=== PATIENT | female | born 1935 | race Caucasian/White ===

== ENCOUNTER 2024-07-08 12:58 | Outpatient (AMB) | payer MEDICARE, SELFPAY ==
--- NOTE | 2024-07-08 13:05 | MHC.OFFVIS ---
Vital Signs 07/08/24 13:06 Height 5 ft 6 in Weight 212 lb BMI 34.2 BP 132/84 Blood Pressure Location Rt brachial Position Sitting Intake Visit Reasons: ENP-Parkinson Intake Note: Patient presents for parkinsons. Allergies No Known Allergies Allergy (Verified 07/08/24 13:08) Medication List - Last Reconciled 07/08/24 by Lucy Vo MD apixaban (Eliquis) 5 mg PO BID carbidopa-levodopa 25-100 mg orally 2 tabs bid and 2 1/2 q noon ( 2-2 1/2-2); clotrimazole-betamethasone 1-0.05 % appl topical dorzolamide 2% drps ophthalmic (eye) dorzolamide-timolol 22.3-6.8 mg/mL ophthalmic (eye) levothyroxine 112 mcg PO DAILY nystatin 1 appl topical BID-TID venlafaxine ER 75 mg PO DAILY venlafaxine ER 37.5 mg PO DAILY HPI Comments Details: 88 year old female with Parkinson's disease diagnosed in 2012 was seen in [facility] for a new patient visit. Her main symptoms are gait , balance issues, difficulty with motor coordination.she lives with her partner at [facility] . She is here with her occasional caregiver Nurse today. She has memory changes, loses things and physical decline. She has bilateral hearing difficulty. Spouse does most of the care taking, - and Sundays she has network security officer come in and help with ADLs. She sleeps in until 9:30am, side sleeper has rails on bed to help her turn over. Has RUDOLPH - not on CPAP, denies hallucinations, needs time for processing, and has scary dreams, (RBD) Mood is anxious, scared about her life and depression. She doesn't exercise, lives in an independent living community. ([facility]) Can dress herself and button her shirt, cut her food uses a knife and fork. Recommended hand writing exercising and coloring to improve hand control. She uses a walker, PT from [facility], after daughter noticed her gait was off balance foot turning in. Has Miralax for constipation and Urinary incontinence at night predominantly, less so during the day. . [facility] Medical History RUDOLPH (obstructive sleep apnea) Afib Hearing loss Glaucoma Depression Hypothyroidism Parkinson's disease with dyskinesia Surgical History History of back surgery Social History Alcohol intake: never Patient Tobacco Use Status: Never used Tobacco Physical Exam Vital Signs: Last Vital Signs BP 132/84 07/08/24 13:06 BMI result Body Mass Index 34.2 Const General: cooperative, comfortable, no acute distress and tired appearing Nutritional Appearance: overweight Orientation/consciousness: patient oriented x3 Limitations: ambulation with walker Neuro Other: Eye - decreased upgazegaze tongue - normal Mild decreased facial expression and blink Voice- dysprosody no rest tremors 1 + R / cog wheeling .Tone normal left UE Hand movements -d ecreased anika FFM decreased foot taps L<R Spinal stenosis past surgery Mild dyskinesias Uses walker, stooped in lower back completely, and leaning to the left upon ambulation. General: patient oriented x3 and moves all extremities Motor exam (neuro): 5/5 motor strength present throughout Deep tendon reflexes (DTR's): Right triceps reflex intensity grade: 1+, Left triceps reflex intensity grade: 1+, Rt Biceps (C5, C6): 1+, Left biceps reflex intensity grade: 1+, Right brachioradialis reflex intensity grade: 1+, Left brachioradialis reflex intensity grade: 1+, Right patellar reflex intensity grade: 1+ and Left patellar reflex intensity grade: 1+ Coordination: [id number] test normal Assessment & Plan Assessment & Plan (1) Parkinson's disease with dyskinesia: Code(s): G20.B1 - Parkinson's disease with dyskinesia, without mention of fluctuations Category: Medical Qualifiers: Fluctuating manifestations: without fluctuating manifestations Qualified Code(s): G20.B1 - Parkinson's disease with dyskinesia, without mention of fluctuations Plan I suggested she continue carbidopa/levodopa 25/100 2- 15/10-2 will consider adding amantadine to help with dyskinesias Home PT will do a more detailed cognitive evaluation during her next visit. Coding Level of Care Code New Pt Level 4 (45672) Complex EM visit Add On G2211 Diagnoses Parkinson's disease with dyskinesia without fluctuating manifestations G20.B1 Fluctuating manifestations: without fluctuating manifestations
[2024-07-08 13:06] VITALS: BP 132/84; BMI 34.2
== END 2024-07-08 13:52 | disposition home or self-care (01) ==
PROVIDERS: PCP Family Medicine; Visit Provider Physician Assistant Medical
DX: G20.B1 Parkinson's disease with dyskinesia, without mention of fluctuations (principal)
CPT/HCPCS: 99204; G2211

== ENCOUNTER → 2024-07-08 12:58 | Outpatient (BNVA) | payer MEDICARE, SELFPAY | PROVIDERS: PCP Family Medicine; Visit Provider Psychiatry & Neurology Neurology | DX: G20.B1 Parkinson's disease with dyskinesia, without mention of fluctuations (principal) | CPT/HCPCS: 99202 ==

== ENCOUNTER 2025-01-19 15:06 | Outpatient (AMB) | payer MEDICARE, SELFPAY ==
[2025-01-19 15:14] VITALS: PULSE 81; O2SAT 102
--- NOTE | 2025-01-19 15:14 | A.OFFVIS_ITS ---
Vital Signs 01/19/25 15:14 Height 5 ft 6 in BMI Reason not done Patient refused/unable Pulse 81 Pulse Source Pulse Oximeter Pulse Oximetry (%) 102 H Oxygen Delivery Method Room Air Intake Visit Reasons: 6m follow up Parkinson Intake Note: Patient presents follow up Parkinson's. lot more concussion. Able to ambulate with walker. has some there with her from 10-4 and 5-9. Patient fell had fractured left hip and had a left hip replacement back in mid October. Saw Dr Raya post surgery next appointment in 1yr. Accompanied by: Other Relationship Allergies No Known Allergies Allergy (Verified 01/19/25 15:18) HPI Comments Details: 89 year old female with Parkinson's disease diagnosed in 2012 was seen in [place], here for f/u. Her rn complex care Meghann the nurse helps with history. She requires daily care with nurses aide M-F 10am to 4pm and again at 5 to 9pm. Her main symptoms are gait, balance issues, difficulty with motor coordination. She lives with her partner at [facility] she has PT/OT with speech therapy on site, she needs one on one assist with walker, and limited wheel chair time due to recetn hip fracture in October 2024, she doesn't like to exercise and has physically declined, refuses meals and can be a good eater at other times, likes to have finger foods can chew and swallow with no dysphagia or drooling, speech is slurred, difficult to understand. Cognitive decline with memory deficits, recent changes she loses things, is more forgetful. On sinemet 2.5mg TID and venlafaxine 37.5mg daily. She has bilateral hearing loss with hearing aids in place. Her partner Keerthi is having a difficult time caring for Fernando since the fall, as Keerthi also has cognitive deficits, M-F the SHINGLE CUTTER is there as Fernando need help with all her ADLs to include showering, eating, toileting and transferring, dressing, cutting up food. She sleeps in until 9:30am, is a good sleeper has rails on bed to help her turn over. Has RUDOLPH - not on CPAP, is having more hallucinations, needs time for processing, and has scary dreams (RBD). Mood is anxious, fidgets in the recliner and worries about her partner's health. She denies constipation, uses miralax daily, wears diapers for incontinence at night. Has UE coarse tremors bilaterally, difficulty with boiler shop mechanic. She uses a walker, PT from [facility], after daughter noticed her gait was off balance foot turning in. She [facility], and will be able to go outside more, pet the therapy dogs and sit outside as the weather is improving. [facility] Medical History RUDOLPH (obstructive sleep apnea) Afib Hearing loss Glaucoma Depression Hypothyroidism Parkinson's disease with dyskinesia Surgical History History of left hip replacement History of back surgery Social History Alcohol intake: never Patient Tobacco Use Status: Never used Tobacco Physical Exam Vital Signs: Last Vital Signs Pulse 81 01/19/25 15:14 Pulse Ox 102 H 01/19/25 15:14 Oxygen Delivery Method Room Air 01/19/25 15:14 Const General: cooperative, comfortable, no acute distress and tired appearing Nutritional Appearance: overweight Orientation/consciousness: patient oriented x3 Limitations: ambulation with walker Neuro Other: Eye - decreased upgaze tongue - normal Mild decreased facial expression and blink Voice- dysprosody, slurred, slow intensity, no drooling. coarse hand tremors anika 1 + R / cog wheeling .Tone normal left UE Hand movements -decreased anika FFM decreased anika foot taps L<R Spinal stenosis past surgery Mild dyskinesias Uses walker, stooped in lower back completely, wheelchair bound today. General: patient oriented x3 and moves all extremities Psych Appearance: well kempt Speech and movement: Slurred speech present and Slowed movement present (Neuro) Assessment & Plan Assessment & Plan (1) Parkinson's disease with dyskinesia: Code(s): G20.B1 - Parkinson's disease with dyskinesia, without mention of fluctuations Category: Medical Qualifiers: Fluctuating manifestations: without fluctuating manifestations Qualified Code(s): G20.B1 - Parkinson's disease with dyskinesia, without mention of fluctuations Plan Parkinsons Dyskinesias continue carbidopa/levodopa 25/100 TID Start 100mg amantadine daily for 3 weeks and will f/u for tolerance of medication, to help with dyskinesias. Continue Home PT/OT and speech as needed. Cognitive Decline will do a more detailed cognitive evaluation during her next visit. Medications: New amantadine HCl may start 100mg daily for the next three weeks and f/u for dose adjustment if tolerating the medication well. 100 mg PO DAILY 30 days 30 caps 1RF parkinsons MDD 100mg po daily G20.B1 - Parkinson's disease with dyskinesia, without mention of fluctuations Patient Instructions: Sleep Hygiene provided: set a scheduled bedtime and wake time to help regulate the circadian rhythm and balance the release of pituitary hormones. Sleep in a dark room, temperatures below 68 degrees, and no devices n bed. Limit caffeinated products 6 hours prior to bed, and limit fluids 2-4 hours prior to bed. Gentle night yoga, diffusing essential oils, and playing soft music can be relaxing. Coding Level of Care Code Est Pt Level 4 (65192) Complex EM visit Add On G2211 Diagnoses Parkinson's disease with dyskinesia without fluctuating manifestations G20.B1 Fluctuating manifestations: without fluctuating manifestations Time Spent (min) 35 Comment cognitive decline, worsening tremors.
--- OUTSIDE RECORDS SUMMARY | 2025-01-19 15:50 | XMS_ITS ---
Author Organization [facility] chioma Address [address] [place] [address] Care Team Providers Care Senior Java Software Engineer Name Role Phone Nahed Ramos Primary Care Provider [phone] Allergies No Known Allergies REASON FOR VISIT f/u parkinsons & constipation (IH), Pt is here with: [facility]- agency nurse from [facility] [employer],was at hospital 11/17-11/23 L femur fracture; notes in pt docs Medications Medication SIG (Take, Route, Frequency, Duration) Notes Start Date End Date Status Magnesium Glycinate 100 MG 1 PO QD Not-Taking AFO BRACE LEFT DIRECTED FOR L FOOT DROP for FOR USE DAILY 05/22/2018 Not-Taking Synthroid 112 MCG 1 tab(s) orally once a day for 90 days Active Fish Oil 1 QD Not-Taking MiraLax Mix-In Ren[place] 17 GM 1/2 packet mixed with 8 ounces of fluid Orally Once a day for 30 days /2 a packet daily in AM 09/20/2024 Active Effexor XR 37.5 MG 1 cap(s) orally once a day for 30 days Active Nystatin 584906 UNIT/GM 1 tye applied topically 3 times a day for 30 days 08/04/2023 Active Vitamin D3 25 MCG (1000 UT) 1 cap(s) PO once a day Active Eliquis 5 MG TAKE 1 TABLET BY MOUTH TWICE A DAY for 90 Active Cosopt 2.23%-0.68% 1 GTT IN R EYE 2 TIMES A DAY Active Artificial Tears Act andrés Sinemet 25-100 MG 2.5 tab(s) orally 3 times a day 2, then 2 1/2, then 2 Active REFRESH PM - 1 TYE IN EACH EYE RIGHT EYE AT PM Active Tylenol Extra Strength 500 MG 2 tabsthree times dailyprn Active Miconazole Nitrate 2 % 1 tye applied topically 2 times a day prn Active Multivitamin - 1 tablet Orally Once a day Active Senna 8.6 MG 2 tablets at bedtime Orally Once a day at night Active Social History Tobacco Use: Social History Observation Description Date Details (start date - stop date) Never Smoker NA - NA Smoking Smart Form: Question Answer Notes Are you a: nonsmoker Section Notes: Pt good friends w/ Mag Abbott and Marly (pt's here) [place] [facility] [facility] Andreea lives in [facility] [phone], cell is [phone]. HCP Invoked--06/2023(ANDREEA) HCP backup is Roger [place] [phone] rent a daughter Rosalina lives locally [phone] is local Vital Signs Temperature 96.7 degrees Fahrenheit 12/28/19 25 Blood pressure systolic 110 mm Hg 12/28/19 25 Blood pressure diastolic 70 mm Hg 025 Oximetry 97 12/27/2024 Encounters Encounter Location Date Provider Diagnosis [facility] [address] [address] 12/27/2024 Nahed Ramos Parkinson's disease with dyskinesia, with fluctuations G20.B2 ; Unspecified fracture of left femur, initial encounter for closed fracture S72.92XA ; Muscle weakness (generalized) M62.81 ; Hypothyroidism E03.9 and RUDOLPH G47.33 Assessments Encounter Date Diagnosis (ICD Code) Assessment Notes Treatment Notes Treatment Clinical Notes Section Notes 12/27/2024 Parkinson's disease with dyskinesia, with fluctuations (ICD-10 - G20.B2) met w nurse hvac project manager and patient dirctly also review of hospital paperwork and plan of care total time spent 42 minutes 12/27/2024 Unspecified fracture of left femur, initial encounter for closed fracture (ICD-10 - S72.92XA) 12/27/2024 Muscle weakness (generalized) (ICD-10 - M62.81) 12/27/2024 Hypothyroidism (ICD-10 - E03.9) 12/27/2024 RUDOLPH (ICD-10 - G47.33) Plan Of Treatment Treatment Notes Assessment Notes Parkinson's disease with dys kinesia, with fluctuations met w nurse hvac project manager and patient chelitaly Next Appt Details Follow Up: prn, Reason: Provider Name:Nahed shafermelquiades, 05/12/2025 02:00:00 PM, [address], [place], [id number], Progress Notes * CLARY LEESADOB:1935 (89 yo F)Acc No.[id number]:12/27/2024 Progress Note Patient:?PIERRE LEES Appointment Provider:?Nahed Lloyd son :1935???Age:89 Y???Sex:Female D ate:12/27/2024 ?CHN#:[id number] Address:[address] [place], [place] [id number] Subjective: * Chief Complaints: * ???f/u parkinsons & constipa tion (IH)Pt is here with: [facility]- agency nurse from [facility] at hospital 11/17-11/23 L femur fracture; notes in pt docs * HPI: ???Interim History:? returned home after hip fracture now has help in the home and yoly is starting to give up some of the control nurse is filing her meds, the aide gives them at 10 a and 3pm and in get evening still having trouble feeding herseld. needs a lot of coaching and cuing walking w walker even in the home getting PT and OT in the home 2x week right now and the aides in hte home are working w her MCBRIDE and profound fatigue w short walks pt is afraid of falling constantly.. * ROS:?DERMATOLOGY:?Rash?no ,?no bedsores.?GASTROENTEROLOGY:?Constipation?currently controlled w miralax/senna alternating.? * Medical History:? * Surgical History:?spinal chad nosis surgery, Dr. Solis 05/07/2019[facility] ER to [facility] for weak gait 10/30/23-01/15Tooth extraction DH, L hip fracture 11/2024 * Hospitalization/Major Diagno stic Procedure:?[facility]-surgery for spinal stenosis-3 night stay 05/07/2019[facility]- fall, L hip fracture 11/2024 * Family History:?Father: dece ased.?Mother: , Mother may have had cancer, had hysterectomy, pt not sure about hx, diagnosed with Stroke, Diabetes.?Paternal Grand Father: diagnosed with Hypertension.? * Social History:?Lives: lives in an independent living apartment in [place]. Ed: MA. Smoking Smart Form?Are you a:?nonsmoker.?Smoking: no?.?Alcohol: no alcohol. Marital Status: , Yoly Chiang. Children: none. Occupation: Retired, was in [employer] in 1961. Advent: none. Exercise: not much, walks and the PT exercises. Caffeine: None. Pets: Dogs:1--dog 2020. Pt good friends w/ Mag Abbott and Marly (pt's here) lives in [facility] ?Yoly's daugther Andreea lives in [place] home [phone], cell is [phone]. HCP Invoked--06/2023(ANDREEA) HCP backup is Roger Lit [phone] rent a daughter Rosalina lives locally [phone] is local. * Medications:?TakingMultivita min - Tablet 1 tablet Orally Once a day Senna 8.6 MG Tablet 2 tablets at bedtime Orally Once a day at night Tylenol Extra Strength 500 MG Tablet 2 tabsthree times dailyprn Miconazole Nitrate 2 % Cream 1 tye applied topically 2 times a day , Notes to Pharmacist: prnREFRESH PM - OINTMENT 1 TYE IN EACH EYE RIGHT EYE AT PM Artificial Tears Sinemet 25-100 MG Tablet 2.5 tab(s) orally 3 times a day , Notes to Pharmacist: 2, then 2 1/2, then 2Eliquis 5 MG Tablet TAKE 1 TABLET BY MOUTH TWICE A DAY Cosopt 2.23%-0.68% SOLUTION 1 GTT IN R EYE 2 TIMES A DAY Vitamin D3 25 MCG (1000 UT) Tablet 1 cap(s) PO once a day Nystatin 271554 UNIT/GM Powder 1 tye applied topically 3 times a day MiraLax Mix-In Ren[place] 17 GM Packet 1/2 packet mixed with 8 ounces of fluid Orally Once a day 1/2 a packet daily, Notes to Pharmacist: in AMEffexor XR 37.5 MG Capsule Extended Release 24 Hour 1 cap(s) orally once a day Synthroid 112 MCG Tablet 1 tab(s) orally once a day Taking Multivitamin - Tablet 1 tablet Orally Once a day Taking Senna 8.6 MG Tablet 2 tablets at bedtime Orally Once a day at night Taking Tylenol Extra Strength 500 MG Tablet 2 tabsthree times dailyprn Taking Miconazole Nitrate 2 % Cream 1 tye applied topically 2 times a day , Notes to Pharmacist: prnTaking REFRESH PM - OINTMENT 1 TYE IN EACH EYE RIGHT EYE AT PM Taking Artificial Tears Taking Sinemet 25-100 MG Tablet 2.5 tab(s) orally 3 times a day , Notes to Pharmacist: 2, then 2 1/2, then 2Taking Eliquis 5 MG Tablet TAKE 1 TABLET BY MOUTH TWICE A DAY Taking Cosopt 2.23%-0.68% SOLUTION 1 GTT IN R EYE 2 TIMES A DAY Taking Vitamin D3 25 MCG (1000 UT) Tablet 1 cap(s) PO once a day Taking Nystatin 424774 UNIT/GM Powder 1 tye applied topically 3 times a day Taking MiraLax Mix-In [place] 17 GM Packet 1/2 packet mixed with 8 ounces of fluid Orally Once a day 1/2 a packet daily, Notes to Pharmacist: in AMTaking Effexor XR 37.5 MG Capsule Extended Release 24 Hour 1 cap(s) orally once a day Taking Synthroid 112 MCG Tablet 1 tab(s) orally once a day Not-Taking/PRNFish Oil 1 QD Magnesium Glycinate 100 MG Capsule 1 PO QD AFO BRACE LEFT DX: M21.372 DIRECTED FOR L FOOT DROP Not-Taking/PRN Fish Oil 1 QD Not-Taking/PRN Magnesium Glycinate 100 MG Capsule 1 PO QD Not-Taking/PRN AFO BRACE LEFT DX: M21.372 DIRECTED FOR L FOOT DROP DiscontinuedMiraLax - POWDER FOR RECONSTITUTION DIRECTED ORALLY ONCE A DAY , Notes to Pharmacist: in AMBactrim DS 800-160 MG Tablet 1 tablet Orally twice a day Effexor XR 75 MG Capsule Extended Release 24 Hour 1 cap(s) orally once a day Medication List reviewed and reconciled with the patientDiscontinued MiraLax - POWDER FOR RECONSTITUTION DIRECTED ORALLY ONCE A DAY , Notes to Pharmacist: in AMDiscontinued Bactrim DS 800-160 MG Tablet 1 tablet Orally twice a day Discontinued Effexor XR 75 MG Capsule Extended Release 24 Hour 1 cap(s) orally once a day Medication List reviewed and reconciled with the patient * Allergies:?N.K.D.A.no[Allerg ies Verified] Objective: * Vitals:?Initials:ldb, Temp: 96.7 F, Temp Route: T, HR: 96, PulseOx: 97, BP: 110/70. * Examination: ???General Examination: ?General Appearance:?alert and pleasant in nad, vague.?Heart:?normal S1S2.?Lungs:?clear to auscultation bilaterally? breathing is unlabord.?Musculoskeletal?In Wheelchair.? Assessment: * Assessment: 1.?Unspecified fracture of l eft femur, initial encounter for closed fracture - S72.92XA (Primary)???2.?Parkinson's disease with dyskinesia, with fluctuations - G20.B2???3.?Muscle weakness (generalized) - M62.81???4.?Hypothyroidism - E03.9???5.?RUDOLPH - G47.33??? Plan: * Treatment: * Procedure Codes:? * Follow Up:?prn * Images: Billing Information: * Visit Code:? 29901 Office Visit, Established Pt. * Procedure Codes:? Care Plan Details* * Sign off status: Completed true * Appointment Provider:?Gene Ramos MD Date:?12/27/2024 Generated for Printing/Faxing/eTransmitting on:?01/19/2025 03:50 PM EDT History and Physical Notes * HPI (History of Present Illness) Category Sub-Category Detail Notes Category Not es Interim History returned home after hip fracture now has help in the home and yoly is starting to give up some of the control nurse is filing her meds, the aide gives them at 10 a and 3pm and in get evening still having trouble feeding herseld. needs a lot of coaching and cuing walking w walker even in the home getting PT and OT in the home 2x week right now and the aides in hte home are working w her MCBRIDE and profound fatigue w short walks pt is afraid of falling constantly.. Examination Category Sub-Category Detail Notes Category Not es General Examination Heart: normal S1S2 Lungs: clear to auscultatio n bilaterally breathing is unlabord General Appearance: alert and pleasant i n nad, vague Musculoskeletal In Wheelchair
== END 2025-01-19 16:00 | disposition home or self-care (01) ==
LOC: HO.HSMS 15:07
PROVIDERS: PCP Family Medicine; Visit Provider Physician Assistant Medical
DX: G20.B1 Parkinson's disease with dyskinesia, without mention of fluctuations (principal)
CPT/HCPCS: 99214; G2211

== ENCOUNTER → 2025-01-19 15:06 | Outpatient (BNVA) | payer MEDICARE, SELFPAY | PROVIDERS: PCP Family Medicine; Visit Provider Physician Assistant Medical | DX: G20.B1 Parkinson's disease with dyskinesia, without mention of fluctuations (principal); G47.33 Obstructive sleep apnea (adult) (pediatric); R26.89 Other abnormalities of gait and mobility | CPT/HCPCS: 99212 ==

== ENCOUNTER 2025-05-30 13:58 | Outpatient (AMB) | payer MEDICARE, SELFPAY ==
--- OUTSIDE RECORDS SUMMARY | 2025-05-12 12:30 | XMS_ITS ---
Author Organization [facility] chioma Address [address] [place] [address] Care Team Providers Care Light Bulb Assembler Name Role Phone Nahed Ramos Primary Care Provider [phone] REASON FOR VISIT spoke with Meghann regarding refill request Encounters Encounter Location Date Provider Diagnosis [facility] [address] [place] [address] 05/12/2025 Nahed Ramos Plan Of Treatment Next Appt Details Provider Name:Nahed Burk [facility], 07/29/2025 09:00:00 AM, [address] [place], [address], Provider Name:Nahed Burk [facility], 11/23/2025 11:30:00 AM, [address] [place] [address], [phone], Progress Notes * CLARY LEESADOB:1935 (89 yo F)Acc No.[id number]:05/12/2025 Patient: PIERRE AGUIRRE Provider: Lizzy Ramos MD :1935 A ge:89 Y S ex:Female Date:05/12/2025 C HN#:[id number] Address: [place], [place] Subjective: * Chief Complaints: * s poke with Meghann regarding refill request * Electronic signature of Elida Ramos MD on 05/30/2025 at 04:27 PM EDT Sign off status: Pending * Provider: Lizzy Ramos MD Date: 0 05/12/2025 Generated for Bernard kincaid/Nikhil/Fabricio on: 1 04:27 PM EDT
--- OUTSIDE RECORDS SUMMARY | 2025-05-20 04:30 | XMS_ITS ---
Author Organization [facility] chioma Address [address] [place] [address] Care Team Providers Care Psychometric Examiner Name Role Phone Nahed Ramos Primary Care Provider [phone] REASON FOR VISIT care plan Encounters Encounter Location Date Provider Diagnosis [facility] [address] [place] [address] 05/20/2025 Nahed Ramos Plan Of Treatment Next Appt Details Provider Name:Nahed Burk [facility], 07/29/2025 09:00:00 AM, [address] [place], [address], Provider Name:Nahed Burk [facility], 11/23/2025 11:30:00 AM, [address] [place] [address], [phone], Progress Notes * CLARY LEESADOB:1935 (89 yo F)Acc No.[id number]:05/20/2025 Patient: PIERRE AGUIRRE Provider: Lizzy Ramos MD :1935 A ge:89 Y S ex:Female Date:05/20/2025 C HN#:[id number] Address: [place], [place] Subjective: * Chief Complaints: * C are plan * Electronic signature of Elida Ramos MD on 05/30/2025 at 04:26 PM EDT Sign off status: Pending * Provider: Lizzy Ramos MD Date: 0 05/20/2025 Generated for Bernard kincaid/Nikhil/Fabricio on: 1 04:26 PM EDT
--- OUTSIDE RECORDS SUMMARY | 2025-05-25 07:30 | XMS_ITS ---
Author Organization [facility] chioma Address [address] [place] [address] Care Team Providers Care Footwear Sales Coordinator Name Role Phone Nahed Ramos Primary Care Provider Allergies No Known Allergies Results Component Value Reference Range Flag Notes LIPID PANEL Reviewed date:05/27/2025 03:09:38 PM Interpretation: Performing Lab:NL2, [employer] [facility] [address] Ana Saldaña Notes/Report: Received Date: NON-FASTING; NON-FASTING; NON-FASTING; NON-FASTING; NON-FAST CHOLESTEROL, TOTAL 176 <200 mg/dL N HDL CHOLESTEROL 48 > OR = 50 mg/dL L TRIGLYCERIDES 105 <150 mg/dL N LDL-CHOLESTEROL 108 H Reference range: <100 Desirable range <100 mg/dL for primary prevention; <70 mg/dL for patients with CHD or diabetic patients with > or = 2 CHD risk factors. LDL-C is now calculated using the Dwayne-Narciso calculation, which is a validated novel method providing better accuracy than the Friedewald equation in the estimation of LDL-C. Dwayne COSBY et al. CHASE. 2013;310(19): 7360-6122 (http://education.WeHack.It.com/faq/FAQ16 4) CHOL/HDLC RATIO 3.7 <5.0 (calc) N NON HDL CHOLESTEROL 128 <130 mg/dL (calc) N For patients with diabetes plus 1 major ASCVD risk factor, treating to a non-HDL-C goal of <100 mg/dL (LDL-C of <70 mg/dL) is considered a therapeutic option. Vitamin D25 OH Reviewed date:05/25/2025 09:04:04 PM Interpretation: Performing Lab:NL2, [facility] [place], [place] [phone] Ana Saldaña Notes/Report: Received Date: NON-FASTING; NON-FASTING; NON-FASTING; NON-FASTING; NON-FAST VITAMIN D,25-OH,TOTAL,IA 56 30-100 ng/mL N Vitamin D Status 25-OH Vitamin D: Deficiency: <20 ng/mL Insufficiency: 20 - 29 ng/mL Optimal: > or = 30 ng/mL For 25-OH Vitamin D testing on patients on D2-supplementation and patients for whom quantitation of D2 and D3 fractions is required, the QuestAssureD(TM) 25-OH VIT D, (D2,D3), LC/MS/MS is recommended: order code 11306 (patients >2yrs). See Note 1 Note 1 For additional information, please refer to http://education.[employer]/faq/KML319 (This link is being provided for informational/ educational purposes only.) COMPREHENSIVE METABOLIC PANL Reviewed date:05/27/2025 03:09:39 PM Interpretation: Performing Lab:NL2, [facility] Ana Saldaña Notes/Report: Received Date: NON-FASTING; NON-FASTING; NON-FASTING; NON-FASTING; NON-FAST GLUCOSE 104 65-99 mg/dL H Fasting reference interval For someone without known diabetes, a glucose value between 100 and 125 mg/dL is consistent with prediabetes and should be confirmed with a follow-up test. UREA NITROGEN (BUN) 13 7-25 mg/dL N CREATININE 0.54 0.60-0.95 mg/dL L EGFR 89 > OR = 60 mL/min/1.73m2 N BUN/CREATININE RATIO 24 6-22 (calc) H SODIUM 139 135-146 mmol/L N POTASSIUM 4.3 3.5-5.3 mmol/L N CHLORIDE 106 98-110 mmol/L N CARBON DIOXIDE 26 20-32 mmol/L N CALCIUM 8.4 8.6-10.4 mg/dL L PROTEIN, TOTAL 6.1 6.1-8.1 g/dL N ALBUMIN 3.3 3.6-5.1 g/dL L GLOBULIN 2.8 1.9-3.7 g/dL (calc) N ALBUMIN/GLOBULIN RATIO 1.2 1.0-2.5 (calc) N BILIRUBIN, TOTAL 0.4 0.2-1.2 mg/dL N ALKALINE PHOSPHATASE 78 37-153 U/L N AST 10 10-35 U/L N ALT 3 6-29 U/L L Verified by re peat analysis. CBC NO DIFF - 1759 Reviewed date:05/25/2025 09:04:04 PM Interpretation: Performing Lab:HERNÁN2, [facility] Ana Saldaña Notes/Report: Received Date: NON-FASTING; NON-FASTING; NON-FASTING; NON-FASTING; NON-FAST WHITE BLOOD CELL COUNT 5.6 3.8-10.8 Thousand/uL N RED BLOOD CELL COUNT 4.12 3.80-5.10 Million/uL N HEMOGLOBIN 12.0 11.7-15.5 g/dL N HEMATOCRIT 37.7 35.0-45.0 % N MCV 91.5 80.0-100.0 fL N MCH 29.1 27.0-33.0 pg N MCHC 31.8 32.0-36.0 g/dL L For adults, a slight decrease in the calculated MCHC value (in the range of 30 to 32 g/dL) is most likely not clinically significant; however, it should be interpreted with caution in correlation with other red cell parameters and the patient's clinical condition. RDW 13.1 11.0-15.0 % N PLATELET COUNT 302 140-400 Thousand/uL N MPV 9.5 7.5-12.5 fL N TSH Reviewed date:05/25/2025 09:04:04 PM Interpretation: Performing Lab:NL2, [facility] Ana Saldaña Notes/Report: Received Date: NON-FASTING; NON-FASTING; NON-FASTING; NON-FASTING; NON-FAST TSH 4.38 0.40-4.50 mIU/L N REASON FOR VISIT AWV- CE, Here with: Meghann (SKIDDER) & Kevon (SKIDDER), HCP: Mandie Haile (Confirmed) Roger Murrieta (Confirmed), BONE DENSITY: Last 03/10/24, IMMS: Due for PCV20 (checked MIIS-DB) Discuss with provider., here w meghann and kevon her nursing staff Medications Medication SIG (Take, Route, Frequency, Duration) Notes Start Date End Date Status Nystatin 103669 UNIT/GM Powder 1 tye applied topically 3 times a day; Duration: 30 days 08/04/2023 Active Magnesium Glycinate 100 MG Capsule 1 PO QD Active Cosopt 2.23%-0.68% SOLUTION 1 GTT IN R EYE 2 TIMES A DAY Not-Taking/PRN Fish Oil 1 QD Unknown AFO BRACE LEFT DX: M21.372 DIRECTED FOR L FOOT DROP; Duration: FOR USE DAILY 05/22/2018 Unknown Synthroid 112 MCG Tablet 1 tab(s) orally once a day; Duration: 90 days Active Eliquis 5 MG Tablet TAKE 1 TABLET BY MOUTH TWICE A DAY; Duration: 90 days Active Vitamin D3 25 MCG (1000 UT) Tablet 1 cap(s) PO once a day Active MiraLax Mix-In [place] 17 GM Packet 1/2 packet mixed with 8 ounces of fluid Orally Once a day; Duration: 30 days 1/2 a packet daily in AM 09/20/2024 Active Effexor XR 37.5 MG Capsule Extended Release 24 Hour 1 cap(s) orally once a day; Duration: 30 days Active Tylenol Extra Strength 500 MG Tablet 2 tabsthree times dailyprn Active Miconazole Nitrate 2 % Cream 1 tye applied topically 2 times a day prn Active REFRESH PM - OINTMENT 1 TYE IN EACH EYE RIGHT EYE AT PM Active Artificial Tears Act andrés Sinemet 25-100 MG Tablet 2.5 tab(s) orally 3 times a day 2, then 2 1/2, then 2 Active Multivitamin - Tablet 1 tablet Orally Once a day Active Senna 8.6 MG Tablet 2 tablets at bedtime Orally Once a day at night Active Magnesium Malate 1250 (141.7 Mg) MG Tablet as directed Orally Active Dorzolamide HCl 2 % Solution 1 drop into affected eye Ophthalmic Three times a day Active Timolol Maleate 0.5 % Solution 1 drop into affected eye Ophthalmic Once a day Active Immunizations Vaccine Route Administration Date Status Comme nts PREVNAR 20 PURCHASED IM Intramuscular 05/25/2025 Administe ramin Social History Tobacco Use: Social History Observation Description Date Details (start date - stop date) Never Smoker NA - NA Social History Social History Social Info Question Answer Notes Smoking Smart Form: Are you a: nonsmoker Additional Details Category Social Info Options Details Social History Occupation: Retired, was in [employer] in 1961 Alcohol: no alcohol Exercise: not much, walks and the PT exercises Caffeine: None Marital Status: Keerthi Haile Children: none Pets: Dogs:1- dog 2020 Catholic: Congregation lives lives in an inde pendent living apartment in [place] Ed: [place] Section Notes: Pt good friends w/ Mag Abbott and Marly (pt's here) lives in [facility] Christine daugther Andreea lives in [place] home [phone], cell is [phone]. HCP Invoked- 06/2023(ANDREEA) HCP backup is Roger Murrieta [phone] rent a daughter Rosalina lives locally [phone] is local Vital Signs Temperature 97.1 degrees Fahrenheit 05/25/20 25 Blood pressure systolic 124 mm Hg 05/25/20 25 Blood pressure diastolic 70 mm Hg 025 Oximetry 98 05/25/2025 unable to weigh due to fear w transfers. Encounters Encounter Location Date Provider Diagnosis [address] [address] 05/25/2025 Nahed Ramos Adult physical PAULY L Z00.00 ; Parkinson's disease with dyskinesia, with fluctuations G20.B2 ; Osteoporosis NOS M81.0 ; AFib, unspecified I48.91 and Encounter for immunization Z23 Assessments Encounter Date Diagnosis (ICD Code) Assessment Notes Treatment Notes Treatment Clinical Notes Section Notes 05/25/2025 Adult physical NORMAL (ICD-10 - Z00.00) 05/25/2025 Parkinson's disease with dyskinesia, with fluctuations (ICD-10 - G20.B2) 05/25/2025 Osteoporosis NOS (ICD-10 - M81.0) 05/25/2025 AFib, unspecified (ICD-10 - I48.91) 05/25/2025 Encounter for immunization (ICD-10 - Z23) Plan Of Treatment Pending Test Test Name Order Date VITAMIN B6, PLASMA 05/25/2025 Next Appt Details Follow Up: @ 6 mo fu afib/PD , 1 year next CPE, Reason: Provider Name:Nahed Conley At [facility], 07/29/2025 09:00:00 AM, [address], [place], [address], Provider Name:Nahed Conley [facility], 11/23/2025 11:30:00 AM, [address] [place], [address], History and Physical Notes * HPI (History of Present Illness) Category Sub-Category Detail Notes Category Not es Well Senior Visit Mental Status Review Mood Asse ssment:: Done they think she is losing weight.. her appetite is good. she loves ice cream gets therapeutic massage every week she is diong well. the ongoing issues are her 's behavior w her. they continue to work on that. 2 ensure a day and ice cream after meals Functional Ability Review Activities of Daily Living Assessment:: Done walks w walker short distances. w assistance/needs reminders nad they bring a chair behind them staff notice that her right leg turns in a litlee when walking when tired. toilets well w assistance and on a regular schedule. wears a brief--only wet overnight but not during the day feeds herself but needs some cuing sleeps well at night , has short nap after lunch she brushes her own teeth. Falls Risk Assessment:: Done no recent f alls. has around the clock aides and supervision Home Safety Assessment:: Done End of Life Care End of Life Care:: Discussed MO LST as before BMI Review BMI Review:: Done Decision Maker: same .. see chart. Examination Category Sub-Category Detail Notes Category Not es General Examination Neck, Thyroid : supple, no t hyromegaly, no lymphadenopathy, no JVD Heart: irregular irregular rhythm Lungs: clear to auscultatio n bilaterally Abdomen soft, NT/ND General Appearance: awake and mildly int eractive. minimally verbal but in no distress.. some yes/no responses well nourished and hydrated Skin no rash or skin lesi ons Breasts : no lumps felt on eit her side Peripheral pulses: no edema Back: no CVA tenderness Chest: normal shape and exp ansion Musculoskeletal In Wheelchair Progress Notes * CLARY LEESADOB:1935 (89 yo F)Acc No.[id number]:05/25/2025 Patient: PIERRE AGUIRRE Provider: Lizzy Ramos MD :1935 A ge:89 Y S ex:Female Date:05/25/2025 C #:[id number] Address:[address] [place], [place] [address] Subjective: * Chief Complaints: * A [place]- CEHere with: Meghann (SKIDDER) & Kevon (SKIDDER)HCP: Mandie Haile (Confirmed) Roger Murrieta (Confirmed) BONE DENSITY: Last 03/10/24IMMS: Due for PCV20 (checked MIIS-DB) Discuss with provider.Here w meghann and kevon her nursing staff * HPI: Mary abraham Senior Visit: Mental Status Review M ood Assessment: Elizabeth salgado. F unctional Ability Review A ctivities of Daily Living Assessment: Elizabeth salgado walks w walker short distances. w assistance/needs reminders nad they bring a chair behind themstaff notice that her right leg turns in a litlee when walking when tired.toilets well w assistance and on a regular schedule. wears a brief--only wet overnight but not during the dayfeeds herself but needs some cuingsleeps well at night , has short nap after lunchshe brushes her own teeth., F alls Risk Assessment: Elizabeth salgado no recent falls. has around the clock aides and supervision, H ome Safety Assessment: Elizabeth salgado. E nd of Life Care E nd of Life Care: D iscussed MOLST as before. B NH Review B NH Review: Elizabeth salgado. Elizabeth ecision Maker: douglas wolf .. see chart.. they think she is losing weight.. her appetite is good. she loves ice cream gets therapeutic massage every week she is diong well. the ongoing issues are her 's behavior w her. they continue to work on that. 2 ensure a day and ice cream after meals. * ROS: G ASTROENTEROLOGY: Constipation s shivani at night and miralax in day.. stools normal 2-3x week no accidents. 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 Solis 05/07/2019 [facility] ER to [facility] for weak gait 10/30/23-01/15 Tooth extraction 07/2024 [facility], L hip fracture 11/2024 Surgical History verified. * Hospitalization/Major Diagno stic Procedure: [facility] for [facility]-3 night stay 05/07/2019 [facility]- fall, L hip fracture 11/2024 Hospitalization Verified. * Family History: F ather: . M other: , Mother may have had cancer, had hysterectomy, pt not sure about hx, diagnosed with Diabetes, Stroke. P aternal Grand Father: diagnosed with Hypertension. F amily History Verified.. * Social History: Bjorn kimbrough: lives in an independent living apartment in [place]. Ed: [place]. Smoking Smart Form?Are you a: n onsmoker. S moking: no . A lcohol: no alcohol. Marital Status: , Keerthi Haile. Children: none. Occupation: Retired, was in [employer] in 1961. Catholic: Congregation. Exercise: not much, walks and the PT exercises. Caffeine: None. Pets: Dogs:1- dog 2020. Social History Verified. Pt good friends w/ Mag Abbott and Marly (pt's here) lives in [facility] P mechey's daugther Andreea lives in [place] home [phone], cell is [phone]. HCP Invoked- 06/2023(ANDREEA) HCP backup is Roger Murrieta [phone] rent a daughter Rosalina lives locally [phone] is local. * Medications: T akingMagnesium Malate 1250 (141.7 Mg) MG Tablet as directed Orally Dorzolamide HCl 2 % Solution 1 drop into affected eye Ophthalmic Three times a day Timolol Maleate 0.5 % Solution 1 drop into affected eye Ophthalmic Once a day Multivitamin - Tablet 1 tablet Orally Once [...] 1 TABLET BY MOUTH TWICE A DAY Vitamin D3 25 MCG (1000 UT) Tablet 1 cap(s) PO once a day MiraLax Mix-In [place] 17 GM Packet 1/2 packet mixed with 8 ounces of fluid Orally Once a day 1/2 a packet daily, Notes to Pharmacist: in AMEffexor XR 37.5 MG Capsule Extended Release 24 Hour 1 cap(s) orally once a day Synthroid 112 MCG Tablet 1 tab(s) orally once a day Nystatin 126377 UNIT/GM Powder 1 tye applied topically 3 times a day Magnesium Glycinate 100 MG Capsule 1 PO QD Taking Magnesium Malate 1250 (141.7 Mg) MG Tablet as directed Orally Taking Dorzolamide HCl 2 % Solution 1 drop into affected eye Ophthalmic Three times a day Taking Timolol Maleate 0.5 % Solution 1 drop into affected eye Ophthalmic Once a day Taking Multivitamin - Tablet 1 [...] TABLET BY MOUTH TWICE A DAY Taking Vitamin D3 25 MCG (1000 UT) Tablet 1 cap(s) PO once a day Taking MiraLax Mix-In [place] 17 GM Packet 1/2 packet mixed with 8 ounces of fluid Orally Once a day 1/2 a packet daily, Notes to Pharmacist: in AMTaking Effexor XR 37.5 MG Capsule Extended Release 24 Hour 1 cap(s) orally once a day Taking Synthroid 112 MCG Tablet 1 tab(s) orally once a day Taking Nystatin 726811 UNIT/GM Powder 1 tye applied topically 3 times a day Taking Magnesium Glycinate 100 MG Capsule 1 PO QD Not-Taking/PRNCosopt 2.23%-0.68% SOLUTION 1 GTT IN R EYE 2 TIMES A DAY Not-Taking/PRN Cosopt 2.23%- 0.68% SOLUTION 1 GTT IN R EYE 2 TIMES A DAY UnknownFish Oil 1 QD AFO BRACE LEFT DX: M21.372 DIRECTED FOR L FOOT DROP Medication List reviewed and reconciled with the patientUnknown Fish Oil 1 QD Unknown AFO BRACE LEFT DX: M21.372 DIRECTED FOR L FOOT DROP Medication List reviewed and reconciled with the patient * Allergies: N .K.D.A.yesAllergies Verified. Objective: * Vitals: I nitials:db, Temp: 97.1 F, Temp Route: T, HR: 76 /min, PulseOx: 98, BP: 124/70 mm Hg. unable to weigh due to fear w transfers. * Examination: G eneral Examination: General Appearance: a wake and mildly interactive. minimally verbal but in no distress.. some yes/no responses well nourished and hydrated. S kin n o rash or skin lesions. N alexy, Thyroid : s upple, no thyromegaly, no lymphadenopathy, no JVD. C hest: n ormal shape and expansion. B reasts : n o lumps felt on either side. H eart: i rregular irregular rhythm. L ungs: c lear to auscultation bilaterally. A bdomen?soft, NT/ND. B ack: n o CVA tenderness. P eripheral pulses: n o edema. M usculoskeletal I n Wheelchair. Assessment: * Assessment: 1. A dult physical NORMAL - Z00.00 (Primary) 2 . P arkinson's disease with dyskinesia, with fluctuations - G20.B2 3 . O steoporosis NOS - M81.0 ?4. A Fib, unspecified - I48.91 5 . E ncounter for immunization - Z23? Plan: * Treatment: Value Reference Range C HOL/HDLC RATIO 3.7 <5.0 - (calc) * C HOLESTEROL, TOTAL 176 <200 - mg/dL * H DL CHOLESTEROL 48 L > OR = 50 - mg/dL * L DL-CHOLESTEROL 108 H - mg/dL (calc) * N ON-HDL CHOLESTEROL 128 <130 - mg/dL (calc) * T RIGLYCERIDES 105 <150 - mg/dL ?LAB: Vitamin D25 OH (Collection Date & Time - 05/25/2025 12:30 PM)* Value Reference Range V ITAMIN D,25-OH,TOTAL,IA 56 30-100 - ng/mL ?LAB: COMPREHENSIVE METABOLIC PANL (Collection Date & Time - 05/25/2025 12:30 PM)* Value Reference Range G LUCOSE 104 H 65-99 - mg/dL * U CORY NITROGEN (BUN) 13 7-25 - mg/dL * C REATININE 0.54 L 0.60-0.95 - mg/dL * E GFR 89 > OR = 60 - mL/min/1 .73m2 * B UN/CREATININE RATIO 24 H 6-22 - (calc) * S ODIUM 139 135-146 - mmol/L * P OTASSIUM 4.3 3.5-5.3 - mmol/L * C HLORIDE 106 98-110 - mmol/L * C ARBON DIOXIDE 26 20-32 - mmol/L * C ALCIUM 8.4 L 8.6-10.4 - mg/dL * P ROTEIN, TOTAL 6.1 6.1-8.1 - g/dL * A LBUMIN 3.3 L 3.6-5.1 - g/dL * G LOBULIN 2.8 1.9-3.7 - g/dL (calc ) * A LBUMIN/GLOBULIN RATIO 1.2 1.0-2.5 - (calc) * B ILIRUBIN, TOTAL 0.4 0.2-1.2 - mg/dL * A LKALINE PHOSPHATASE 78 37-153 - U/L * A ST 10 10-35 - U/L * A LT 3 L 6-29 - U/L ?LAB: CBC NO DIFF - 1759 (Collection Date & Time - 05/25/2025 12:30 PM)* Value Reference Range W SLIME BLOOD CELL COUNT 5.6 3.8-10.8 - Thousan d/uL * R ED BLOOD CELL COUNT 4.12 3.80-5.10 - Million/ uL * H EMOGLOBIN 12.0 11.7-15.5 - g/dL * H EMATOCRIT 37.7 35.0-45.0 - % * M CV 91.5 80.0-100.0 - fL * M CH 29.1 27.0-33.0 - pg * M CHC 31.8 L 32.0-36.0 - g/dL * R DW 13.1 11.0-15.0 - % * P LATELET COUNT 302 140-400 - Thousand/u L * M PV 9.5 7.5-12.5 - fL ?LAB: TSH (Collection Date & Time - 05/25/2025 12:30 PM)* Value Reference Range T SH 4.38 0.40-4.50 - mIU/L * Immunizations: PREVNAR 20 PURCHASED : 0.5 mL (Route: Intramuscular) given by Velia Macdonald CMA on Left Deltoid (Encounter for immunization) * Procedure Codes: 9 9497 ADVANCED CARE PLANNING FIRST 30 MIN, Modifiers: G0442 ANNUAL ALCOHOL MISUSE SCREEN 15 [id number] [facility] ANNUAL DEPRESSION SCREENING 15 MIN * Preventive Medicine: Screening / Special Tests: F all risk screening F all Risk Assessment: N o falls in the past year. * Follow Up: @ 6 mo fu afib/PD, 1 year next CPE Billing Information: * Visit Code: G0439 Medicare CPE Exam. * Procedure Codes: 37838 ADVANCED CARE PLANNING FIRST 30 MIN. Modifiers: , 44 ANNUAL ALCOHOL MISUSE SCREEN 15 MIN. G0444 [facility] ANNUAL DEPRESSION SCREENING 15 MIN. * Electronic signature of Elida Ramos MD on 05/30/2025 at 04:27 PM EDT Sign off status: Pending * Provider: Lizzy Ramos MD Date: 1 Generated for Printi ng/Faxing/eTransmitting on: 04:27 PM EDT
--- OUTSIDE RECORDS SUMMARY | 2025-05-25 08:15 | XMS_ITS ---
Author Organization [facility] chioma Address [address] [place] [address] Care Team Providers Care Nurse Sitter Name Role Phone Nahed Ramos Primary Care Provider [phone] REASON FOR VISIT send order for BD to [facility] Encounters Encounter Location Date Provider Diagnosis [facility] [address] [place] [address] 05/25/2025 Nahed Ramos Plan Of Treatment Next Appt Details Provider Name:Nahed Burk [facility], 07/29/2025 09:00:00 AM, [address] [place], [address], Provider Name:Nahed Burk [facility], 11/23/2025 11:30:00 AM, [address] [place] [address], [phone], Progress Notes * MARIZA LEESB:1935 (89 yo F)Acc No.[id number]:05/25/2025 Patient: PIERRE AGUIRRE :1935 A ge:89 Y S ex:Female Address: [address] , [place], [address] Subjective: * Chief Complaints: * s end order for BD to [facility] * * Date:
--- OUTSIDE RECORDS SUMMARY | 2025-05-27 05:00 | XMS_ITS ---
Author Organization [facility] chioma Address [address] [place] [address] Care Team Providers Care Unclaimed Property Officer Name Role Phone Nahed Ramos Primary Care Provider [phone] REASON FOR VISIT care plan 3rd attempt Encounters Encounter Location Date Provider Diagnosis [facility] [address] [place] [address] 05/27/2025 Nahed Ramos Plan Of Treatment Next Appt Details Provider Name:Nahed [facility], 07/29/2025 09:00:00 AM, [address] [place], [address], Provider Name:Nahed Burk [facility], 11/23/2025 11:30:00 AM, [address] [place] [address], [phone], Progress Notes * CLARY LEESADOB:1935 (89 yo F)Acc No.[id number]:05/27/2025 Patient: PIERRE AGUIRRE Provider: Lizzy Ramos MD :1935 A ge:89 Y S ex:Female Date:05/27/2025 C HN#:[id number] Address: [address] [place], [place] Subjective: * Chief Complaints: * C are plan 3rd attempt * Electronic signature of Elida Ramos MD on 05/30/2025 at 04:26 PM EDT Sign off status: Pending * Provider: Lizzy Ramos MD Date: 1 Generated for Bernard kincaid/Nikhil/Fabricio on: 1 04:26 PM EDT
--- NOTE | 2025-05-30 14:00 | A.OFFVIS_ITS ---
Vital Signs 05/30/25 14:01 Height 5 ft 6 in BP 122/70 Blood Pressure Location Rt brachial Position Sitting Pulse 88 Pulse Source Pulse Oximeter Pulse Oximetry (%) 97 Oxygen Delivery Method Room Air Intake Visit Reasons: f/u w MD Intake Note: Follow up Parkinson's disease with dyskinesia, without mention of fluctuations Electronic Assembly Required: No Accompanied by: Tad RN Allergies No Known Allergies Allergy (Verified 05/30/25 14:00) Medication List - Last Reconciled 05/30/25 by Lucy Vo MD apixaban (Eliquis) 5 mg PO BID carbidopa-levodopa 25-100 mg orally 2 tabs bid and 2 1/2 q noon ( 2-2 1/2-2); cholecalciferol (vitamin D3) 25 mcg PO DAILY clotrimazole-betamethasone 1-0.05 % appl topical dorzolamide 2% drps ophthalmic (eye) dorzolamide-timolol 22.3-6.8 mg/mL ophthalmic (eye) levothyroxine 112 mcg PO DAILY multivitamin (Daily Multi-Vitamin tablet) 1 tab PO DAILY nystatin 1 appl topical BID-TID sennosides (Black-Draught Lax-Senna) 17.2 mg PO BEDTIME venlafaxine ER 37.5 mg PO DAILY HPI Comments Details: 89 year old female with Parkinson's disease diagnosed in 2012 was seen in [place], [facility] for f/u.she velez shealed from her left hip fracture and surgery . she walks with walker and supervision. she is stable she has certified nursing attendant 10am- 8pm she has mild right hand tremors she is dependant on all ADLs.cognition is same . Her critical care clinical nurse specialist Meghann the nurse helps with history. History from last visit 01/16- Her main symptoms are gait, balance issues, difficulty with motor coordination. She lives with her partner at [facility] apartment she has PT/OT with speech therapy on site, she needs one on one assist with walker, and limited wheel chair time due to recetn hip fracture in October 2024, she doesn't like to exercise and has physically declined, refuses meals and can be a good eater at other times, likes to have finger foods can chew and swallow with no dysphagia or drooling, speech is slurred, difficult to understand. Cognitive decline with memory deficits, recent changes she loses things, is more forgetful. On sinemet 2.5mg TID and venlafaxine 37.5mg daily. She has bilateral hearing loss with hearing aids in place. Her partner Keerthi is having a difficult time caring for Fernando since the fall, as Keerthi also has cognitive deficits, M-F the PV DESIGN AND INSTALLATION TECHNICIAN is there as Fernando need help with all her ADLs to include showering, eating, toileting and transferring, dressing, cutting up food. She sleeps in until 9:30am, is a good sleeper has rails on bed to help her turn over. Has RUDOLPH - not on CPAP, is having more hallucinations, needs time for processing, and has scary dreams (RBD). Mood is anxious, fidgets in the recliner and worries about her partner's health. She denies constipation, uses miralax daily, wears diapers for incontinence at night. Has UE coarse tremors bilaterally, difficulty with mop handle assembler. She uses a walker, PT from [facility], after daughter noticed her gait was off balance foot turning in. [facility], and will be able to go outside more, pet the therapy dogs and sit outside as the weather is improving. [facility] Medical History RUDOLPH (obstructive sleep apnea) Afib Hearing loss Glaucoma Depression Hypothyroidism Parkinson's disease with dyskinesia Surgical History History of left hip replacement History of back surgery Social History Alcohol intake: never Patient Tobacco Use Status: Never used Tobacco Review of Systems Neuro Reports confusion Psych Reports confusion Physical Exam Const General: cooperative, comfortable, no acute distress, confusion and tired appearing Nutritional Appearance: overweight Orientation/consciousness: oriented to person and confusion Limitations: ambulation with walker Neuro Other: Eye - decreased upgaze tongue - normal Mild decreased facial expression and blink Voice- dysprosody, slurred, slow intensity, no drooling. coarse hand tremors anika 1 + R / cog wheeling .Tone normal left UE Hand movements -decreased anika FFM decreased anika foot taps L<R no dyskinesias today General: oriented to person, moves all extremities and confusion Psych Appearance: well kempt Speech and movement: Slurred speech present and Slowed movement present (Neuro) Assessment & Plan Assessment & Plan (1) Parkinson's disease with dyskinesia: Code(s): G20.B1 - Parkinson's disease with dyskinesia, without mention of fluctuations Category: Medical Qualifiers: Fluctuating manifestations: without fluctuating manifestations Qualified Code(s): G20.B1 - Parkinson's disease with dyskinesia, without mention of fluctuations Plan Continue carbidopa/levodopa 2.5 tabs TID Cognitive Decline - 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
[2025-05-30 14:01] VITALS: BP 122/70; PULSE 88; O2SAT 97
--- OUTSIDE RECORDS SUMMARY | 2025-05-30 16:24 | XMS_ITS | Encounter Summary ---
Author Organization [facility] Address [address] [place] [address] Phone Care Team Providers Care Webbing Tacker Name Role Phone Nahed Ramos MD Primary Care Provider + Cha Álvarez MD Unavailable [phone] Cha Álvarez MD Unavailable [phone] Encounter Details Date Type Department Care Team (Latest Contact Info) Description 09/08/2018 Ancillary Orders Virtual Department [address] [place] [address] Morales Ruiz, DO [address] [place] [address] [email or web address] Social History Tobacco Use Types Packs/Day Years Used Date Smoking Tobacco: Never Assessed Comments Unknown Sex and Gender Information Value Date Recorded Sex Assigned at Female 10/06/2024 1:26 PM EST Legal Sex Female 10:13 PM EDT Gender Identity Female 10/06/2024 1:26 PM EST Sexual Orientation Not on file documented as of this encounter Plan of Treatment Upcoming Encounters Date Type Department Care Team (Late st Contact Info) Description 01/11/2026 1:30 PM EDT Office Visit [facility] Orthopedics & Sports Medicine [address] [place] [address] [place] [address] Mina Ceballos MD [address] [place] [address] Orthopedics & Sports Medicine, [place] [address] documented as of this encounter Visit Diagnoses Diagnosis Lumbar radiculopathy Thoracic or lumbosacral neuritis or radiculitis, unspecified documented in this encounter Care Teams Webbing Tacker Relationship Specialty Start Date End Date Nahed Ramos MD [address] [place] [id number] PCP - General Family Medicine 04/21/18 Cha Álvarez MD [address] [place] [address] Consulting Provider Geriatric Medicine 12/29/20 Cha Álvarez MD [address] [place] [address] Geriatric Medicine 06/28/24 documented as of this encounter Additional Source Comments The information contained in this document represents components of the legal health record. It is not the complete legal health record.[facility]
--- OUTSIDE RECORDS SUMMARY | 2025-05-30 16:24 | XMS_ITS | Encounter Summary ---
Author Organization [facility] Address [address] [place] [address] Phone Care Team Providers Care Filling Carrier Name Role Phone Nahed Ramos MD Primary Care Provider + Cha Álvarez MD Unavailable [phone] Cha Álvarez MD Unavailable [phone] Encounter Details Date Type Department Care Team (Late st Contact Info) Description 10/06/2024 Procedure Pass [facility], Ct Scan - [facility] [address] [place] [address] Social History Tobacco Use Types Packs/Day Years Used Date Smoking Tobacco: Former Cigarettes Smokeless Tobacco: Never Education Answer Date Recorded Are you interested in more education? Not on yumiko e 12/20/2022 Are you concerned about learning? Not on file 12/20/2022 No 12/20/2022 No 12/20/2022 Digital Access Answer Date Recorded No 01/18/2023 No 01/18/2023 Reliable internet access at home? Not on file 01/18/2023 Device with a working camera? Not on file Intimate Partner Violence Answer Date R ecorded Are you denied basic needs s uch as food, clothing, or medical care? No 10/30/2023 In the past 12 months have y ou been in a relationship with a person who hurts, threatens, or tries to control you? No 10/30/2023 Are you denied basic needs s uch as food, clothing, or medical care? No 10/30/2023 In the past 12 months have y ou been in a relationship with a person who hurts, threatens, or tries to control you? No 10/30/2023 Comments Unknown Sex and Gender Information Value Date Recorded Sex Assigned at Female 10/06/2024 1:26 PM EST Legal Sex Female 10:13 PM EDT Gender Identity Female 10/06/2024 1:26 PM EST Sexual Orientation Not on file documented as of this encounter Functional Status * Calculated C-SSRS Risk Score (Lifetime/Recent) Answer Date of Assessment Author No Risk Indicated 10/06/2024 1:26 PM Jasmin Terrlel, NIYA * [place] Suicide Severity Rating Scale (Screener/Recent Self-Report) Question Answer Date of Assessment Author 1. Wish to be (Past 1 Month) No 025 1:26 PM Jasmin Terrell, NIYA 2. Non-Specific Active Suici warner Thoughts (Past 1 Month) No 10/06/2024 1:26 PM Jasmin Terrell , NIYA 6. Suicidal Behavior (Lifetime) No 1:26 PM Jasmin Terrell, NIYA documented as of this encounter Plan of Treatment Upcoming Encounters Date Type Department Care Team (Late st Contact Info) Description 01/11/2026 1:30 PM EDT Office Visit [facility] Orthopedics & Sports Medicine [address] [place] [address] [place] [address] Mina Ceballos MD [address] [place] [address] Orthopedics & Sports Medicine, [facility] [place] [address] [email or web address] documented as of this encounter Visit Diagnoses Not on filedocumented in this encounter Additional Health Concerns Assessment Noted Time PHQ-9 Depression Total Score: 24 024 2:46 PM EDT PHQ-2 Depression Total Score: 5 12/02/19 24 2:46 PM EDT documented as of this encounter Care Teams Filling Carrier Relationship Specialty Start Date End Date Nahed Ramos MD [address] [place] [address] [email or web address] PCP - General Family Medicine 04/21/18 Cha Álvarez MD [address] [place] [address] [email or web address] Consulting Provider Geriatric Medicine 12/29/20 Cha Álvarez MD [address] [place] [address] [email or web address] Geriatric Medicine 06/28/24 documented as of this encounter Additional Source Comments The information contained in this document represents components of the legal health record. It is not the complete legal health record.[facility]
--- OUTSIDE RECORDS SUMMARY | 2025-05-30 16:24 | XMS_ITS | Encounter Summary ---
Author Organization [facility] Address [address] [place] [address] Phone Care Team Providers Care Bowling Alley Manager Name Role Phone Nahed Ramos MD Primary Care Provider + Cha Álvarez MD Unavailable [phone] Cha Álvarez MD Unavailable [phone] Encounter Details Date Type Department Care Team (Late st Contact Info) Description 10/06/2024 Procedure Pass [facility], Ct Scan - [facility] [address] [place] [address] Social History Tobacco Use Types Packs/Day Years [...] No Risk Indicated 10/06/2024 1:26 PM Jasmin Terrell, NIYA * [place] Suicide Severity Rating Scale (Screener/Recent Self-Report) Question Answer Date of Assessment Author 1. Wish to be (Past 1 Month) No 025 1:26 PM Jasmin Terrell, NIYA 2. Non-Specific Active Suici warner Thoughts (Past 1 Month) No 10/06/2024 1:26 PM Jsamin Terrell , NIYA 6. Suicidal Behavior (Lifetime) No 1:26 PM Jasmin Terrell, NIYA documented as of this encounter Plan of Treatment Upcoming Encounters Date Type Department Care Team (Late st Contact Info) Description 01/11/2026 1:30 PM EDT Office Visit [facility] Orthopedics & Sports Medicine [address] [place] [address] [place] [address] Mina Ceballos MD [address] [place] [address] Orthopedics & Sports Medicine, [facility] [place] [address] [email or web address] documented as of this encounter Visit Diagnoses Not on filedocumented in this encounter Additional Health Concerns Assessment Noted Time PHQ-9 Depression Total Score: 24 024 2:46 PM EDT PHQ-2 Depression Total Score: 5 12/02/19 24 2:46 PM EDT documented as of this encounter Care Teams Bowling Alley Manager Relationship Specialty Start Date End Date Nahed Ramos MD [address] [place] [address] [email or web address] PCP - General Family Medicine 04/21/18 Cha Álvarez MD [address] [place] [address] [email or web address] Consulting Provider Geriatric Medicine 12/29/20 Cha Álvarez MD [address] [place] [address] [email or web address] Geriatric Medicine 06/28/24 documented as of this encounter Additional Source Comments The information contained in this document represents components of the legal health record. It is not the complete legal health record.[facility]
--- OUTSIDE RECORDS SUMMARY | 2025-05-30 16:24 | XMS_ITS | Patient Health Record ---
Author Organization [facility] Address [address] [place] [address] Care Team Providers Care Feed In Worker Name Role Phone Rachel JEFFERS, Nahed Primary Care Provider Edwige Karla Coe Unavailable [phone] Reason For Referral No Information Medications Medication SIG (Take, Route, Fr equency, Duration) Notes Start Date End Date Status Fish Oil Active Patel 128 Active CoQ-10 Active Sinemet 25-100 MG 1 tablet Orally Three times a day Active Ritalin 5 MG 1 tablet on an empty stomach Orally Twice a day Active Synthroid Active Warfarin Sodium Acti ve Tums Active Vitamin D Active Fiber Active Social History Tobacco use other than smoking: Question Answer Notes Are you an other tobacco user? No Problems Problem Type SNOMED Code ICD Code Onset Dates Problem Status W/U Status Risk Notes Problem Neuralgia (79816247) Neuralgia and neuritis, unspecified (M79.2) Active confirmed Plan Of Treatment No Information Insurance Providers Payer Name Payer Address Payer Phone Subscriber Number Group Number Insured Name Patient Relationship to Insured Coverage Start Date Coverage End Date Medicare National Govt Svcs Inc [address] [place] [address] [phone] [id number] Fernando Motley Self - patient is the insured AARP Secondary to Medicare [address] [place] [address] [phone] [id number] Fernando Motley Self - patient is the insured Medical (General) History Medical History History ICD Code Arthritis Back,Hip,and Knee pain Cataracts Depression Glaucoma A fib Neuropathy Measles Mumps Chicken pox Thyroid disorder Parkinsons disease Joint implants/screws Surgical History Surgery Date(Month/Year) right hip replacement 2007 hernia 2009
--- OUTSIDE RECORDS SUMMARY | 2025-05-30 16:24 | XMS_ITS | Encounter Summary ---
Author Organization [facility] Address [address] [place] [address] Phone Care Team Providers Care Pump Installation And Servicer Name Role Phone Nahed Ramos MD Primary Care Provider + Cha Álvarez MD Unavailable [phone] Cha Álvarez MD Unavailable [phone] Encounter Details Date Type Department Care Team (Late st Contact Info) Description 11/19/2024 Procedure Pass [place] Admitting Dept - Virtual Department [address] [place] [address] Social History Tobacco Use Types Packs/Day Years Used Date Smoking Tobacco: Former Cigarettes Smokeless Tobacco: Never Alcohol Use Standard Drinks/Week Comments Not Currently 0 (1 standard drink = 0.6 oz pur e alcohol) Home Health Assessment: Transportation Answer Date Recorded Lack of Transportation (Medical) No 11/15/2024 Lack of Transportation (Non-Medical) No 11/15/2024 Patient Unable or Declines to Respond No 11/15/2024 Education Answer Date Recorded Are you interested in more education? Not on yumiko e 12/20/2022 Are you concerned about learning? Not on file 12/20/2022 No 12/20/2022 No 12/20/2022 Food Answer Date Recorded Within the past 6 months we worried whether our food would run out before we got money to buy more. Never True 11/17/2024 Within the past 6 months the food we bought just didn't last and we didn't have enough money to get more. Never True Residential Stability Answer Date Recor ded What is your housing situation today? I have katty sing 11/17/2024 How many times have you move d in the past 12 months? Zero (I did not move) 11/17/2024 Paying for Meds Answer Date Recorded Do you have trouble paying for medicines? No 11/17/2024 Paying Utility Bills Answer Date Record ed Do you have trouble paying your heating or elect ricity bill? No 11/17/2024 Transportation Answer Date Recorded Has the lack of transportati on kept you from medical appointments or from getting medications? No 11/17/2024 Digital Access Answer Date Recorded No 11/17/2024 Yes 11/17/2024 Do you have reliable internet access at home? Ye s 11/17/2024 Do you have a device (e.g., phone, tablet, computer) with a working camera? Yes 11/17/2024 Intimate Partner Violence Answer Date R ecorded Are you denied basic needs s uch as food, clothing, or medical care? Patient unable to respond 11/17/2024 In the past 12 months have y ou been in a relationship with a person who hurts, threatens, or tries to control you? Patient unable to respond 11/17/2024 Are you denied basic needs s uch as food, clothing, or medical care? Patient unable to respond 11/17/2024 In the past 12 months have y ou been in a relationship with a person who hurts, threatens, or tries to control you? Patient unable to respond 11/17/2024 Comments Unknown Sex and Gender Information Value Date Recorded Sex Assigned at Female 10/06/2024 1:26 PM EST Legal Sex Female 10:13 PM EDT Gender Identity Female 10/06/2024 1:26 PM EST Sexual Orientation Not on file documented as of this encounter Plan of Treatment Upcoming Encounters Date Type Department Care Team (Late st Contact Info) Description 01/11/2026 1:30 PM EDT Office Visit [facility] Orthopedics & Sports Medicine [address] [place] [address] Dr Real KEENA [address] Mina Ceballos MD [address] [place] [address] Orthopedics & Sports Medicine, [facility] [place] [address] documented as of this encounter Visit Diagnoses Not on filedocumented in this encounter Additional Health Concerns Assessment Noted Time PHQ-9 Depression Total Score: 24 024 2:46 PM EDT PHQ-2 Depression Total Score: 5 12/02/19 24 2:46 PM EDT documented as of this encounter Care Teams Pump Installation And Servicer Relationship Specialty Start Date End Date Nahed Ramos MD [address] [place] [address] PCP - General Family Medicine 04/21/18 Cha Álvarez MD [address] [place] [address] Consulting Provider Geriatric Medicine 12/29/20 Cha Álvarez MD [address] [place] [address] Geriatric Medicine 06/28/24 documented as of this encounter Additional Source Comments The information contained in this document represents components of the legal health record. It is not the complete legal health record.[facility]
--- OUTSIDE RECORDS SUMMARY | 2025-05-30 16:24 | XMS_ITS | Encounter Summary ---
Author Organization [facility] Address [address] [address] Phone Care Team Providers Care Ophthalmic Surgeon Name Role Phone Nahed Ramos MD Primary Care Provider + Cha Álvarez MD Unavailable [phone] Cha Álvarez MD Unavailable [phone] Encounter Details Date Type Department Care Team (Late st Contact Info) Description 03/12/2019 Ancillary Orders Non-Invasive Cardiology [address] [place] [address] Nahed Ramos MD [address] [place] [address] [email or web address] Chest pain, unspecified type; Atrial fibrillation, unspecified type Social History Tobacco Use Types Packs/Day Years [...] Description 01/11/2026 1:30 PM EDT Office Visit [facility] Orthopedics & Sports Medicine [address] [place] [address] [place] [address] Mina Ceballos MD [address] [place] [address] Orthopedics & Sports [facility] [place] [address] [email or web address] documented as of this encounter Results * NC Stress Result for Nuclear Stress Test (03/12/2019 12:03 PM EDT) Max BP Systolic 112 mmHg [facility] Max BP Diastolic 70 mmHg [facility] Max HR 97 BPM [facility] Resting HR 75 BPM [facility] Resting BP Systolic 112 mmHg [facility] Resting BP Diastolic 70 mmHg [facility] Peak METS 1.0 METS [facility] Peak HR 86 BPM [facility] Anatomical Region Laterality Modality Heart Other 03/12/2019 11:3 1 AM EDT 03/12/2019 12:06 PM EDT Narrative 03/12/2019 5:32 PM EDT This report represents only part of the nuclear stress test - sestamibi images will be reported separately by the Dept. of Radiology. Stress Findings Sestamibi images will be reported out separately by the Department of Radiology. This report represents only part of the nuclear stress test. Correlation of the imaging and electrocardiographic results is necessary. Since both tests have a percentage of false negatives/positives, both results must be correlated with the patient's other clinical date. Response to Stress The patient exercised for minutes seconds, achieving 1.0 METS at peak exercise. Baseline blood pressure was 112/70 mmHg, and baseline heart rate was 75 bpm. The patient achieved a peak heart rate of 86 bpm, which is% of their maximum predicted heart rate. 0.4 mg Regadenoson (lexiscan) given IV push over 10 seconds as per protocol immediately followed by injection of Tc99m Sestamibi by Chere[employer] nuclear process engineer. 1. EKG - Baseline EKG showed atrial fibrillation, RBBB. No ischemic EKG changes after injection of Lexiscan. 2. SYMPTOMS - Pt reported chest pressure and heaviness with breathing after injection of Lexiscan which lasted about 2-3 min and resolved spontaneously. 3. PHYSIOLOGY - Resting HR was 75. After Lexiscan injection, HR 96 4. ARRHYTHMIAS - afib throughout Conclusion - no ischemic EKG changes with pharm testing. Nuclear images pending and will be reported separately. Donavon Leon STOCKROOM SELECTOR with Dr Renae . us Nahed Ramos MD CV NM CARDIAC Final Re sult documented in this encounter Visit Diagnoses Diagnosis Chest pain, unspecified type Atrial fibrillation, unspecified type Chest pain, unspecified type Atrial fibrillation, unspecified type documented in this encounter Care Teams Ophthalmic Surgeon Relationship Specialty Start Date End Date Nahed Ramos MD [address] [place] [id number] PCP - General Family Medicine 04/21/18 Cha Álvarez MD [address] [place] [address] Consulting Provider Geriatric Medicine 12/29/20 Cha Álvarez MD [address] [place] [address] Geriatric Medicine 06/28/24 documented as of this encounter Additional Source Comments The information contained in this document represents components of the legal health record. It is not the complete legal health record.[facility]
--- OUTSIDE RECORDS SUMMARY | 2025-05-30 16:24 | XMS_ITS | Encounter Summary ---
Author Organization [facility] Address [address] [place] [phone] Phone Care Team Providers Care Inspector Packer Name Role Phone Nahed Ramos MD Primary Care Provider + Cha Álvarez MD Unavailable [phone] Cha Álvarez MD Unavailable [phone] Reason for Referral * MRI/CAT Scan - Closed Specialty Diagnoses / Procedures Referred By Mary t Referred To Contact Radiology Diagnoses Chest pain, unspecified type Atrial fibrillation, unspecified type Procedures NC Myocardial Perfusion Pharmacologic Stress Multiple Nahed Ramos MD Phone: tel: fax: mailto:[email or web address] Referral ID Status Reason Start Date Expiration Date Visits Re quested Visits Authorized [id number] Closed 02/26/2019 02/26/2020 1 1 Encounter Details Date Type Department Care Team (Late st Contact Info) Description 02/26/2019 Transcribe Orders Virtual Department [address] [place] [address] Nahed Ramos MD [address] [place] [id number] [email or web address] Chest pain, unspecified type (Primary Dx); Atrial fibrillation, unspecified type Social History Tobacco [...] Encounters Date Type Department Care Team (Late Contact Info) Description 01/11/2026 1:30 PM EDT Office Visit [facility] [address] [place] [address] [place] [address] Mina Ceballos MD [address] [place] [address] Orthopedics & Sports Medicine, [place] [address] [email or web address] documented as of this encounter Results * NC Myocardial Perfusion Pharmacologic Stress Multiple (03/12/2019 12:55 PM EDT) Anatomical Region Laterality Modality Heart, Vascular Nuclear Medicine 03/12/2019 1:00 PM EDT Impressions 03/12/2019 1:03 PM EDT No findings of significant prior infarction or current ischemia are seen. S/S: Atrial fibrillation, chest pain POS - [id number] Narrative 03/12/2019 1:03 PM EDT The patient is injected intravenously with 8.9 mCi of Tc99m labeled Cardiolite at rest and 28.8 mCi with the same agent at stress. SPECT images are obtained of both injections. The patient could not be gated because of atrial fibrillation.. The patient is stressed utilizing Lexiscan. Evaluation of the left ventricular perfusion discloses no significant fixed or reversible perfusion defects. No findings of prior infarction or current ischemia are seen.. The patient could not be gated and therefore an ejection fraction is not estimated. TID ratio 1.09. Procedure Note Layton Blackwell MD - 03/12/2019 The patient is injected intravenously with 8.9 mCi of Tc99m labeledCardiolite at rest and 28.8 mCi with the same agent at stress. SPECTimages are obtained of both injections. The patient could not be gatedbecause of atrial fibrillation.. The patient is stressed utilizingLexiscan. Evaluation of the left ventricular perfusion discloses no significantfixed or reversible perfusion defects. No findings of prior infarction orcurrent ischemia are seen.. The patient could not be gated and thereforean ejection fraction is not estimated. TID ratio 1.09. IMPRESSION: No findings of significant prior infarction or current ischemia areseen. S/S: Atrial fibrillation, chest pain POS - [id number] Nahed Ramos MD CV NM CARDIAC Final Re sult documented in this encounter Visit Diagnoses Diagnosis Chest pain, unspecified type- Primary Atrial fibrillation, unspecified type Chest pain, unspecified type Atrial fibrillation, unspecified type documented in this encounter Care Teams Inspector Packer Relationship Specialty Start Date End Date Nahed Ramos MD [address] [place] [phone] PCP - General Family Medicine 04/21/18 Cha Álvarez MD [address] [place] [address] Consulting Provider Geriatric Medicine 12/29/20 Cha Álvarez MD [address] [place] [address] [email or web address] Geriatric Medicine 06/28/24 documented as of this encounter Additional Source Comments The information contained in this document represents components of the legal health record. It is not the complete legal health record.[facility]
--- OUTSIDE RECORDS SUMMARY | 2025-05-30 16:24 | XMS_ITS | Encounter Summary ---
Author Organization [facility] Address [address] [place] [address] Phone Care Team Providers Care Classifier Operator Name Role Phone Nahed Ramos MD Primary Care Provider + Cha Álvarez MD Unavailable [phone] Cha Álvarez MD Unavailable [phone] Encounter Details Date Type Department Care Team (Late st Contact Info) Description 11/17/2024 Procedure Pass [facility], Ct Scan - [address] [address] Social History Tobacco Use Types Packs/Day Years [...] Date of Assessment Author No Risk Indicated 11/17/2024 4:04 AM EDT Vale Guaman RN * [place] Suicide Severity Rating Scale (Screener/Recent Self-Report) Question Answer Date of Assessment Author 1. Wish to be (Past 1 Month) No 11/17/2024 4:04 AM EDT Morro Del Toro RN 2. Non-Specific Active Suici warner Thoughts (Past 1 Month) No 11/17/2024 4:04 AM EDT Richie Del Toro RN 6. Suicidal Behavior (Lifetime) No 4:04 AM EDT Vale Del Toro RN documented as of this encounter Plan of Treatment Upcoming Encounters Date Type Department Care Team (Late st Contact Info) Description 01/11/2026 1:30 PM EDT Office Visit [facility] [address] [place] [address] [place] [address] Mina Ceballos MD [address] [place] [address] Orthopedics & Sports Medicine, [place] [address] [email or web address] documented as of this encounter Visit Diagnoses Not on filedocumented in this encounter Additional Health Concerns Assessment Noted Time PHQ-9 Depression Total Score: 24 024 2:46 PM EDT PHQ-2 Depression Total Score: 5 12/02/19 24 2:46 PM EDT documented as of this encounter Care Teams Classifier Operator Relationship Specialty Start Date End Date Nahed Ramos MD [address] [place] [address] [place] [address] [email or web address] PCP - General Family Medicine 04/21/18 Cha Álvarez MD [address] [place] [address] [place] [address] [email or web address] Consulting Provider Geriatric Medicine 12/29/20 Cha Álvarez MD [address] [place], [place] [id number] [email or web address] Geriatric Medicine 06/28/24 documented as of this encounter Additional Source Comments The information contained in this document represents components of the legal health record. It is not the complete legal health record.[facility]
--- OUTSIDE RECORDS SUMMARY | 2025-05-30 16:25 | XMS_ITS | Patient Health Record ---
Author Organization [facility] Address [address] [place] [address] Care Team Providers Care Valve Inserter Name Role Phone Nahed Ramos Primary Care Provider JoaoCaroline Unavailable [phone] Allergies No Known Allergies Results Component Value Reference Range Flag Notes URINE MICROSCOPIC Reviewed date:11/17/2024 08:57:26 AM Interpretation: Performing Lab: Notes/Report: WBC 0-4 NONE SEEN /hpf A RBC 6-10 NONE SEEN /hpf A URINE EPITHELIAL NONE SEEN NONE SEEN MUCUS NONE SEEN NONE SEEN /hpf BACTERIA Trace NONE SEEN /hpf A Troponin T Reviewed date:11/17/2024 08:58:00 AM Interpretation: Performing Lab: Notes/Report: TROPONIN-T, HS GEN5 12 0-9 ng/L H CBC AND DIFFERENTIAL Reviewed date:11/17/2024 08:58:04 AM Interpretation: Performing Lab: Notes/Report: WBC 10.89 4.00-11.00 K/uL RBC 4.70 4.00-5.20 M/uL HGB 15.0 12.0-16.0 g/dL HCT 45.9 36.0-46.0 % PLT 263 150-450 K/uL MCV 97.7 80.0-100.0 fL MCH 31.9 27.0-31.0 pg H MCHC 32.7 32.0-36.0 g/dL RDW 12.8 11.5-14.5 % MPV 9.3 8.4-12.0 fL NRBC 0.00 0.00 /100 WBCs ABSOLUTE NRBC 0.00 0.00 K/uL DIFF METHOD Auto NEUTS 85.9 48.0-76.0 % H LYMPHS 6.1 18.0-41.0 % L MONOS 6.0 4.0-11.0 % EOS 0.8 0.0-5.0 % BASOS 0.4 0.0-1.5 % GRANULOCYTES, IMMATURE (%) 0.8 0.0-0.9 % ABSOLUTE NEUTS 9.36 1.92-7.60 K/uL H ABSOLUTE LYMPHS 0.66 0.72-4.10 K/uL L ABSOLUTE MONOS 0.65 0.16-1.10 K/uL ABSOLUTE EOS 0.09 0.00-0.50 K/uL ABSOLUTE BASOS 0.04 0.00-0.15 K/uL GRANULOCYTES, IMMATURE 0.09 0.00-0.09 K/uL Urinalysis w/reflex Urine Cu lture Reviewed date:11/17/2024 08:57:28 AM Interpretation: Performing Lab: Notes/Report: COLOR Yellow Yellow CLARITY Clear GLUCOSE Negative Negative BILI Negative Negative KETONES Negative Negative SPECIFIC GRAVITY 1.015 1.005-1.030 BLOOD 1+ Negative A PH 7.5 5.0-8.0 PROTEIN Negative Negative NITRITE Negative Negative LEUKOCYTE ESTERASE, UR Negative Negative MRSA/MSSA PRE-OP PCR Reviewed date:11/17/2024 07:52:03 PM Interpretation: Performing Lab: Notes/Report: MRSA PCR SCREEN Negative Negative SA PCR SCREEN Negative Negative The Xpert M RSA Assay is intended to aid in the prevention and control of MRSA infections in healthcare settings. The assay is not intended to diagnose nor to guide or monitor treatment for MRSA infections. CT CERVICAL SPINE WITHOUT CO NTRAST Reviewed date:11/17/2024 08:57:55 AM Interpretation: Performing Lab: Notes/Report: CT HEAD WITHOUT CONTRAST, CT CERVICAL SPINE WITHOUT CONTRAST Referring clinician's provided indication for this examination in [facility]: * Head trauma, minor (Age >= 65y) TECHNIQUE: CTs of the head and cervical spine were performed without intravenous contrast using tailored dose modulation techniques. Images were reconstructed in the axial, coronal, and sagittal planes. COMPARISON: CT HEAD WITHOUT CONTRAST 2024- FINDINGS: HEAD: Brain Parenchyma: No midline shift, mass effect, parenchymal hemorrhage, or evidence of acute territorial infarct. Hypodensities in the periventricular white matter, likely a manifestation of chronic small vessel disease. Chronic right MCA territory infarct. Ventricular System and Extra-Axial Spaces: The ventricles and sulci are prominent. No extra-axial fluid collections. Basilar cisterns are patent. No hydrocephalus. Similar partially calcified right frontal extra-axial lesion likely meningioma. Osseous and Extracranial Structures: No calvarial fracture or significant soft tissue hematoma. No significant paranasal sinus disease. Bilateral lens replacements. CERVICAL SPINE: Alignment and Vertebrae: Alignment is unchanged. Vertebral bodies and posterior elements are intact. Discs and Endplates: Multilevel degenerative changes. Other Findings: None. IMPRESSION: 1. No acute intracranial findings. 2. No acute fracture or traumatic malalignment of the cervical spine. Interpreted by: Merlin Armstrong MD Signed by: Merlin Armstrong MD 11/17/24 Final result [facility] CT HEAD WITHOUT CONTRAST Reviewed date:11/17/2024 08:57:52 AM Interpretation: Performing Lab: Notes/Report: CT HEAD WITHOUT CONTRAST, CT CERVICAL SPINE WITHOUT CONTRAST Referring clinician's provided indication for this examination in Epic: * Head trauma, minor (Age >= 65y) TECHNIQUE: CTs of the head and cervical spine were performed without intravenous contrast using tailored dose modulation techniques. Images were reconstructed in the axial, coronal, and sagittal planes. COMPARISON: CT HEAD WITHOUT CONTRAST FINDINGS: HEAD: Brain Parenchyma: No midline shift, mass effect, parenchymal hemorrhage, or evidence of acute territorial infarct. Hypodensities in the periventricular white matter, likely a manifestation of chronic small vessel disease. Chronic right MCA territory infarct. Ventricular System and Extra-Axial Spaces: The ventricles and sulci are prominent. No extra-axial fluid collections. Basilar cisterns are patent. No hydrocephalus. Similar partially calcified right frontal extra-axial lesion likely meningioma. Osseous and Extracranial Structures: No calvarial fracture or significant soft tissue hematoma. No significant paranasal sinus disease. Bilateral lens replacements. CERVICAL SPINE: Alignment and Vertebrae: Alignment is unchanged. Vertebral bodies and posterior elements are intact. Discs and Endplates: Multilevel degenerative changes. Other Findings: None. IMPRESSION: 1. No acute intracranial findings. 2. No acute fracture or traumatic malalignment of the cervical spine. Interpreted by: Merlin Armstrong MD Signed by: Merlin Armstrong MD 11/17/24 Final result Imaging [facility] CT LUMBAR SPINE WITHOUT CONT RAST Reviewed date:11/17/2024 08:57:41 AM Interpretation: Performing Lab: Notes/Report: CT LUMBAR SPINE WITHOUT CONTRAST Referring clinician's provided indication for this examination in [facility]: * Polytrauma, critical, T/L spine injury suspected TECHNIQUE: Multidetector-row CT of the lumbar spine was performed without intravenous contrast using tailored dose modulation techniques. Images were reconstructed in the axial, coronal, and sagittal planes. COMPARISON: MRI LUMBAR SPINE (NEURO) WITHOUT CONTRAST FINDINGS: LUMBAR SPINE: Evaluation degraded by artifact related to patient habitus, streak artifact from spinal hardware, and nonstandard reconstructions. Alignment and Vertebrae: Postsurgical changes of L3-L5 posterior fusion. Hardware appears intact. No acute traumatic malalignment. No acute displaced fracture. Grade 1 anterolisthesis of L3-L4 and L4-L5, appears grossly similar to prior MRI allowing for suboptimal quality on the current exam. Discs and Endplates: Severe degenerative disc disease at L2-L3, likely related to altered mechanics in the setting of spinal fusion. Overall mild degenerative changes at the remaining levels. Soft Tissue: No prevertebral soft tissue thickening. Other Findings: Atherosclerosis. Calcified fibroids. IMPRESSION: No acute displaced fracture or dislocation. Interpreted by: Merlin Armstrong MD Signed by: Merlin Armstrong MD 11/17/24 Final result [facility] XR HIP WITH PELVIS (LEFT) 2 - 3 VIEWS Reviewed date:11/17/2024 08:57:24 AM Interpretation: Performing Lab: Notes/Report: XR HIP 2 VW LEFT PLUS PELVIS Referring clinician's provided indication for this examination in [facility]: S/P Fall COMPARISON: XR PELVIS 1-2 VIEW 2024- FINDINGS: Pelvis: Pelvic ring is intact. Intact sacroiliac joints and pubic symphysis. There is symmetric bilateral periosteal reaction along the superior pubic rami, nonspecific. Right hip arthroplasty, partially imaged. Increased density of the left iliac bone, likely due to overlying bowel contents. Large amount of stool in the rectum. Left hip: Left femoral neck fracture with superior displacement of the femoral shaft. IMPRESSION: Displaced left femoral neck fracture. ATTESTATION: Cecille Chahal as teaching physician, have reviewed the images for this case and if necessary edited the report originally created by Ginette Herrera MD. Interpreted by: Cecille Galeas MD Kaur, Mehrvaan, MBBS Signed by: Cecille Galeas MD 11/17/24 Final result s/p Fall. Best images obtained due to pt habitus Imaging [facility] Troponin T Reviewed date:11/17/2024 08:57:22 AM Interpretation: Performing Lab: Notes/Report: TROPONIN-T, HS GEN5 13 0-9 ng/L H CBC Reviewed date:11/20/2024 05:11:28 PM Interpretation: Performing Lab: Notes/Report: WBC 10.29 4.00-11.00 K/uL RBC 4.40 4.00-5.20 M/uL HGB 14.5 12.0-16.0 g/dL HCT 42.4 36.0-46.0 % MCV 96.4 80.0-100.0 fL MCH 33.0 27.0-31.0 pg H MCHC 34.2 32.0-36.0 g/dL RDW 13.0 11.5-14.5 % MPV 10.2 8.4-12.0 fL PLT 154 150-450 K/uL NRBC 0.00 0.00 /100 WBCs ABSOLUTE NRBC 0.00 0.00 K/uL BASIC METABOLIC PANEL Reviewed date:11/20/2024 05:09:51 PM Interpretation: Performing Lab: Notes/Report: SODIUM 139 133-146 mmol/L CHLORIDE 105 96-108 mmol/L POTASSIUM 3.7 3.3-5.1 mmol/L Specimen s lightly hemolyzed, result may be falsely elevated. CO2 25 21-35 mmol/L BUN 16 6-19 mg/dL CREATININE 0.50 0.5-1.5 mg/dL GLUCOSE 110 70-99 mg/dL H CALCIUM 8.4 8.4-10.3 mg/dL EGFR 91 >59 mL/min/1.73m2 Estimat ed glomerular filtration rate calculated using the CKD-EPI refit equation. ANION GAP 13 10-20 mmol/L 25-OH vitamin D Reviewed date:11/20/2024 05:09:41 PM Interpretation: Performing Lab: Notes/Report: 25 OH VIT D (TOTAL) 29 30-60 ng/mL L TSH Reviewed date:11/20/2024 05:09:47 PM Interpretation: Performing Lab: Notes/Report: TSH 3.21 0.27-4.20 uIU/mL Vitamin B12 Reviewed date:11/20/2024 05:09:45 PM Interpretation: Performing Lab: Notes/Report: VITAMIN B12 829 079-3375 pg/mL L CBC NO DIFF - 1759 Reviewed date:05/25/2025 09:04:04 PM Interpretation: Performing Lab:NL2, [facility] Ana Saldaña Notes/Report: Received Date: NON-FASTING; [...] Thousand/uL N MPV 9.5 7.5-12.5 fL N COMPREHENSIVE METABOLIC PANL Reviewed date:05/27/2025 03:09:39 PM Interpretation: Performing Lab:NL2, Social [facility] Ana Saldaña Notes/Report: Received Date: NON-FASTING; [...] U/L L Verified by re peat analysis. Vitamin D25 OH Reviewed date:05/25/2025 09:04:04 PM Interpretation: Performing Lab:NL2, Social 2 Step [facility] [address] Ana Saldaña Notes/Report: Received Date: NON-FASTING; [...] D, (D2,D3), LC/MS/MS is recommended: order code 76414 (patients >2yrs). See Note 1 Note 1 For additional information, please refer to http://education.[employer]/faq/FAQ1 99 (This link is being provided for informational/ educational purposes only.) LIPID PANEL Reviewed date:05/27/2025 03:09:38 PM Interpretation: Performing Lab:NL2, Social [facility] Step [facility] [address] [place], [place] [id number] Ana Millardruss Notes/Report: Received Date: NON-FASTING; NON-FASTING; NON-FASTING; NON-FASTING; [...] LDL-C. Dwayne COSBY et al. CHASE. 2013;310(19): 8009-9895 (http://education.[employer]/faq/FAQ 164) CHOL/HDLC RATIO 3.7 <5.0 (calc) N NON HDL CHOLESTEROL 128 <130 mg/dL (calc) N For patients with diabetes plus 1 major ASCVD risk factor, treating to a non-HDL-C goal of <100 mg/dL (LDL-C of <70 mg/dL) is considered a therapeutic option. CBC Reviewed date:11/20/2024 04:58:50 PM Interpretation: Performing Lab: Notes/Report: WBC 11.45 4.00-11.00 K/uL H RBC 4.20 4.00-5.20 M/uL HGB 13.3 12.0-16.0 g/dL HCT 40.3 36.0-46.0 % MCV 96.0 80.0-100.0 fL MCH 31.7 27.0-31.0 pg H MCHC 33.0 32.0-36.0 g/dL RDW 12.5 11.5-14.5 % MPV 10.0 8.4-12.0 fL PLT 217 150-450 K/uL NRBC 0.00 0.00 /100 WBCs ABSOLUTE NRBC 0.00 0.00 K/uL BASIC METABOLIC PANEL Reviewed date:11/20/2024 04:58:44 PM Interpretation: Performing Lab: Notes/Report: SODIUM 140 133-146 mmol/L CHLORIDE 104 96-108 mmol/L POTASSIUM 3.6 3.3-5.1 mmol/L CO2 25 21-35 mmol/L BUN 19 6-19 mg/dL CREATININE 0.70 0.5-1.5 mg/dL GLUCOSE 137 70-99 mg/dL H CALCIUM 8.2 8.4-10.3 mg/dL L EGFR 84 >59 mL/min/1.73m2 Estimat ed glomerular filtration rate calculated using the CKD-EPI refit equation. ANION GAP 15 10-20 mmol/L Magnesium Reviewed date:11/20/2024 04:58:41 PM Interpretation: Performing Lab: Notes/Report: MAGNESIUM 1.9 1.6-2.6 mg/dL Phosphorus Reviewed date:11/20/2024 04:58:37 PM Interpretation: Performing Lab: Notes/Report: PHOSPHORUS 2.8 2.7-4.5 mg/dL CBC Reviewed date:11/22/2024 08:34:35 AM Interpretation: Performing Lab: Notes/Report: WBC 8.82 4.00-11.00 K/uL RBC 3.81 4.00-5.20 M/uL L HGB 12.3 12.0-16.0 g/dL HCT 36.2 36.0-46.0 % MCV 95.0 80.0-100.0 fL MCH 32.3 27.0-31.0 pg H MCHC 34.0 32.0-36.0 g/dL RDW 12.8 11.5-14.5 % MPV 9.9 8.4-12.0 fL PLT 207 150-450 K/uL NRBC 0.00 0.00 /100 WBCs ABSOLUTE NRBC 0.00 0.00 K/uL BASIC METABOLIC PANEL Reviewed date:11/22/2024 08:34:32 AM Interpretation: Performing Lab: Notes/Report: SODIUM 141 133-146 mmol/L CHLORIDE 104 96-108 mmol/L POTASSIUM 3.3 3.3-5.1 mmol/L CO2 26 21-35 mmol/L BUN 17 6-19 mg/dL CREATININE 0.50 0.5-1.5 mg/dL GLUCOSE 104 70-99 mg/dL H CALCIUM 8.2 8.4-10.3 mg/dL L EGFR 91 >59 mL/min/1.73m2 Estimat ed glomerular filtration rate calculated using the CKD-EPI refit equation. ANION GAP 14 10-20 mmol/L CBC Reviewed date:11/22/2024 08:34:30 AM Interpretation: Performing Lab: Notes/Report: WBC 7.36 4.00-11.00 K/uL RBC 3.77 4.00-5.20 M/uL L HGB 12.3 12.0-16.0 g/dL HCT 36.7 36.0-46.0 % MCV 97.3 80.0-100.0 fL MCH 32.6 27.0-31.0 pg H MCHC 33.5 32.0-36.0 g/dL RDW 12.6 11.5-14.5 % MPV 9.6 8.4-12.0 fL PLT 220 150-450 K/uL NRBC 0.00 0.00 /100 WBCs ABSOLUTE NRBC 0.00 0.00 K/uL CBC Reviewed date:11/23/2024 09:51:13 AM Interpretation: Performing Lab: Notes/Report: WBC 7.96 4.00-11.00 K/uL RBC 4.16 4.00-5.20 M/uL HGB 13.5 12.0-16.0 g/dL HCT 39.8 36.0-46.0 % MCV 95.7 80.0-100.0 fL MCH 32.5 27.0-31.0 pg H MCHC 33.9 32.0-36.0 g/dL RDW 12.2 11.5-14.5 % MPV 10.0 8.4-12.0 fL PLT 266 150-450 K/uL NRBC 0.00 0.00 /100 WBCs ABSOLUTE NRBC 0.00 0.00 K/uL BASIC METABOLIC PANEL Reviewed date:11/23/2024 09:51:08 AM Interpretation: Performing Lab: Notes/Report: SODIUM 137 133-146 mmol/L CHLORIDE 102 96-108 mmol/L POTASSIUM 3.5 3.3-5.1 mmol/L CO2 27 21-35 mmol/L BUN 11 6-19 mg/dL CREATININE 0.50 0.5-1.5 mg/dL GLUCOSE 113 70-99 mg/dL H CALCIUM 8.2 8.4-10.3 mg/dL L EGFR 91 >59 mL/min/1.73m2 Estimat ed glomerular filtration rate calculated using the CKD-EPI refit equation. ANION GAP 12 10-20 mmol/L Magnesium Reviewed date:11/23/2024 09:51:05 AM Interpretation: Performing Lab: Notes/Report: MAGNESIUM 1.9 1.6-2.6 mg/dL BASIC METABOLIC PANEL Reviewed date:11/17/2024 08:57:58 AM Interpretation: Performing Lab: Notes/Report: SODIUM 143 133-146 mmol/L CHLORIDE 105 96-108 mmol/L POTASSIUM 3.4 3.3-5.1 mmol/L CO2 28 21-35 mmol/L BUN 10 6-19 mg/dL CREATININE 0.50 0.5-1.5 mg/dL GLUCOSE 127 70-99 mg/dL H CALCIUM 8.6 8.4-10.3 mg/dL EGFR 91 >59 mL/min/1.73m2 Estimat ed glomerular filtration rate calculated using the CKD-EPI refit equation. ANION GAP 13 10-20 mmol/L URINE CULTURE (395 NOHO) Reviewed date:08/29/2024 08:23:29 PM Interpretation: Performing Lab:NL2, Social [facility] Step [facility] [address] [place], [place] [id number] Ana Saldaña Notes/Report: Received Date: NON-FASTING FASTING:UNKNOWN FASTING: UNKNOWN CULTURE, URINE, ROUTINE SEE NOTE A CULTURE, URINE, ROUTINE Micro Number: [id number] Test Status: Final Specimen Source: Urine Specimen Quality: Adequate Result: Greater than 100,000 CFU/mL of Morganella morganii COMMENT: Additional non-predominating organism(s) isolated. These organisms, commonly found on external and internal genitalia, are considered colonizers. No further testing performed. M.morganii INT VIVI AMOX/CLAVULANATE R >=32 AMP/SULBACTAM R >=32 CEFAZOLIN R >=64 1 CEFTAZIDIME S 2 CIPROFLOXACIN S <=0.06 GENTAMICIN S <=1 LEVOFLOXACIN S <=0.12 MEROPENEM S 0.5 NITROFURANTOIN R 256 PIP/TAZOBACTAM S <=4 TRIMETHOPRIM/SULFA S <=20 S = Susceptible I = Intermediate R = Resistant NS = Not susceptible SDD = Susceptible Dose Dependent * = Not Tested NR = Not Reported NN = See Therapy Comments THERAPY COMMENTS Note 1: For uncomplicated UTI caused by E. coli, K. pneumoniae or P. mirabilis: Cefazolin is susceptible if VIVI <32 mcg/mL and predicts susceptible to the oral agents cefaclor, cefdinir, cefpodoxime, cefprozil, cefuroxime, cephalexin and loracarbef. TSH Reviewed date:05/25/2025 09:04:04 PM Interpretation: Performing Lab:NL2, Social 2 Step [facility] [id number] Ana Saldaña Notes/Report: Received Date: NON-FASTING; NON-FASTING; NON-FASTING; NON-FASTING; NON-FAST TSH 4.38 0.40-4.50 mIU/L N CT CERVICAL SPINE WITHOUT CO NTRAST Reviewed date:10/06/2024 05:43:30 PM Interpretation: Performing Lab: Notes/Report: CT HEAD WITHOUT CONTRAST, CT CERVICAL SPINE WITHOUT CONTRAST Referring clinician's provided indication for this examination in Epic: * Head trauma, minor (Age >= 65y); Pain reported in bilateral hips s/p fall, ful ROM and no deformities TECHNIQUE: CTs of the head and cervical spine were performed without intravenous contrast using tailored dose modulation techniques. Images were reconstructed in the axial, coronal, and sagittal planes. COMPARISON: None FINDINGS: HEAD: Brain Parenchyma: No midline shift, mass effect, parenchymal hemorrhage, or evidence of acute territorial infarct. Hypodensities in the periventricular white matter, likely a manifestation of chronic small vessel disease. There is a chronic appearing right MCA territory infarct. Ventricular System and Extra-Axial Spaces: The ventricles and sulci are prominent. No extra-axial fluid collections. Basilar cisterns are patent. No hydrocephalus. There is a suspected right frontal partially calcified meningioma. Osseous and Extracranial Structures: No calvarial fracture or significant soft tissue hematoma. No significant paranasal sinus disease. No orbital abnormality. CERVICAL SPINE: Alignment and Vertebrae: Alignment is normal. Vertebral bodies and posterior elements are intact. Discs and Endplates: Multilevel degenerative changes. Other Findings: None. IMPRESSION: 1. No acute intracranial findings. 2. Chronic appearing right MCA territory infarct. 3. No acute fracture or traumatic malalignment of the cervical spine. Interpreted by: Annalee Kirkland MD Signed by: Annalee Kirkland MD 10/06/24 Final result Table formatting from the original note was not included. By ambulance from dentist office where she tripped and fell while exiting. Per EMS, pt only wanted lift assistance; but was perceived to have AMS; so she was brought to ED. Family confirmed en route that this is her baseline mentation. Pt c/o right hip and knee discomfort but no obvious deformities. No head strike reported. [facility] CT HEAD WITHOUT CONTRAST Reviewed date:10/06/2024 05:43:26 PM Interpretation: Performing Lab: Notes/Report: CT HEAD WITHOUT CONTRAST, CT CERVICAL SPINE WITHOUT CONTRAST Referring clinician's provided indication for this examination in [facility]: * Head trauma, minor (Age >= 65y); Pain reported in bilateral hips s/p fall, ful ROM and no deformities TECHNIQUE: CTs of the head and cervical spine were performed without intravenous contrast using tailored dose modulation techniques. Images were reconstructed in the axial, coronal, and sagittal planes. COMPARISON: None FINDINGS: HEAD: Brain Parenchyma: No midline shift, mass effect, parenchymal hemorrhage, or evidence of acute territorial infarct. Hypodensities in the periventricular white matter, likely a manifestation of chronic small vessel disease. There is a chronic appearing right MCA territory infarct. Ventricular System and Extra-Axial Spaces: The ventricles and sulci are prominent. No extra-axial fluid collections. Basilar cisterns are patent. No hydrocephalus. There is a suspected right frontal partially calcified meningioma. Osseous and Extracranial Structures: No calvarial fracture or significant soft tissue hematoma. No significant paranasal sinus disease. No orbital abnormality. CERVICAL SPINE: Alignment and Vertebrae: Alignment is normal. Vertebral bodies and posterior elements are intact. Discs and Endplates: Multilevel degenerative changes. Other Findings: None. IMPRESSION: 1. No acute intracranial findings. 2. Chronic appearing right MCA territory infarct. 3. No acute fracture or traumatic malalignment of the cervical spine. Interpreted by: Annalee Kirkland MD Signed by: Annalee Kirkland MD 10/06/24 Final result Table formatting from the original note was not included. By ambulance from dentist office where she tripped and fell while exiting. Per EMS, pt only wanted lift assistance; but was perceived to have AMS; so she was brought to ED. Family confirmed en route that this is her baseline mentation. Pt c/o right hip and knee discomfort but no obvious deformities. No head strike reported. Imaging [facility] - [facility] XR PELVIS 1-2 VIEW Reviewed date:10/06/2024 05:43:15 PM Interpretation: Performing Lab: Notes/Report: XR PELVIS 1-2 VIEW Referring clinician's provided indication for this examination in Epic: S/P Fall; Pain; Pain reported in bilateral hips s/p fall, ful ROM and no deformities COMPARISON: XR PELVIS AP PLUS FROG OR OUTLET 2 VIEWS FINDINGS: Right hip arthroplasty with no hardware fracture or surrounding lucency. No displaced fracture. Intact sacroiliac joints and pubic symphysis. Frontal evaluation of the hips demonstrates joint space narrowing and ossified of the left femoroacetabular joint. Atherosclerotic calcifications. Spinal fusion hardware in the lower lumbar spine. IMPRESSION: No displaced fracture or dislocation. Right hip arthroplasty with no hardware complication. Interpreted by: Angelica Figueroa MD Signed by: Angelica Figueroa MD 10/06/24 Final result Pain reported in bilateral hips s/p fall, ful ROM and no deformities Imaging [facility] ANATOMIC PATHOLOGY Reviewed date:11/23/2024 06:08:42 PM Interpretation: Performing Lab: Notes/Report: POCT GLUCOSE Reviewed date:11/20/2024 05:09:37 PM Interpretation: Performing Lab: Notes/Report: GLUCOSE, POCT 109 70-100 mg/dL H XR HIP WITH PELVIS (LEFT) 2 - 3 VIEWS Reviewed date:11/20/2024 05:09:33 PM Interpretation: Performing Lab: Notes/Report: XR HIP 2 VW LEFT PLUS PELVIS 11/19/2024 3:02 PM Referring clinician's provided indication for this examination in Epic: S/P Joint Replacement COMPARISON: Pelvis/left hip radiographs 11/17/2024 IMPRESSION: FINDINGS/IMPRESSION: There are interval sequela of left hip hemiarthroplasty without evidence of hardware complication. There is expected overlying postoperative soft tissue air. There are partially visualized sequela of right total hip arthroplasty and lower lumbar posterior fusion. There is no evidence of new fracture, subluxation, or dislocation. There is vascular calcification. Interpreted by: Cynthia Frye MD Signed by: Cynthia Frye MD 11/19/24 Final result s/p Joint Replacement [facility] Reason For Referral Reason home PT Diagnosis 1 Gait abnormality (R2 6.9) Diagnosis 2 Muscle weakness (gen eralized) (M62.81) Diagnosis 3 Parkinson's disease with dyskinesia, with fluctuations (G20.B2) Referral Organization [facility] actice Referring Provider First Name Nahed Referring Provider Last Name Rachel Referring Provider Speciality Family Pra ctice Referred Provider [facility] Referred Provider Specialty Home Care General Notes Anya Mercedes 09/25 12:23:37 PM >, Anya Mercedes 10/14/2024 09:45:07 AM > referral faxed to: [phone] Clinical Notes Provider Name: [facility], Provider ID Number: , Provider UPIN: , Provider , Provider Facility: , Provider Speciality: Home Care, Address1: [address] [place] [address] , Address2: [facility] NPI- [id number], [facility], Zip: [place], [address], , Appt. Date/Time: , Referral Priority Routine Medications Medication SIG (Take, Route, Frequency, Duration) Notes Start Date End Date Status Multivitamin - Tablet 1 tablet Orally Once a day Active Synthroid 112 MCG Tablet 1 tab(s) orally once a day; Duration: 90 days Active Senna 8.6 MG Tablet 2 tablets at bedtime Orally Once a day at night Active Nystatin 051230 UNIT/GM Powder 1 tye applied topically 3 times a day; Duration: 30 days 08/04/2023 Active Tylenol Extra Strength 500 MG Tablet 2 tabsthree times dailyprn Active Magnesium Glycinate 100 MG Capsule 1 PO QD Active Miconazole Nitrate 2 % Cream 1 tye applied topically 2 times a day prn Active Eliquis 5 MG Tablet TAKE 1 TABLET BY MOUTH TWICE A DAY; Duration: 90 days Active Magnesium Malate 1250 (141.7 Mg) MG Tablet as directed Orally Active Vitamin D3 25 MCG (1000 UT) Tablet 1 cap(s) PO once a day Active Dorzolamide HCl 2 % Solution 1 drop into affected eye Ophthalmic Three times a day Active MiraLax Mix-In [place] 17 GM Packet 1/2 packet mixed with 8 ounces of fluid Orally Once a day; Duration: 30 days 1/2 a packet daily in AM 09/20/2024 Active Timolol Maleate 0.5 % Solution 1 drop into affected eye Ophthalmic Once a day Active Effexor XR 37.5 MG Capsule Extended Release 24 Hour 1 cap(s) orally once a day; Duration: 30 days Active Cosopt 2.23%-0.68% SOLUTION 1 GTT IN R EYE 2 TIMES A DAY Not-Taking/PRN REFRESH PM - OINTMENT 1 TYE IN EACH EYE RIGHT EYE AT PM Active Fish Oil 1 QD Unknown Artificial Tears Act andrés AFO BRACE LEFT DX: M21.372 DIRECTED FOR L FOOT DROP; Duration: FOR USE DAILY 05/22/2018 Unknown Sinemet 25-100 MG Tablet 2.5 tab(s) orally 3 times a day 2, then 2 1/2, then 2 Active Immunizations Vaccine Route Administration Date Status Comme nts COVID HISTORY SPIKEVAX 12+ MODERNA Unknown 06/15/2024 Administered COVID Vacc BIVALENT 12+ Pfizer IM Intramuscular 05/10/2022 Administered COVID Vacc BIVALENT 12+ Pfizer IM Intramuscular 01/15/2023 Administered Covid Vaccine Booster (Pfizer), History Unknown 06/18/2021 Administered COVID-19 Vaccine (Moderna), History Unknown 07/15/2023 Administered COVID-19 Vaccine (Pfizer), History Unknown 09/11/2020 Administered COVID-19 Vaccine (Pfizer), History Unknown 10/02/2020 Administered Flu Vaccine; History Unknown 06/06/2020 Administered Flu Vaccine; History Unknown 05/19/2024 Administered FLUZONE HIGH DOSE 65+ PURCHASED IM Intramuscular 04/20/2018 Administered FLUZONE HIGH DOSE 65+ PURCHASED IM Intramuscular 06/10/2019 Administered FLUZONE HIGH DOSE 65+ PURCHASED IM Intramuscular 05/10/2022 Administered FLUZONE HIGH DOSE 65+ PURCHASED IM Intramuscular 05/08/2023 Administered Fluzone High-Dose IM Intramuscular 05/06/2016 Pending Fluzone High-Dose IM Intramuscular 04/21/2017 Administered Hep A Vaccine; History Unknown 01/30/2001 Administered PNEUMOVAX 23 PURCHASED IM Intramuscular 07/24/2017 Adminis tered pneumovax vaccine history Unknown 05/30/2000 Administer ed Prevnar 13 History Unknown 07/17/2015 Administered PREVNAR 20 PURCHASED IM Intramuscular 05/25/2025 Administe red Shingrix, history Unknown 12/28/2018 Administered Shingrix, history Unknown 07/29/2019 Administered Td vaccine history Unknown 08/30/2010 Administered TDAP >7 PURCHASED (ADACEL) IM Intramuscular 01/14/2024 Adm inistered Social History Tobacco Use: Social History Observation Description Date Details (start date - stop date) Never Smoker NA - NA Social History Social History Social Info Question Answer Notes Smoking Smart Form: Are you a: nonsmoker Additional Details Category Social Info Options Details Social History Occupation: Retired, was in [employer] in 1961 Alcohol: no alcohol Exercise: not much, walks and the PT exercises Caffeine: None Marital Status: Adriana Chiang Children: none Pets: Dogs:1- dog 2020 Pentecostal: Phillip lives lives in an inde pendent living apartment in [place] Ed: MA Section Notes: Pt good friends w/ Mag Perki ns and Marly (pt's here) Pt good friends w/ Mag Perki ns and Marly (pt's here) Pt good friends w/ Mag Perki ns and Marly (pt's here) Pt good friends w/ Mag Perki ns and Marly (pt's here) Pt good friends w/ Mag Perki ns and Marly (pt's here) Pt good friends w/ Mag Perki ns and Marly (pt's here) Pt good friends w/ Mag Perki ns and Marly (pt's here) Pt good friends w/ Mag Perki ns and Marly (pt's here) Pt good friends w/ Mag Perki ns and Marly (pt's here) Pt good friends w/ Mag Perki ns and Marly (pt's here) Pt good friends w/ Mag Perki ns and Marly (pt's here) Pt good friends w/ Mag Perki ns and Marly (pt's here) Pt good friends w/ Mag Perki ns and Marly (pt's here) Pt good friends w/ Mag Abbott and Marly (pt's here) rent a daughter Rosalina Pt good friends w/ Mag Abbott and Marly (pt's here) rent a daughter Rosalina Pt good friends w/ Mag Abbott and Marly (pt's here) rent a daughter Rosalina Pt good friends w/ Mag Abbott and Marly (pt's here) rent a daughter Rosalina eldercare access, w nurse Keen is her support person--[phone] Pt good friends w/ Mag Perki ns and Marly (pt's here) Pt good friends w/ Mag Perki ns and Marly (pt's here) Pt good friends w/ Mag Abbott and Marly (pt's here) lives in [facility] lives in [facility] [phone], cell is [phone]. HCP Invoked--06/2023([facility]) HCP backup is Roger Lit [phone] rent a daughter Rosalina lives locally [phone] is local Pt good friends w/ Mag Milena and Marly (pt's here) lives in [facility] lives in [facility] [phone], cell is [phone]. 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 is hcp Pt good friends w/ Mag Abbott and Marly (pt's here) rent a daughter Rosalina Pt good friends w/ Mag Abbott and Marly (pt's here) rent a daughter Rosalina Pt good friends w/ Mag Perki ns and Marly (pt's here) Pt good friends w/ Mag Abbott and Marly (pt's here) rent a daughter Rosalina Pt good friends w/ Mag Perki ns and Marly (pt's here) Pt good friends w/ Mag Perki ns and Marly (pt's here) Pt good friends w/ Mag Perki ns and Marly (pt's here) Pt good friends w/ Mag Perki ns and Marly (pt's here) Pt good friends w/ Mag Perki ns and Marly (pt's here) Pt good friends w/ Mag Perki ns and Marly (pt's here) Pt good friends w/ Mag Perki ns and Marly (pt's here) Pt good friends w/ Mag Perki ns and Marly (pt's here) Pt good friends w/ Mag Perki ns and Marly (pt's here) Pt good friends w/ Mag Perki ns and Marly (pt's here) Pt good friends w/ Mag Perki ns and Marly (pt's here) Pt good friends w/ Mag Perki ns and Marly (pt's here) Pt good friends w/ Mag Perki ns and Marly (pt's here) Pt good friends w/ Mag Perki ns and Marly (pt's here) Pt good friends w/ Mag Perki ns and Marly (pt's here) Pt good friends w/ Amg Perki ns and Marly (pt's here) Pt good friends w/ Mag Perki ns and Marly (pt's here) Pt good friends w/ Mag Perki ns and Marly (pt's here) Pt good friends w/ Mag Perki ns and Marly (pt's here) Pt good friends w/ Mag Perki ns and Marly (pt's here) Pt good friends w/ Mag Perki ns and Marly (pt's here) Pt good friends w/ Mag Perki ns and Marly (pt's here) Pt good friends w/ Mag Perki ns and Marly (pt's here) Pt good friends w/ Mag Perki ns and Marly (pt's here) Pt good friends w/ Mag Perki ns and Marly (pt's here) Pt good friends w/ Mag Perki ns and Marly (pt's here) Pt good friends w/ Mag Perki ns and Marly (pt's here) Pt good friends w/ Mag Perki ns and Marly (pt's here) Pt good friends w/ Mag Perki ns and Marly (pt's here) Pt good friends w/ Mag Perki ns and Marly (pt's here) Pt good friends w/ Mag Perki ns and Marly (pt's here) Pt good friends w/ Mag Perki ns and Marly (pt's here) Pt good friends w/ Mag Perki ns and Marly (pt's here) Pt good friends w/ Mag Perki ns and Marly (pt's here) Pt good friends w/ Mag Perki ns and Marly (pt's here) Pt good friends w/ Mag Perki ns and Marly (pt's here) Pt good friends w/ Mag Perki ns and Marly (pt's here) Pt good friends w/ Mag Perki ns and Marly (pt's here) Pt good friends w/ Mag Perki ns and Marly (pt's here) Pt good friends w/ Mag Perki ns and Marly (pt's here) Pt good friends w/ Mag Perki ns and Marly (pt's here) Pt good friends w/ Mag Perki ns and Marly (pt's here) Pt good friends w/ Mag Perki ns and Marly (pt's here) Pt good friends w/ Mag Perki ns and Marly (pt's here) Pt good friends w/ Mag Perki ns and Marly (pt's here) Pt good friends w/ Mag Perki ns and Marly (pt's here) Pt good friends w/ Mag Perki ns and Marly (pt's here) Pt good friends w/ Mag Perki ns and Marly (pt's here) Pt good friends w/ Mag Perki ns and Marly (pt's here) Pt good friends w/ Mag Perki ns and Marly (pt's here) Pt good friends w/ Mag Perki ns and Marly (pt's here) Pt good friends w/ Mag Perki ns and Marly (pt's here) Pt good friends w/ Mag Perki ns and Marly (pt's here) Pt good friends w/ Mag Perki ns and Marly (pt's here) Pt good friends w/ Mag Perki ns and Marly (pt's here) Pt good friends w/ Mag Perki ns and Marly (pt's here) Pt good friends w/ Mag Perki ns and Marly (pt's here) Pt good friends w/ Mag Perki ns and Marly (pt's here) Pt good friends w/ Mag Perki ns and Marly (pt's here) Pt good friends w/ Mag Perki ns and Marly (pt's here) Pt good friends w/ Mag Perki ns and Marly (pt's here) Pt good friends w/ Mag Perki ns and Marly (pt's here) Pt good friends w/ Mag Perki ns and Marly (pt's here) Pt good friends w/ Mag Perki ns and Marly (pt's here) Pt good friends w/ Mag Perki ns and Marly (pt's here) Pt good friends w/ Mag Perki ns and Marly (pt's here) Pt good friends w/ Mag Perki ns and Marly (pt's here) Pt good friends w/ Mag Perki ns and Marly (pt's here) Pt good friends w/ Mag Abbott and Marly (pt's here) rent a daughter Rosalina [facility] w nurse Leonila is her support person--[phone]) cell is [phone] 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 HCP Invoked- 06/2023([facility]) HCP backup is Roger [place] [phone] rent a daughter Rosalina lives locally [phone] is local Problems Problem Type SNOMED Code ICD Code Onset Dates Problem Status W/U Status Risk Notes Problem Hypothyroidism (95333194) Hypothyroidism (E03.9) Active confirmed Problem Muscle weakness (18918383) Muscle weakness (generalized) (M62.81) Active confirmed Problem Constipation (13890266) Constipation, unspecified (K59.00) Active confirmed Problem Body mass index 30.00 to 34.99 (059532346621230) BMI 34.0-34.9, adult (Z68.34) Active confirmed Problem Parkinson's disease (73790438) Parkinson's disease (G20) Active confirmed Problem Obstructive sleep apnea syndrome (04793017) RUDOLPH (G47.33) Active confirmed Problem Glaucoma (42941847) Glaucoma, unspecified (H40.9) Active confirmed Problem Sensorineural hearing loss (31308915) Hearing loss Unspecified (H90.5) Active confirmed Problem Hearing loss (48560870) Unspecified hearing loss, bilateral (H91.93) Active confirmed Problem Localized, 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, right, primary (M19.011) Active confirmed Problem Left foot drop (874129540555936) Foot drop, left foot (M21.372) Active confirmed Problem Spinal stenosis of lumbar region (14749796) Spinal stenosis, lumbosacral region (M48.07) Active confirmed Problem Gait abnormality (36355462) Gait abnormality (R26.9) Active confirmed Problem 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) BMI 35.0-35.9, adult (Z68.35) Active confirmed Problem Atrial fibrillation (47320719) AFib, unspecified (I48.91) Active confirmed Problem Hyperlipidemia (62624267) Hyperlipidemia unspecified (E78.5) Active confirmed Problem Urinary incontinence (921391749) Urinary incontinence, unspecified (R32) Active confirmed Problem Osteoporosis (24410941) Osteoporosis NOS (M81.0) Active confirmed Problem Memory loss (57038393) Memory loss (R41.3) Active confirmed Problem Urinary incontinence (456527823) Incontinence urinary (R32) Active confirmed Problem Parkinson's disease with dyskinesia, with fluctuations (G20.B2) Active confirmed Vital Signs Temperature 97.1 degrees Fahrenheit 05/25/2025 unab le to weigh due to fear w transfers. Oximetry 98 05/25/2025 unable to weigh due to fear w transfers. Blood pressure diastolic 70 mm Hg 05/25/2025 nadeen ble to weigh due to fear w transfers. Blood pressure systolic 124 mm Hg 05/25/2025 unab le to weigh due to fear w transfers. Weight 210.0 lbs 08/16/2024 Encounters Encounter Location Date Provider Diagnosis [place] [address] [place] [address] 05/20/2025 Nahed Ramos [facility] [address] [place] [address] 05/25/2025 Nahed Ramos [facility] [address] [place] [address] 05/27/2025 Nahed Ramos [facility] [address] [place] [address] 06/03/2024 Nahed Ramos [facility] [address] [place] [address] 06/03/2024 Caroline Shepherd [facility] [address] [place] [address] 06/14/2024 Nahed Ramos [facility] [address] [place] [address] 07/28/2024 Nahed Ramos [facility] [address] [place] [address] 08/29/2024 Nahed Ramos UTI N39.0 [place] [address] [place] [address] 08/30/2024 Nahed Ramos [facility] [address] [place] [address] 09/07/2024 Nahed Ramos Constipation, unspecified K59.00 [facility] [address] [place] [address] 10/07/2024 Nahed Ramos [facility] [address] [place] [address] 10/15/2024 Nahed Ramos [facility] [address] [place] [address] 10/19/2024 Nahed Ramos [facility] [address] [place] [address] 11/01/2024 Nahed Ramos [facility] [address] [place] [address] 11/01/2024 Nahed Ramos [facility] [address] [place] [address] 11/11/2024 Nahed [facility] [address] [place] [address] 11/15/2024 Nahed [facility] [address] [place] [address] 11/19/2024 Nahed [facility] [address] [place] [address] 11/20/2024 Nahed [facility] [address] [place] [address] 12/06/2024 Nahed [facility] [address] [place] [address] 12/07/2024 Nahed [facility] [address] [place] [address] 12/10/2024 Nahed [facility] [address] [place] [address] [facility] [address] [place] [address] 01/20/2025 Nahed [facility] [address] [place] [address] 03/08/2025 Nahed [facility] [address] [place] [address] 03/08/2025 Nahed [facility] [address] [place] [address] 03/08/2025 Nahed [facility] [address] [place] [address] 03/08/2025 Nahed [facility] [address] [place] [address] 05/12/2025 Nahed Ramos Lolis intertrigo B37.[address] [facility] [address] [place] [address] 08/17/2024 Nahedblanche Ramos Incontinence urinary R32 [facility] [address] [place] [address] 07/28/2024 Nahedblanche Ramos No Show or Late Cancel NS.LTCX [facility] [address] [place] [address] 08/16/2024 Nahed Burkkinson Parkinson's disease with dyskinesia, with fluctuations G20.B2 ; BMI 34.0-34.9, adult Z68.34 ; Constipation, unspecified K59.00 ; Muscle weakness (generalized) M62.81 ; Gait abnormality R26.9 ; Osteoporosis NOS M81.0 ; AFib, unspecified I48.91 and Urinary incontinence, unspecified R32 [address] [address] 12/08/2024 Nahed Ramos No Show or Late Cancel NS.LTCX [address] [address] 12/27/2024 Nahed Burkkinson Parkinson's disease with dyskinesia, with fluctuations G20.B2 ; Unspecified fracture of left femur, initial encounter for closed fracture S72.92XA ; Muscle weakness (generalized) M62.81 ; Hypothyroidism E03.9 and RUDOLPH G47.[address] [address] 05/25/2025 Nahed Burkkinson Adult physical NORMAL Z00.00 ; Parkinson's disease with dyskinesia, with fluctuations G20.B2 ; Osteoporosis NOS M81.0 ; AFib, unspecified I48.91 and Encounter for immunization Z23 [facility] [address] [place] [address] 05/27/2025 Nahed Ramos [facility] [address] [place] [address] 05/12/2025 Nahed Ramos Assessments Encounter Date Diagnosis (ICD Code) Assessment Notes Treatment Notes Treatment Clinical Notes Section Notes 09/07/2024 Constipation, unspecified (ICD-10 - K59.00) 05/12/2025 Lolis intertrigo (ICD-10 - B37.2) 08/29/2024 UTI (ICD-10 - N39.0) call to ethan . left message w Roger that i am calling in an antibiotic . dw Adriana. no interaction w her meds. 07/28/2024 No Show or Late Cancel (ICD-10 - NS.LTCX) 08/16/2024 BMI 34.0-34.9, adult (ICD-10 - Z68.34) 08/16/2024 Parkinson's disease with dyskinesia, with fluctuations (ICD-10 - G20.B2) 12/08/2024 No Show or Late Cancel (ICD-10 - NS.LTCX) 12/27/2024 Unspecified fracture of left femur, initial encounter for closed fracture (ICD-10 - S72.92XA) 12/27/2024 Parkinson's disease with dyskinesia, with fluctuations (ICD-10 - G20.B2) met w nurse manager camp and patient dirctly also review of hospital paperwork and plan of care total time spent 42 minutes 08/17/2024 Incontinence urinary (ICD-10 - R32) 05/25/2025 Adult physical NORMAL (ICD-10 - Z00.00) 05/25/2025 Parkinson's disease with dyskinesia, with fluctuations (ICD-10 - G20.B2) 05/25/2025 Osteoporosis NOS (ICD-10 - M81.0) 12/27/2024 Muscle weakness (generalized) (ICD-10 - M62.81) 08/16/2024 Constipation, unspecified (ICD-10 - K59.00) 08/16/2024 Muscle weakness (generalized) (ICD-10 - M62.81) 12/27/2024 Hypothyroidism (ICD-10 - E03.9) 05/25/2025 AFib, unspecified (ICD-10 - I48.91) 05/25/2025 Encounter for immunization (ICD-10 - Z23) 12/27/2024 RUDOLPH (ICD-10 - G47.33) 08/16/2024 Gait abnormality (ICD-10 - R26.9) 08/16/2024 Osteoporosis NOS (ICD-10 - M81.0) 08/16/2024 AFib, unspecified (ICD-10 - I48.91) 08/16/2024 Urinary incontinence, unspecified (ICD-10 - R32) 08/16/2024 Other 43 minutes total spent w pt, reivewing notes and get letter. making plan and writing notes, conferring w family members etc 12/08/2024 Other Patient's medication as of hospital discharge reconciled today in office. Hospital discharge summary and associated documentation are on file and reviewed in detail. Review the need for diagnostic tests/treatments and/or follow-up on pending diagnostic tests/treatment. Reviewed need for new referrals, community resources, and/or durable medical equipment at this time. Patient education regarding signs/symptoms of worsening illness to report immediately or activate the EMS system provided during office visit. Patient is verbalizing good understanding of the instructions and will follow up as planned. Plan Of Treatment Pending Test Test Name Order Date 06/12/2018 Urine Dip --in house 05/08/2023 X ray : Spines, lumbar 04/17/2018 X ray : Hip, left 04/17/2018 X ray : Hip, right 04/17/2018 X ray : Leg, left 03/20/2018 X ray : Leg, right 03/20/2018 X ray : Pelvis 03/20/2018 Bone density 07/13/2020 Bone density 11/23/2020 ekg 04/22/2019 ekg 02/26/2019 X ray : cervical spine series 06/12/2018 PTT 04/22/2019 hearing evaluation 11/02/2020 X ray : Lumbar spine 01/14/2019 pt/inr 07/26/2016 pt/inr 07/24/2017 X ray : Shoulder, Right 01/02/2022 X ray : Lumbosacral Spine 03/20/2018 FREE T3 05/06/2016 FREE T3 09/28/2018 FERRITIN 05/06/2016 FOLIC ACID 05/06/2016 FOLIC ACID 05/02/2022 IRON & TIBC 05/06/2016 VITAMIN B12 05/02/2022 VITAMIN B12 05/06/2016 HSCRP 05/06/2016 COMPREHENSIVE METABOLIC PANL 05/02/2022 COMPREHENSIVE METABOLIC PANL 05/06/2016 LIPID PANEL 05/02/2022 LIPID PANEL 05/06/2016 HOMOCYSTEINE,PLASMA/SERUM 05/06/2016 TSH WITH REFLEX TO T4 12/03/2018 TSH 09/05/2023 TSH 05/06/2016 TSH 09/28/2018 Vitamin D25 [place] 05/06/2016 FREE T4 09/28/2018 FREE T4 05/06/2016 REVERSE T3 05/06/2016 REVERSE T3 09/28/2018 CBC AUTO DIFF 05/06/2016 INR 07/25/2017 URINALYSIS, COMPLETE 08/04/2023 X Ray : Coccyx and Sacrum 01/14/2019 pharmacological nuclear stress test 12/2018 VITAMIN B6, PLASMA 05/25/2025 Home Sleep Study 04/26/2021 1-25-OH vitamin D 04/06/2024 MRI LUMBAR SACRAL WITHOUT CONTRAST 01/05 DEXA Bone density 08/04/2023 Next Appt Details Provider Name:Nahed shafer, 07/29/2025 09:00:00 AM, [address], [place], [address], Provider Name:Nahed shafer, 11/23/2025 11:30:00 AM, [address] [place], [address], Insurance Providers Payer Name Payer Address Payer Phone Subscriber Number Group Number Insured Name Patient Relationship to Insured Coverage Start Date Coverage End Date MEDICARE [address] [place] [phone] [id number] PIERRE LEES Self - patient is the insured 3 [facility] MCR SUPPLEMENT [facility] CLAIM DIVISION [address] [place] [address] [id number] PIERRE LEES Self - patient is the insured Medical (General) History Medical History History ICD Code Parkinson's disease- dx'd in 2012 Dr Tj padilla at [facility]- no longer goes to cardiology DDT exposure when in [place] [employer] 1960s hypothyroid glaucoma, 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 Solis 9 [facility] ER to [facility] for weak gait 10/30/23-01/15 Tooth extraction 07/2024 [facility], L hip fracture 11/2024 Hospitalization History Reason Date(Month/Year) [facility]- fall, L hip fracture 11/2024 [facility]-3 night stay 05/07/2019
--- OUTSIDE RECORDS SUMMARY | 2025-05-30 16:27 | XMS_ITS | Encounter Summary ---
Author Organization [facility] Address [address] [place] [phone] Phone Care Team Providers Care Space Systems Operations Superintendent Name Role Phone Nahed Ramos MD Primary Care Provider + Cha Álvarez MD Unavailable [phone] Cha Álvarez MD Unavailable [phone] Encounter Details Date Type Department Care Team (Late st Contact Info) Description 11/24/2020 Ancillary Orders Virtual Department [address] [place] [address] Caroline Shepherd PA [address] [place] [address] [phone] [email or web address] Asymptomatic premature menopause Social History Tobacco Use Types Packs/Day Years [...] Description 01/11/2026 1:30 PM EDT Office Visit [facility] & Sports Medicine [address] [place] [address] [place] [address] Mina Ceballos MD [address] [place] [address] Orthopedics & Sports Medicine, [facility] [place] [address] [email or web address] documented as of this encounter Results * BD DXA AXIAL (SPINE) WITH HIP (12/15/2020 1:09 PM EDT) Anatomical Region Laterality Modality Bone Density Bone Density 12/15/2020 1:18 PM EDT Narrative 12/15/2020 2:05 PM EDT This is a 84-year with provided clinical history to evaluate for bone density. No perceived loss of height. Menopause age: 54. The lumbar spine demonstrates surgical metallic artifact arising from L4 and L5 vertebra status post posterior fusion. For this reason only L1 and L2 vertebral bodies are included and evaluation appears to be technically adequate. Evaluation of the left hip was performed. Right proximal femur evaluation was not performed. Patient reports right THR. Total bone mineral density in the L1 and L2 vertebral bodies was calculated at 1.051 gm/cm2 with a T score of 0.7. This falls within the WHO classification of normal. Total bone mineral density in the left proximal femur was calculated at 0.725 gm/cm2 with a T-score of -1.8 falling within the WHO classification of osteopenia. gm/cm2 with a T-score of -2.3. FRAX: WHO Fracture Risk Assessment 10 year fracture risk Major Osteoporotic Fracture: 15% . Hip Fracture: 5% . CONCLUSION: L1-L2 vertebral body BMD: Normal. Left proximal femur BMD: Osteopenia. Procedure Note Abram Graham MD - 12/15/2020 This is a 84-year with provided clinical history to evaluate for bonedensity. No perceived loss of height. Menopause age: 54. The lumbar spine demonstrates surgical metallic artifact arising from L4and L5 vertebra status post posterior fusion. For this reason only L1 andL2 vertebral bodies are included and evaluation appears to be technicallyadequate. Evaluation of the left hip was performed. Right proximal femurevaluation was not performed. Patient reports right THR. Total bone mineral density in the L1 and L2 vertebral bodies wascalculated at 1.051 gm/cm2 with a T score of 0.7. This falls within theWHO classification of normal. Total bone mineral density in the left proximal femur was calculated at0.725 gm/cm2 with a T-score of -1.8 falling within the WHO classificationof osteopenia. gm/cm2 with a T-score of -2.3. FRAX: WHO Fracture Risk Assessment 10 year fracture risk Major Osteoporotic Fracture: 15% . Hip Fracture: 5% . CONCLUSION: L1-L2 vertebral body BMD: Normal. Left proximal femur BMD: Osteopenia. 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 It is not the complete legal health record.[facility]
--- OUTSIDE RECORDS SUMMARY | 2025-05-30 16:27 | XMS_ITS | Encounter Summary ---
Author Organization [facility] Address [address] [address] Phone Care Team Providers Care Prevention Specialist Name Role Phone Nahed Ramos MD Primary Care Provider + Cha Álvarez MD Unavailable [phone] Cha Álvarez MD Unavailable [phone] Encounter Details Date Type Department Care Team (Late st Contact Info) Description 05/17/2019 Transcribe Orders [facility] Specimen Processing [address] [place] [address] Daniel Hernandez MD [address] [facility] [address] [place] [address] [email or web address] Wound drainage (Primary Dx) Social History Tobacco Use Types Packs/Day Years [...] Description 01/11/2026 1:30 PM EDT Office Visit [facility] Orthopedics & Sports Medicine [address] [place] [address] [place] [address] Mina Ceballos MD [address] [place] [address] Orthopedics & Sports Medicine, [facility] [place] [address] documented as of this encounter Procedures Procedure Name Priority Date/Time Associated Diagnosis Comments WOUND CULTURE/SMEAR Routine 05/16/2019 5 :48 AM EDT Wound drainage documented in this encounter Results * (ABNORMAL) Wound culture/smear (05/16/2019 5:48 AM EDT) Special Requests None 05/17/2019 9:11 AM EDT [facility] GRAM STAIN Moderate GRAM POSITIVE COCCI 05/18/2019 11:02 AM EDT [facility] Wound Culture/Smear Many STAPHYLOCOCCUS AUREUS(A) 05/20/2019 8:58 AM EDT [facility] Wound Culture/Smear Few MIXED ORGANISMS RESEMBLING CUTANEOUS STEVIE(A) 05/20/2019 8:58 AM EDT [facility] Other (Wound) 05/16/2019 5:4 8 AM EDT 05/17/2019 10:24 AM EDT Narrative Organism Antibiotic Method Susceptibility Staphylococcus aureus Penicillin G VIVI METHOD 0.12: Resistant Staphylococcus aureus Clindamycin VIVI METHOD <=0.25: Susceptible Staphylococcus aureus Erythromycin VIVI METHOD <=0.25: Susceptible Staphylococcus aureus Gentamicin VIVI METHOD <=0.5: Susceptible Staphylococcus aureus inducible clindamycin VIVI METHOD Negative Staphylococcus aureus Levofloxacin VIVI METHOD <=0.12: Susceptible Staphylococcus aureus Oxacillin(methicillin) VIVI METHO D 0.5: Susceptible Staphylococcus aureus quinupristin/dalfopri VIVI METHOD <=0.25: Susceptible Staphylococcus aureus Rifampin VIVI METHOD <=0.5: Susceptible Staphylococcus aureus Tetracycline VIVI METHOD <=1: Susceptible Staphylococcus aureus Trimethoprim/sulfamethoxazole OK C METHOD <=10: Susceptible Staphylococcus aureus Vancomycin VIVI METHOD <=0.5: Susceptible Staphylococcus aureus Cefoxitin VIVI METHOD Negative us Daniel Hernandez MD MICROBIOLOGY - GENERAL ORDERABLE S Final Result [address] [address] documented in this encounter Visit Diagnoses Diagnosis Wound drainage- Primary documented in this encounter Care Teams Prevention Specialist Relationship Specialty Start Date End Date Nahed Ramos MD [address] [place] [phone] [email or web address] PCP - General Family Medicine 04/21/18 Cha Álvarez MD [address] [place] [phone] [email or web address] Consulting Provider Geriatric Medicine 12/29/20 Cha Álvarez MD [address] [place] [phone] [email or web address] Geriatric Medicine 06/28/24 documented as of this encounter Additional Source Comments The information contained in this document represents components of the legal health record. It is not the complete legal health record.[facility]
--- OUTSIDE RECORDS SUMMARY | 2025-05-30 16:27 | XMS_ITS | Clinical Summary ---
Author Organization [facility] Address [address] [address] Phone Care Team Providers Care Sr. Director Product Management Name Role Phone Nahed Parkinson MD Primary Care Provider + Cha Álvarez MD Unavailable [phone] Cha Álvarez MD Unavailable [phone] Allergies No known active allergies Medications dorzolamide-maribell olol (COSOPT) 22.3-6.8 mg/mL ophthalmic solution Place 1 drop into the right eye 2 (two) times a day. 1 DROP INTO RIGHT EYE Ophthalmic QD Active venlafaxine (EFFEXOR) 75 MG tablet Take 75 mg by mouth daily. Active apixaban (ELIQUIS) 5 mg tablet Take 5 mg by mouth 2 (two) times a day. Active carbidopa-levod opa (SINEMET) 25-100 mg per tablet Take 2 tablets by mouth 2 (two) times a day. ALSO TAKE: AN EXTRA 2.5 TAB ONCE DAILY MIDDAY. 1 Active venlafaxine (EFFEXOR-XR) 37.5 MG 24 hr capsule TAKE 1 CAPSULE (37.5 MG TOTAL) BY MOUTH DAILY. TAKE IN ADDITON TO 75 MG DAILY 90 capsule 1 4 Active Medication-Free Text REFRESH EYE DROPS Active levothyroxine (SYNTHROID, LEVOTHROID) 112 MCG tablet Take 112 mcg by mouth every morning. 5 Active MAGNESIUM GLYCINATE ORAL Take 100 mg by mouth daily. 5 Active cholecalciferol (VITAMIN D3) 25 MCG (1,000 unit) tablet Take 1,000 Units by mouth daily. 5 Active polyethylene glycol (MIRALAX) 17 gram/dose powder Take 17 g by mouth daily as needed for mild constipation. 5 Active acetaminophen (TYLENOL EXTRA STRENGTH) 500 MG tablet Take 1,000 mg by mouth every 8 (eight) hours as needed for pain (specific location in comments). 5 Active nystatin (NYSTOP) powder Apply 1 Application topically 3 (three) times a day. 5 Active docusate (COLACE) 50 mg/5 mL liquid Take 10 mL (100 mg total) by mouth 2 (two) times a day. 5 Active Additional Information Patient not taking.Reported on 01/12/2025 senna (SENOKOT) 8.6 mg tablet Take 2 tablets by mouth nightly at bedtime. 5 Active Active Problems Problem Noted Date Diagnosed Date Hypothyroid 11/23/2024 Assessment & Plan (11/23/2024 10:05 AM EDT): Continue home Levothyroxine - TSH wnl 10/2024 Fall, initial encounter 11/17/2024 Assessment & Plan (11/23/2024 10:05 AM EDT): Displaced left femoral neck fracture from fall. Her partner was in the room at the time of the fall but did not see the entire event. She was seen to get up out of bed in the night which she never does, did not use the walker and always needs cueing to use a grab bar. Found in the bathroom. Etiology of her fall remains unclear. Patient underwent left hip cemented hemiarthroplasty for displaced femoral neck fracture on 11/[address] Ceballos Pt has had some postop delirium. Labs have remained stable , vital signs stable. Post op tachycardia has improved. PT and OT continue - Discharge planning in process with case management will need SNF. - Continue bowel regimen Assessment & Plan (11/22/2024 9:36 AM EDT): Displaced left femoral neck fracture from fall. Her partner was in the room at the time of the fall but did not see the entire event. She was seen to get up out of bed in the night which she never does, did not use the walker and always needs cueing to use a grab bar. Found in the bathroom. Etiology of her fall remains unclear. Patient underwent left hip cemented hemiarthroplasty for displaced femoral neck fracture on 11/[address] Ceballos Per nursing notes, she has had some postop delirium. Labs have remained stable over the weekend, vital signs stable. Tachycardia has improved. PT and OT continue, will discuss discharge planning with family and case management. Assessment & Plan (11/21/2024 2:10 PM EDT): Displaced left femoral neck fracture from fall. Her partner was in the room at the time of the fall but did not see the entire event. She was seen to get up out of bed in the night which she never does, did not use the walker and always needs cueing to use a grab bar. Found in the bathroom. CT head neck without acute pathology, baseline labs unremarkable, UA without pyuria. Orthopedic surgery consult in place, planning surgery on Friday. Patient is currently on anticoagulation with apixaban, last dose presumed to be evening of 11/16 Analgesia plan Tylenol, opioids Neurovascular checks of the left leg Assess nutritional deficiencies- B12, vitamin D Frailty, dementia and Parkinson's. 0.5% Donald perioperative risk patient is DNR Surgery on 11/19 Assessment & Plan (11/20/2024 2:07 PM EDT): Displaced left femoral neck fracture from fall. Her partner was in the room at the time of the fall but did not see the entire event. She was seen to get up out of bed in the night which she never does, did not use the walker and always needs cueing to use a grab bar. Found in the bathroom. CT head neck without acute pathology, baseline labs unremarkable, UA without pyuria. Orthopedic surgery consult in place, planning surgery on Friday. Patient is currently on anticoagulation with apixaban, last dose presumed to be evening of 11/16 Analgesia plan Tylenol, opioids Neurovascular checks of the left leg Assess nutritional deficiencies- B12, vitamin D Frailty, dementia and Parkinson's. 0.5% Donald perioperative risk patient is DNR Surgery on 11/19 Assessment & Plan (11/19/2024 12:31 PM EDT): Displaced left femoral neck fracture from fall. Her partner was in the room at the time of the fall but did not see the entire event. She was seen to get up out of bed in the night which she never does, did not use the walker and always needs cueing to use a grab bar. Found in the bathroom. CT head neck without acute pathology, baseline labs unremarkable, UA without pyuria. Orthopedic surgery consult in place, planning surgery on Friday. Patient is currently on anticoagulation with apixaban, last dose presumed to be evening of 11/16 Analgesia plan Tylenol, opioids Neurovascular checks of the left leg Assess nutritional deficiencies- B12, vitamin D Frailty, dementia and Parkinson's. 0.5% Donald perioperative risk patient is DNR I was able to update her to healthcare proxy who is in again today, she will be present in the hospital again tomorrow. N.p.o. overnight, surgery planned this morning. Assessment & Plan (11/18/2024 11:32 AM EDT): Displaced left femoral neck fracture from fall. Her partner was in the room at the time of the fall but did not see the entire event. She was seen to get up out of bed in the night which she never does, did not use the walker and always needs cueing to use a grab bar. Found in the bathroom. CT head neck without acute pathology, baseline labs unremarkable, UA without pyuria. Orthopedic surgery consult in place, planning surgery on Friday. Patient is currently on anticoagulation with apixaban, last dose presumed to be evening of 11/16 Analgesia plan Tylenol, opioids Neurovascular checks of the left leg Assess nutritional deficiencies- B12, vitamin D Frailty, dementia and Parkinson's. 0.5% Donald perioperative risk patient is DNR I was able to update her to healthcare proxies and her partner today at bedside Assessment & Plan (11/17/2024 1:59 PM EDT): Displaced left femoral neck fracture from fall from unclear circumstances, has been down for at least 30 minutes. Orthopedic surgery consult in place, planning surgery on Friday. Patient is currently on anticoagulation with apixaban, last dose presumed to be last night. Analgesia plan Tylenol, opioids Neurovascular checks of the left leg Assess nutritional deficiencies Osteoporosis, unspecified os teoporosis type, unspecified pathological fracture presence 04/14/2024 Moderate dementia with mood disturbance 12/02/19 Assessment & Plan (11/23/2024 10:05 AM EDT): She sees geriatrics as outpatient- Dr Preeti Roberts has let her know that she is here and Dr. Martin made aware of admission by hospitalist team last week Patient has not required significant amounts of narcotics. Continues on bowel protocol Assessment & Plan (11/22/2024 9:36 AM EDT): she sees geriatrics as outpatient- Dr Preeti Roberts has let her know that she is here and I spoke with Dr. Martin last week Patient has not required significant amounts of narcotics. Continues on bowel protocol Assessment & Plan (11/21/2024 2:11 PM EDT): she sees geriatrics as outpatient- Dr Preeti Roberts will let Dr. Álvarez know she is here. No indication that I see for inpatient consult We will place patient on delirium precautions Low dose seroquel should be safe in parkinson's if necessary D/c tele monitoring Assessment & Plan (11/20/2024 2:07 PM EDT): she sees geriatrics as outpatient- Dr Álvarez Previous hospitalist spoke with Dr Martin who usually does hospital consults, he is not available until Friday. Family will let Dr. Álvarez know she is here. We will place patient on delirium precautions Low dose seroquel should be safe in parkinson's if necessary D/c tele monitoring Assessment & Plan (11/19/2024 12:31 PM EDT): she sees geriatrics as outpatient- Dr Álvarez I spoke with Dr Martin who usually does hospital consults, he is not available until Friday. Family will let Dr. Álvarez know she is here. We will place patient on delirium precautions Assessment & Plan (11/18/2024 11:32 AM EDT): she sees geriatrics as outpatient- Dr Preeti Chahal spoke with Dr Martin who usually does hospital consults, he is not available until Friday. Family will let Dr. Álvarez know she is here. We will place patient on delirium precautions Assessment & Plan (11/17/2024 1:59 PM EDT): geriatrics consult, she sees geriatrics as outpatient Mood disorder 12/02/2023 DNR (do not resuscitate) 12/02/2023 Encounter for medication review 12/02/2023 Permanent atrial fibrillation 02/17/2018 Assessment & Plan (11/23/2024 10:05 AM EDT): Continue Apixaban Assessment & Plan (11/22/2024 9:36 AM EDT): Apixaban was restarted postoperatively Assessment & Plan (11/21/2024 2:10 PM EDT): Holding apixaban as above, HR continues to be in low 100s which is still considered controlled Assessment & Plan (11/20/2024 2:07 PM EDT): Holding apixaban as above, HR continues to be in low 100s which is still considered controlled Assessment & Plan (11/19/2024 12:31 PM EDT): Holding apixaban as above, heart rate elevated overnight possibly due to pain, patient not on any rate altering medications. She did receive IV fluid overnight again, family does not recall whether she is chronically tachycardic. Assessment & Plan (11/18/2024 11:32 AM EDT): Holding apixaban as above, heart rate elevated overnight possibly due to pain, patient not on any rate altering medications. She did receive IV fluid overnight Assessment & Plan (11/17/2024 1:59 PM EDT): Holding apixaban Observed sleep apnea 02/17/2018 Assessment & Plan (11/23/2024 9:27 AM EDT): Needs formal diagnosis Per H&P Choker Hooker offered CPAP, autotitrated 4-20 cm of water, EPR [address] Holder Assessment & Plan (11/22/2024 9:36 AM EDT): Needs formal diagnosis Per H&P Choker Hooker offered CPAP, autotitrated 4-20 cm of water, EPR [address] Holder Assessment & Plan (11/21/2024 2:10 PM EDT): Needs formal diagnosis Per H&P Could offer CPAP, autotitrated 4-20 cm of water, EPR [address] Holder Assessment & Plan (11/20/2024 2:07 PM EDT): Needs formal diagnosis Per H&P Could offer CPAP, autotitrated 4-20 cm of water, EPR [address] Holder Assessment & Plan (11/19/2024 12:31 PM EDT): Needs formal diagnosis Per H&P Could offer CPAP, autotitrated 4-20 cm of water, EPR [address] Holder Assessment & Plan (11/18/2024 11:32 AM EDT): Needs formal diagnosis Could offer CPAP, autotitrated 4-20 cm of water, EPR [address] Holder Assessment & Plan (11/17/2024 3:15 PM EDT): Needs formal diagnosis though Can offer CPAP, autotitrated 4-20 cm of water, EPR 3 Parkinson disease 02/17/2018 Assessment & Plan (11/23/2024 9:27 AM EDT): Continue home carbidopa levodopa Family has noticed her Parkinson's getting worse over the last few months and may have contributed to her fall. Continue PT and OT, geriatric delirium precautions Assessment & Plan (11/22/2024 9:36 AM EDT): Continue home carbidopa levodopa Family has noticed her Parkinson's getting worse over the last few months and may have contributed to her fall. Continue PT and OT, geriatric delirium precautions Assessment & Plan (11/21/2024 2:10 PM EDT): Continue home carbidopa levodopa Mobilize postop as soon as possible postop Family has noticed her Parkinson's getting worse over the last few months Assessment & Plan (11/20/2024 2:07 PM EDT): Continue home carbidopa levodopa Mobilize postop as soon as possible postop Family has noticed her Parkinson's getting worse over the last few months Assessment & Plan (11/19/2024 12:31 PM EDT): Continue home carbidopa levodopa Mobilize postop as soon as possible postop Family has noticed her Parkinson's getting worse over the last few months Assessment & Plan (11/18/2024 11:32 AM EDT): Continue home carbidopa levodopa Mobilize postop as soon as possible Family has noticed her Parkinson's getting worse over the last few months Assessment & Plan (11/17/2024 1:59 PM EDT): Continue home carbidopa levodopa Family History Medical History Relation Comments No Known Problems Father No Known Problems Mother Relation Status Comments Father Mother Social History Tobacco Use Types Packs/Day Years Used Date Smoking Tobacco: Former Cigarettes Smokeless Tobacco: Never Tobacco Cessation:Counseling Given: Not Answered Alcohol Use Standard Drinks/Week Comments Not Currently [...] PM EST Sexual Orientation Not on file Last Filed Vital Signs Vital Sign Reading Time Taken Comments Blood Pressure 172/80 11/23/2024 4:05 PM EDT Pulse 106 11/23/2024 4:05 PM EDT Temperature 36.8 C (98.2 F) 11/23/2024 4:05 PM EDT Respiratory Rate 16 11/23/2024 4:05 PM EDT Oxygen Saturation 96% 11/23/2024 4:05 PM EDT Inhaled Oxygen Concentration - - Weight 96.3 kg (212 lb 4.9 oz) 01/12/2025 11:32 AM EDT Height 162.6 cm (5' 4.02 ) 12/15/2024 2:36 PM ED T Body Mass Index 36.42 12/15/2024 2:36 PM EDT Plan of Treatment Upcoming Encounters Date Type Department Care Team (Late st Contact Info) Description 01/11/2026 1:30 PM EDT Office Visit [facility] Orthopedics & Sports Medicine [address] [place] [address] [place] [address] Mina Ceballos MD [address] [place] [address] Orthopedics & Sports Medicine, [facility] [place] [address] [email or web address] Health Maintenance Due Date Last Done Comments RSV VACCINE (1 - 1-dose 75+ series) 2012 PNEUMOCOCCAL VACCINES (50+ years) (2 of 2 - PPSV23) 07/17/2016 07/17/2015 DEPRESSION SCREENING 12/01/2024 12/02/2023, 12/02/19 24 INFLUENZA VACCINE (#1) 2025 , 05/08/2023, 05/10/2022, Additional history exists COVID-19 VACCINE ( season) 2025 06/15/2024, 07/15/2023, 01/15/2023, Additional history exists TSH LEVEL 11/19/2025 11/19/2024, 11/26/2023 CREATININE LEVEL 11/23/2025 11/23/2024, , 11/20/2024, Additional history exists Adult Td,Tdap Booster 01/13/2034 01/14/2024, 011 HEPATITIS A VACCINES Aged Out 01/30/2001 No long er eligible based on patient's age to complete this topic ZOSTER VACCINES Completed 07/29/2019, 01/2019, 09/17/2006 OSTEOPOROSIS SCREENING INITIAL (ONE-TIME) Completed 03/10/2024, 12/15/2020 HIB VACCINES Aged Out No longer eligi ble based on patient's age to complete this topic MENINGOCOCCAL VACCINES (ACWY) Aged Out No longer eligible based on patient's age to complete this topic MENINGOCOCCAL VACCINES (B) Aged Out N o longer eligible based on patient's age to complete this topic Medical Devices Implanted Type Area Theatre Arts Professor Device Identifier Shelf Expiration Date Model / Serial / Lot Cement Bone 1x40 Standard - [id number] Implanted:Qty : 1 on 11/19/2024 by Mina Ceballos MD at [facility] Left: Femur [employer]ELIB[employer]O [employer] 02/21/2027 [id number] / / [id number] Cement Bone 1x40 Standard - [id number] Implanted:Qty : 1 on 11/19/2024 by Mina Ceballos MD at [facility] Left: Femur FELIBERTO [employer]ET 02/21/2027 [id number] / / [id number] Hip Stem 9mm Femoral Lateral Echo Fx Offset - [id number] Implanted:Qty : 1 on 11/19/2024 by Mina Ceballos MD at [facility] Left: [employer] 10/09/2032 [id number] / / [id number] Hip Insert 3mm Femoral Bio Marin Ii Endo Titanium Alloy Taper Minus - [id number] Implanted:Qty : 1 on 11/19/2024 by Mina Ceballos MD at [facility] Left: [employer] 11/11/2033 [id number] / / [id number] Femoral Head 48mm Shell Endo Ii Titanium Alloy Unipolar - [id number] Implanted:Qty : 1 on 11/19/2024 by Mina Ceballos MD at [facility] Left: [employer] 08/04/2033 [id number] / / [id number] Medullary Cement Plugs 1-20 Mm Implanted:Qty : 1 on 11/19/2024 by Mina Ceballos MD at [facility] Left: Acetabulum 02/01/2029 / / [id number] Procedures Procedure Name Priority Date/Time Associated Diagnosis Comments BASIC METABOLIC PANEL STAT 11/23/2024 7:01 AM EDT TSH Timed 11/19/2024 7:46 AM EDT BD DXA AXIAL (SPINE) WITH HIP Routine 03/10/2024 1:27 PM EDT Osteoporosis, unspecified osteoporosis type, unspecified pathological fracture presence from Last 3 Months or Most Recently Relevant to Health Maintenance Results * (ABNORMAL) Basic metabolic panel (11/23/2024 7:01 AM EDT) SODIUM 137 133 - 146 mmol/L [facility] CHLORIDE 102 96 - 108 mmol/L [facility] POTASSIUM 3.5 3.3 - 5.1 mmol/L [facility] CO2 27 21 - 35 mmol/L [facility] BUN 11 6 - 19 mg/dL [facility] CREATININE 0.50 0.5 - 1.5 mg/dL [facility] GLUCOSE 113(H) 70 - 99 mg/dL [facility] CALCIUM 8.2(L) 8.4 - 10.3 mg/dL [facility] EGFR 91 >59 mL/min/1.7 3m2 [facility] Comment:Estimated glomerular filtration rate calculated using the CKD-EPI refit equation. ANION GAP 12 10 - 20 mmol/L [facility] Blood 11/23/2024 7:01 AM EDT 11/23/2024 7:18 AM EDT Lanette Finley [employer] BLOOD ORDERABLES Fin al Result [address] [address] * TSH (11/19/2024 7:46 AM EDT) TSH 3.21 0.27 - 4.20 uIU/mL [facility] Blood 11/19/2024 7:46 AM EDT 11/19/2024 7:49 AM EDT us Angelica Bjorn Newberry [employer] [facility] BLOOD ORDERABLES Fi nal Result Performing Organization Address City/[facility]/ZIP Co de Phone Number [address] [address] * BD DXA AXIAL (SPINE) WITH HIP (03/10/2024 1:27 PM EDT) Anatomical Region Laterality Modality Bone Density Bone Density 03/10/2024 1:15 PM EDT Impressions 03/10/2024 1:29 PM EDT Interpretation: Osteopenia. Narrative 03/10/2024 1:29 PM EDT Referred By: NAHED PARKINSON Indications: Osteoporosis Scanner: B-Obvious A with serial# of [id number] located at [facility] Bone Density Scan (DXA) 03/10/24 Details of prior DXA scans are available by clicking View Image BMD T- Z- Skeletal Site gm/cm2 score score BMD Change Since Prior Scan ------ ----- ----- PA Spine (L1 L2) 1.395 3.80 6.50 0.344 (32.7%)* since 12/15/2020 Total Hip (Left) 0.744 -1.60 0.70 0.019 (stable) since 12/15/2020 Femoral Neck (Left) 0.629 -2.00 0.50 0.037 (6.3%)* since 12/15/2020 ------ ----- ----- * Denotes significant change when >= 0.022 g/cm2 for the spine, 0.027 g/cm2 for the total hip, 0.029 g/cm2 for the femoral neck. Interpretation: Osteopenia. Technical Quality: Imaging of all sites was of adequate quality.Because only two vertebrae are measurable, interpret PA spine results with caution; serial changes may be more variable than usual. FRAX: Based on FRAX(r) 3.6 ([place] White female), this patient's likelihood of hip fracture is 4.1% and major osteoporotic fracture is 13.7% over the next 10 years. The patient reported no risks of fracture. Additional Information: -World Health Organization criteria classify adults based on lowest T-score at PA spine, hip or forearm: Normal (T-score >= -1.0), Osteopenia (T-score between -1 and -2.5), or Osteoporosis (T-score <= -2.5). At [facility], T-scores are compared to peak bone density of a young white gender matched reference population. - For premenopausal women and men under the age of 50, Z-scores (comparison to age, gender, and ethnicity matched reference population) are used: Above expected range for age (Z-score >= 2.0), Within expected range of age (Z-score 1.9 to -1.9), or Below expected range for age (Z-score <= -2.0). - The Bone Health and Osteoporosis Foundation recommends that treatment be considered in men aged more than 50 years and in postmenopausal women with ANY of the following: Prior hip or vertebral fractures; T-score of <= -2.5 at the PA spine or hip; or 10 year fracture probability by FRAX of >= 3% for the hip or >= 20% for major osteoporotic fracture. - The FRAX algorithm (https://www.ronaldo.ac.uk/FRAX/tool.aspx) is designed to predict 10-year fracture risk in treatment-naive adults between the ages of 40 and 90. It is not intended to be used in those receiving pharmacologic osteoporosis treatment. - Including race/ethnicity in the generation of T- or Z-scores or in the FRAX calculation is complicated, and currently undergoing active review to ensure that we can give patients the best information on their risk of fracture. -Some prior studies may not be compatible with our comparison software. -Click on View Full Report to see subsequent pages with images and prior bone density results. Reviewed By: Kendall uRiz MD on 03/10/2024 13:29:37 Procedure Note Kendall Ruiz MD - 03/10/2024 Referred By: NAHED PARKINSON Indications: Osteoporosis Scanner: B-Obvious A with serial# of [id number] located at [facility] Bone Density Scan (DXA) 03/10/24 Details of prior DXA scans are available by clicking View Image BMD T- Z- Skeletal Site gm/cm2 score score BMD Change Since Prior Scan ------ ----- PA Spine (L1 L2) 1.395 3.80 6.50 0.344 (32.7%)* since12/15/2020 Total Hip (Left) 0.744 -1.60 0.70 0.019 (stable) 12/15/2020 Femoral Neck (Left) 0.629 -2.00 0.50 0.037 (6.3%)* 12/15/2020 ------ ----- * Denotes significant change when >= 0.022 g/cm2 for the spine, 0.027g/cm2 for the total hip, 0.029 g/cm2 for the femoral neck. Interpretation: Osteopenia. Technical Quality: Imaging of all sites was of adequate quality.Becauseonly two vertebrae are measurable, interpret PA spine results with caution; serial changes may be more variable than usual. FRAX: Based on FRAX(r) 3.6 ([place] White female), this patient's likelihoodof hip fracture is 4.1% and major osteoporotic fracture is 13.7% over thenext 10 years. The patient reported no risks of fracture. Additional Information: -World Health Organization criteria classify adults based on lowestT-score at PA spine, hip or forearm: Normal (T-score >= -1.0), Osteopenia (T-score between -1 and -2.5), or Osteoporosis (T-score <= -2.5). At [facility], T-scores are compared to peak bone density of a young white gender matched reference population. - For premenopausal women and men under the age of 50, Z-scores(comparison to age, gender, and ethnicity matched reference population) are used:Above expected range for age (Z-score >= 2.0), Within expected range of age (Z-score 1.9 to -1.9), or Below expected range for age (Z-score <= -2.0). - The Bone Health and Osteoporosis Foundation recommends that treatment be considered in men aged more than 50 years and in postmenopausal women with ANY of the following: Prior hip or vertebral fractures; T-score of <= -2.5 at the PA spine or hip; or 10 year fracture probability by FRAX of >= 3%for the hip or >= 20% for major osteoporotic fracture. - The FRAX algorithm (https://www.ronaldo.ac.uk/FRAX/tool.aspx) is designed to predict 10-year fracture risk in treatment-naive adultsbetween the ages of 40 and 90. It is not intended to be used in those receiving pharmacologic osteoporosis treatment. - Including race/ethnicity in the generation of T- or Z-scores or in the FRAX calculation is complicated, and currently undergoing active review to ensure that we can give patients the best information on their risk of fracture. -Some prior studies may not be compatible with our comparison software. -Click on View Full Report to see subsequent pages with images and prior bone density results. Reviewed By: Kendall Ruiz MD on 03/10/2024 13:29:37 IMPRESSION: Interpretation: Osteopenia. Nahed Parkinson MD IMG BD BONE DENSITY DEXA Final Result from Last 3 Months or Most Recently Relevant to Health Maintenance Insurance MEDICARE PART A & B [facility] MEDICARE SUPPLEMENT MEDICARE PART A & B [facility] MEDICARE SUPPLEMENT MEDICARE PART A & B [facility] MEDICARE SUPPLEMENT MEDICARE PART A & B MEDICARE SUPPLEMENT MEDICARE PART A & B MEDICARE SUPPLEMENT MEDICARE PART A & B Member Subscriber Plan / Payer (Ef fective 2002-Present) Name:Fernando Motley Member ID:[id number] Relation to Subscriber:Self Name:Fernando Motley Subscriber ID:[id number] Payer ID:[id number] Group ID:Not on file Type:Medicare Address: [employer] [address] [facility] MEDICARE SUPPLEMENT MEDICARE PART A & B [facility] MEDICARE SUPPLEMENT MEDICARE PART A & B MEDICARE SUPPLEMENT MEDICARE PART A & B [facility] MEDICARE SUPPLEMENT Advance Directives For more information, please contact: [phone] (9AM - 5PM Dori/[facility], Friday-Friday) Documents on File Type Date Recorded Patient Professional Programmer Analyst Expl [employer] Proxy 11/26/2024 1:22 PM MOLST 11/04/2023 12:28 PM * DNR/DNI (No CPR/No Intubation) (Latest Code Status on File) Date Activated Date Inactivated Comments 12/02/2023 3:16 PM Question Answer Comments Code Status Confirmed With: Surrogate Healthcare Agents on File Name Relationship Healthcare Agent Relationship Communication Mandie Mic Other .Primary Health Care Agent (Proxy form on file) [email or web address] Murri[place] Relative Alternate Health care Agent (Proxy form on file) [email or web address] Care Teams Sr. Director Product Management Relationship Specialty Start Date End Date Nahed Parkinson MD [address] [place] [address] PCP - General Family Medicine 04/21/18 Cha Álvarez MD [address] [place] [address] Consulting Provider Geriatric Medicine 12/29/20 Cha Álvarez MD [address] [place] [address] Geriatric Medicine 06/28/24 Additional Source Comments The information contained in this document represents components of the legal health record. It is not the complete legal health record.[facility]
--- OUTSIDE RECORDS SUMMARY | 2025-05-30 16:27 | XMS_ITS | Encounter Summary ---
Author Organization [facility] Address [address] [place] [address] Phone Care Team Providers Care Keyseater Operator Name Role Phone Nahed Ramos MD Primary Care Provider + Cha Álvarez MD Unavailable [phone] Cha Álvarez MD Unavailable [phone] Encounter Details Date Type Department Care Team (Late st Contact Info) Description 07/18/2020 Ancillary Orders Virtual Department 30 [place] [address] Caroline Shepherd PA 6 [place] [address] [email or web address] Osteoporosis, unspecified osteoporosis type, unspecified pathological fracture presence Social History Tobacco Use Types Packs/Day Years [...] Description 01/11/2026 1:30 PM EDT Office Visit [facility] Orthopedics & Sports Medicine [address] [place] [address] [place] [address] Mina Ceballos MD [address] [place] [address] Orthopedics & Sports Medicine, [facility] [place] [address] [email or web address] documented as of this encounter Visit Diagnoses Diagnosis Osteoporosis, unspecified osteoporosis type, unspecified pathological fracture presence documented in this encounter Care Teams Keyseater Operator Relationship Specialty Start Date End Date Nahed Ramos MD [address] [place] [address] [email or web address] PCP - General Family Medicine 04/21/18 Cha Álvarez MD [address] [place] [address] Consulting Provider Geriatric Medicine 12/29/20 Cha Álvarez MD [address] [place] [address] Geriatric Medicine 06/28/24 documented as of this encounter Additional Source Comments The information contained in this document represents components of the legal health record. It is not the complete legal health record.[facility]
--- OUTSIDE RECORDS SUMMARY | 2025-05-30 16:27 | XMS_ITS | Encounter Summary ---
Author Organization [facility] Address [address] [place] [address] Phone Care Team Providers Care Press Supervisor Name Role Phone Nahed Ramos MD Primary Care Provider + Cha Álvarez MD Unavailable [phone] Cha Álvarez MD Unavailable [phone] Reason for Referral * Physical Therapy (Elective) - Closed Specialty Diagnoses / Procedures Referred By Mary lozada Referred To Contact Physical Therapy Diagnoses Encounter for rehabilitation Nahed Ramos MD Phone: tel: fax: [email or web address] [address] [address] Phone: tel: Referral ID Status Reason Start Date Expiration Date Visits Re quested Visits Authorized [id number] Closed 03/03/2020 03/03/2021 1 1 Encounter Details Date Type Department Care Team (Latest Contact Info) Description 03/03/2020 Transcribe Orders [facility] Rehabilitation Services [address] [place] [address] Nahed Ramos MD [address] [place] [address] [email or web address] Encounter for rehabilitation (Primary Dx) Social History Tobacco Use Types [...] Description 01/11/2026 1:30 PM EDT Office Visit [facility] Orthopedics & Sports Medicine [address] [place] [address] [place] [address] Mina Ceballos MD [address] [place] [address] Orthopedics & Sports Medicine, [place] [address] Scheduled Referrals Name Type Priority Associated Diagnoses Orde r Schedule Ambulatory referral to [facility] Physical Therapy Outpatient Referral Routine Encounter for rehabilitation Ordered: 03/03/2020 documented as of this encounter Visit Diagnoses Diagnosis Encounter for rehabilitation- Primary documented in this encounter Care Teams Press Supervisor Relationship Specialty Start Date End Date Nahed Ramos MD [address] [place] [address] PCP - General Family Medicine 04/21/18 Cha Álvarez MD [address] [place] [address] Consulting Provider Geriatric Medicine 12/29/20 Cha Álvarez MD [address] [place], [place] [id number] [email or web address] Geriatric Medicine 06/28/24 documented as of this encounter Additional Source Comments The information contained in this document represents components of the legal health record. It is not the complete legal health record.[facility]
--- OUTSIDE RECORDS SUMMARY | 2025-05-30 16:27 | XMS_ITS | Encounter Summary ---
Author Organization [facility] Address [address] [address] Phone Care Team Providers Care Mortgage Loan Assistant Name Role Phone Nahed Ramos MD Primary Care Provider + Cha Álvarez MD Unavailable [phone] Cha Álvarez MD Unavailable [phone] Encounter Details Date Type Department Care Team (Late st Contact Info) Description 11/01/2023 Transcribe Orders [facility] Specimen Processing 30 [place] [address] Daniel Hernandez MD [address] [facility] [address], [address] [place] [address] [email or web address] Hypothyroidism, unspecified type (Primary Dx) Social History Tobacco Use Types Packs/Day Years Used Date Smoking Tobacco: Never Assessed Education Answer Date Recorded Are you interested [...] Description 01/11/2026 1:30 PM EDT Office Visit [facility] Orthopedics & Sports Medicine [address] [place] [address] [place] [address] Mina Ceballos MD [address] [place] [address] Orthopedics & Sports Medicine, [facility] [place] [address] [email or web address] documented as of this encounter Visit Diagnoses Diagnosis Hypothyroidism, unspecified type- Primary documented in this encounter Additional Health Concerns Assessment Noted Time PHQ-9 Depression Total Score: 14 023 11:03 AM EST PHQ-2 Depression Total Score: 4 07/04/20 23 11:03 AM EST documented as of this encounter Care Teams Mortgage Loan Assistant Relationship Specialty Start Date End Date Nahed Ramos MD [address] [place] [address] [email or web address] PCP - General Family Medicine 04/21/18 Cha Álvarez MD [address] [place] [address] [email or web address] Consulting Provider Geriatric Medicine 12/29/20 Cha Álvarez MD [address] [place] [phone] [email or web address] Geriatric Medicine 06/28/24 documented as of this encounter Additional Source Comments The information contained in this document represents components of the legal health record. It is not the complete legal health record.[facility]
--- OUTSIDE RECORDS SUMMARY | 2025-05-30 16:27 | XMS_ITS | Encounter Summary ---
Author Organization [facility] Address [address] [address] Phone Care Team Providers Care Disability Case Manager Name Role Phone Nahed Parkinson MD Primary Care Provider + Cha Álvarez MD Unavailable [phone] Cha Álvarez MD Unavailable [phone] Encounter Details Date Type Department Care Team (Late st Contact Info) Description 08/05/2023 Transcribe Orders Virtual Department 30 [place] [address] Nahed Parkinson MD [address] [place] [address] [email or web address] Osteoporosis, unspecified osteoporosis type, unspecified pathological fracture presence (Primary Dx) Social History Tobacco Use Types [...] with a working camera? Not on file Comments Unknown Sex and Gender Information Value Date Recorded Sex Assigned at Female 10/06/2024 1:26 PM EST Legal Sex Female 10:13 PM EDT Gender Identity Female 10/06/2024 1:26 PM EST Sexual Orientation Not on file documented as of this encounter Plan of Treatment Upcoming Encounters Date Type Department Care Team (Late st Contact Info) Description 01/11/2026 1:30 PM EDT Office Visit [facility] Orthopedics & Sports Medicine [address] [place] [address] [place] [address] Mina Ceballos MD [address] [place] [address] Orthopedics & Sports Medicine, [facility] [place] [address] [email or web address] documented as of this encounter Results * BD DXA AXIAL (SPINE) WITH HIP (03/10/2024 1:27 PM EDT) Anatomical Region Laterality Modality Bone Density Bone Density 03/10/2024 1:15 PM EDT Impressions 03/10/2024 1:29 PM EDT Interpretation: Osteopenia. Narrative 03/10/2024 1:29 PM EDT Referred By: NAHED PARKINSON Indications: Osteoporosis Scanner: HoloSurgient A with serial# of [id number] located at [facility] Bone Density Scan (DXA) 03/10/24 Details of [...] -2.5), or Osteoporosis (T-score <= -2.5). At [facility], T-scores are compared to peak bone density [...] By: Kendall Ruiz MD on 03/10/2024 13:29:37 Procedure Note Kendall Ruiz MD - 03/10/2024 Referred By: NAHED PARKINSON Indications: Osteoporosis Scanner: Augustine Temperature Management A with serial# of [id number] located at [facility] Bone Density Scan (DXA) 03/10/24 Details of prior DXA scans are available by clicking View Image BMD T- Z- Skeletal Site gm/cm2 score score BMD Change Since Prior Scan ------ ----- PA Spine (L1 L2) 1.395 3.80 6.50 0.344 (32.7%)* since12/15/2020 Total Hip (Left) 0.744 -1.60 0.70 0.019 (stable) since12/15/2020 Femoral Neck (Left) 0.629 -2.00 0.50 0.037 [...] -2.5), or Osteoporosis (T-score <= -2.5). At [facility], T-scores are compared to peak bone density [...] MD on 03/10/2024 13:29:37 IMPRESSION: Interpretation: Osteopenia. us Nahed Parkinson MD IMG BD BONE DENSITY DEXA Final Result documented in this encounter Visit Diagnoses Diagnosis Osteoporosis, unspecified osteoporosis type, unspecified pathological fracture presence- Primary Osteoporosis, unspecified osteoporosis type, unspecified pathological fracture presence documented in this encounter Additional Health Concerns Assessment Noted Time PHQ-9 Depression Total Score: 14 023 11:03 AM EST PHQ-2 Depression Total Score: 4 07/04/20 23 11:03 AM EST documented as of this encounter Care Teams Disability Case Manager Relationship Specialty Start Date End Date Nahed Parkinson MD [address] [place] [address] [email or web address] PCP - General Family Medicine 04/21/18 Cha Álvarez MD [address] [place] [address] [email or web address] Consulting Provider Geriatric Medicine 12/29/20 Cha Álvarez MD [address] [place] [address] Geriatric Medicine 06/28/24 documented as of this encounter Additional Source Comments The information contained in this document represents components of the legal health record. It is not the complete legal health record.[facility]
--- OUTSIDE RECORDS SUMMARY | 2025-05-30 16:27 | XMS_ITS | Encounter Summary ---
Author Organization [facility] Address [address] [place] [address] Phone Care Team Providers Care Custom Decorating Consultant Name Role Phone Nahed Ramos MD Primary Care Provider + Cha Álvarez MD Unavailable [phone] Cha Álvarez MD Unavailable [phone] Encounter Details Date Type Department Care Team (Late st Contact Info) Description 04/21/2018 Ancillary Orders [facility], X-Ray - [address] [address] Es Marr PA-C [address] [place] [address] Pain Social History Tobacco Use Types Packs/Day Years [...] Description 01/11/2026 1:30 PM EDT Office Visit [facility] Orthopedics & Sports Medicine [address] [place] [address] [place] [address] Mina Ceballos MD [address] [place] [address] Orthopedics & Sports [facility] [place] [address] [email or web address] documented as of this encounter Results * XR PELVIS AP PLUS FROG OR OUTLET 2 VIEWS (04/21/2018 11:52 AM EDT) Anatomical Region Laterality Modality Hip, Pelvis Radiographic Nusrat ging 04/21/2018 12:0 1 PM EDT Impressions 04/21/2018 12:02 PM EDT Mild left periacetabular spurring. No evidence of right hip prosthetic loosening although the distal tip of the intramedullary stem is not included on the images. No acute bony abnormality suggested. POS [id number] Narrative 04/21/2018 12:02 PM EDT COMPARISON: 11/11/2013 CT FINDINGS: AP views of the pelvis were obtained with the hips in neutral and frog-lateral positioning. Visualized portions of the right hip prosthesis are intact. There is mild left-sided periacetabular spurring. The left femoral head articular surface is smooth. No acute fracture or subluxation identified. No zone of bony destruction apparent. Procedure Note Salomon Porter MD - 04/21/2018 COMPARISON: 11/11/2013 CT FINDINGS: AP views of the pelvis were obtained with the hips in neutral andfrog-lateral positioning. Visualized portions of the right hip prosthesisare intact. There is mild left-sided periacetabular spurring. The leftfemoral head articular surface is smooth. No acute fracture orsubluxation identified. No zone of bony destruction apparent. IMPRESSION: Mild left periacetabular spurring. No evidence of right hip prostheticloosening although the distal tip of the intramedullary stem is notincluded on the images. No acute bony abnormality suggested. POS [id number] Es Justa GRIFFITH-Natalia IMG XR PELVIS Final Result * XR LUMBOSACRAL SPINE 4 OR MORE VIEWS (04/21/2018 11:52 AM EDT) Anatomical Region Laterality Modality L-spine Radiographic Nusrat ging 04/21/2018 11:5 8 AM EDT Impressions 04/21/2018 12:01 PM EDT Chronic degenerative disc disease and grossly stable grade 1 spondylolisthesis at the L3-4 and L4-5 levels. Slight loss of height of the L4 body since 2013 suggesting an upper endplate compression deformity. Prominent lower lumbar degenerative facet arthropathy. POS [id number] Narrative 04/21/2018 12:01 PM EDT COMPARISON: 11/11/2013 CT FINDINGS: There are chronic mild grade 1 anterolistheses of the L3 in relation to L4 and L4 relation to L5 vertebral bodies. There is slight loss of height of the L4 body suggested, with upper endplate sclerosis present. No wedge compression fracture identified. Stable degenerative disc changes are present at the L5-S1 and to lesser extent L3-4 levels. Intervertebral disks are otherwise stable in height. There is prominent degenerative facet arthropathy on the left at the L3-4, L4-5, and L5-S1 levels with milder degenerative facet change present on the right. No spondylolysis identified. Procedure Note Salomon Porter MD - 04/21/2018 COMPARISON: 11/11/2013 CT FINDINGS: There are chronic mild grade 1 anterolistheses of the L3 in relation toL4 and L4 relation to L5 vertebral bodies. There is slight loss of heightof the L4 body suggested, with upper endplate sclerosis present. No wedgecompression fracture identified. Stable degenerative disc changes arepresent at the L5-S1 and to lesser extent L3-4 levels. Intervertebraldisks are otherwise stable in height. There is prominent degenerativefacet arthropathy on the left at the L3-4, L4-5, and L5-S1 levels withmilder degenerative facet change present on the right. No spondylolysisidentified. IMPRESSION: Chronic degenerative disc disease and grossly stable grade 1spondylolisthesis at the L3-4 and L4-5 levels. Slight loss of height ofthe L4 body since 2013 suggesting an upper endplate compression deformity.Prominent lower lumbar degenerative facet arthropathy. POS [email or web address] [facility] Justa GERMAN IMG XR SPINE Final Result documented in this encounter Visit Diagnoses Diagnosis Pain Generalized pain Pain Generalized pain Pain Generalized pain documented in this encounter Care Teams Custom Decorating Consultant Relationship Specialty Start Date End Date Nahed Ramos MD [address] [place] [address] PCP - General Family Medicine 04/21/18 Cha Álvarez MD [address] [place] [address] Consulting Provider Geriatric Medicine 12/29/20 Cha Álvarez MD [address] [place] [address] Geriatric Medicine 06/28/24 documented as of this encounter Additional Source Comments The information contained in this document represents components of the legal health record. It is not the complete legal health record.[facility]
--- OUTSIDE RECORDS SUMMARY | 2025-05-30 16:27 | XMS_ITS | Encounter Summary ---
Author Organization [facility] Address [address] [place] [address] Phone Care Team Providers Care Lithographic Etcher Name Role Phone Nahed Ramos MD Primary Care Provider + Cha Álvarez MD Unavailable [phone] Cha Álvarez MD Unavailable [phone] Reason for Referral * Physical Therapy (Elective) - Closed Specialty Diagnoses / Procedures Referred By Mary lozada Referred To Contact Physical Therapy Nahed Ramos MD Phone: tel: fax: mailto:[email or web address] [address] [address] Phone: tel: Referral ID Status Reason Start Date Expiration Date Visits Re quested Visits Authorized [id number] Closed 07/03/2023 07/02/2024 99 99 Encounter Details Date Type Department Care Team (Late st Contact Info) Description 07/03/2023 Community Orders [facility] Nahed Ramos MD [address] [place] [address] [place] [address] Social History Tobacco Use Types Packs/Day Years [...] Description 01/11/2026 1:30 PM EDT Office Visit [facility] Orthopedics & Sports Medicine [address] [place] [address] [place] [address] Mina Ceballos MD [address] [place] [address] Orthopedics & Sports Medicine, [facility] [place] [address] [email or web address] Scheduled Referrals Name Type Priority Associated Diagnoses Order Schedule Ambulatory referral to [facility] Physical Therapy Outpatient Referral Routine Ordered: 07/03/2023 documented as of this encounter Visit Diagnoses Not on filedocumented in this encounter Additional Health Concerns Assessment Noted Time PHQ-9 Depression Total Score: 13 023 3:35 PM EDT PHQ-2 Depression Total Score: 6 04/16/20 23 3:35 PM EDT documented as of this encounter Care Teams Lithographic Etcher Relationship Specialty Start Date End Date Nahed Ramos MD [address] [place] [address] [email or web address] PCP - General Family Medicine 04/21/18 Cha Álvarez MD [address] [place] [address] [email or web address] Consulting Provider Geriatric Medicine 12/29/20 Cha Álvarez MD [address] [place] [address] [email or web address] Geriatric Medicine 06/28/24 documented as of this encounter Additional Source Comments The information contained in this document represents components of the legal health record. It is not the complete legal health record.[facility]
--- OUTSIDE RECORDS SUMMARY | 2025-05-30 16:29 | XMS_ITS | Encounter Summary ---
Author Organization [facility] Address [address] [place] [address] Phone Care Team Providers Care Laborer High Density Press Name Role Phone Nahed Ramos MD Primary Care Provider + Cha Álvarez MD Unavailable [phone] Cha Álvarez MD Unavailable [phone] Encounter Details Date Type Department Care Team (Late st Contact Info) Description 11/17/2024 Procedure Pass [facility], Ct Scan - [address] [address] Social History Tobacco Use Types Packs/Day Years [...] No Risk Indicated 11/17/2024 4:04 AM EDT Vael Guaman RN * [place] Suicide Severity Rating Scale (Screener/Recent Self-Report) Question [...] Description 01/11/2026 1:30 PM EDT Office Visit [facility] Orthopedics & Sports Medicine [address] [place] [address] [place] [address] Mina Ceballos MD [address] [place] [address] Orthopedics & Sports Medicine, [place] [address] [email or web address] documented as of this encounter Visit Diagnoses Not on filedocumented in this encounter Additional Health Concerns Assessment Noted Time PHQ-9 Depression Total Score: 24 024 2:46 PM EDT PHQ-2 Depression Total Score: 5 12/02/19 24 2:46 PM EDT documented as of this encounter Care Teams Laborer High Density Press Relationship Specialty Start Date End Date Nahed Ramos MD [address] [place] [address] [place] [id number] [email or web address] PCP - General Family Medicine 04/21/18 Cha Álvarez MD [address] [place] [address] [place] [phone] [email or web address] Consulting Provider Geriatric Medicine 12/29/20 Cha Álvarez MD [address] [place], [place] [phone] [email or web address] Geriatric Medicine 06/28/24 documented as of this encounter Additional Source Comments The information contained in this document represents components of the legal health record. It is not the complete legal health record.[facility]
--- OUTSIDE RECORDS SUMMARY | 2025-05-30 16:29 | XMS_ITS | Encounter Summary ---
Author Organization [facility] Address [address] [place] [address] Phone Care Team Providers Care Surgical Asst Name Role Phone Nahed Ramos MD Primary Care Provider + Cha Álvarez MD Unavailable [phone] Cha Álvarez MD Unavailable [phone] Reason for Referral * MRI/CAT Scan - Closed Specialty Diagnoses / Procedures Referred By Mary lozada Referred To Contact Radiology Diagnoses Lumbar radiculopathy Procedures MRI Lumbar Spine Morales Ruiz DO Phone: tel: fax: [email or web address] Referral ID Status Reason Start Date Expiration Date Visits Re quested Visits Authorized [id number] Closed 08/11/2018 08/11/2019 1 1 Encounter Details Date Type Department Care Team (Latest Contact Info) Description 08/11/2018 Ancillary Orders Virtual Department [address] [place] [address] Morales Ruiz, DO [address] [place] [address] [email or web address] Lumbar radiculopathy Social History Tobacco Use Types [...] Description 01/11/2026 1:30 PM EDT Office Visit [facility] Orthopedics & Sports Medicine [address] [place] [address] [place] [address] Mina Ceballos MD [address] [place] [address] Orthopedics & Sports Medicine, [facility] [place] [address] documented as of this encounter Results * MRI LUMBAR SPINE (NEURO) WITHOUT CONTRAST (09/01/2018 4:41 PM EST) Anatomical Region Laterality Modality L-spine Magnetic Resonan ce 09/01/2018 6:31 PM EST Impressions 09/01/2018 7:09 PM EST 1. Anterolisthesis of L3 on L4, mildly progressed from March 2018. 2. Anterolisthesis of L4 on L5, grossly unchanged. 3. Multilevel degenerative changes as described, with disc extrusions at L2-L3 and L3-L4. 4. Moderate/severe canal stenosis at L3-L4. Moderate neuroforaminal stenosis on the left at L2-L3, bilateral at L3-L4, bilateral at L4-L5 and on the left at L5-S1. POS - [id number] Narrative 09/01/2018 7:09 PM EST EXAM: MRI LUMBAR SPINE (NEURO) WITHOUT CONTRAST COMPARISON: Radiograph of the lumbar spine on April 21, 2018. Abdominal CT on November 11, 2013. HISTORY: Lumbar radiculopathy TECHNIQUE: Exam performed on a 1.5 Rhona high-field MRI scanner. Magnetic resonance imaging of the lumbar spine was performed WITHOUT injected contrast using standard department protocols. Sagittal T1, T2 and STIR, axial T1 and T2 sequences were obtained. FINDINGS: ALIGNMENT: Lumbar lordosis is maintained. Grade 1 anterolisthesis of L3 on L4, mildly progressed from March 2018. Grade 1 anterolisthesis of L4 on L5, unchanged. VERTEBRAL BODIES: Vertebral body heights are maintained. Bone marrow signal pattern is within normal limits. Degenerative endplate changes in the anterior aspect at L2-L3 and over the superior endplate of L4. Small fat-containing lipoma on the right side of S1 vertebral body. Fat-containing hemangioma on the right side of L2 vertebral body. INTERVERTEBRAL DISCS: Desiccation changes are more prominent from L2 to S1 levels. Loss of disc height is more prominent at L3-L4.. SPINAL CORD/CONUS: Included spinal cord has normal caliber and signal characteristics. The conus terminates normally at L1-L2 level. Axial images were obtained from L1-L2 through L5-S1. Level by level analysis yields the following: L1-2: Minimal bulging disc. No significant canal or neuroforaminal stenosis. L2-3: Bulging disc, superimposed central disc extrusion with inferior migration, hypertrophy of posterior elements and epidural lipomatosis contributes to moderate canal stenosis and moderate left and mild right neuroforaminal stenosis. L3-4: Combination of anterolisthesis of L3 on L4, denuded disc, bulging disc, central disc extrusion with superior migration and hypertrophy of posterior elements contributes to moderate/severe canal stenosis and moderate bilateral neuroforaminal stenosis. L4-5: Combination of bulging disc and hypertrophy of posterior elements results in moderate canal stenosis and moderate bilateral neuroforaminal stenosis, greater on the right side. L5-S1: Bulging disc and hypertrophy of posterior elements results in moderate left and mild right neuroforaminal stenosis. No significant canal stenosis. Posterior annular fissure present. OTHERS:Visualized portions of the retroperitoneal structures are grossly unremarkable. Posterior paraspinal soft tissues are unremarkable. Procedure Note Irma Laughlin MD - 09/01/2018 EXAM: MRI LUMBAR SPINE (NEURO) WITHOUT CONTRAST COMPARISON: Radiograph of the lumbar spine on April 21, 2018. AbdominalCT on November 11, 2013. HISTORY: Lumbar radiculopathy TECHNIQUE: Exam performed on a 1.5 Rhona high-field MRI scanner. Magneticresonance imaging of the lumbar spine was performed WITHOUT injectedcontrast using standard department protocols. Sagittal T1, T2 and STIR,axial T1 and T2 sequences were obtained. FINDINGS: ALIGNMENT: Lumbar lordosis is maintained. Grade 1 anterolisthesis of L3 onL4, mildly progressed from March 2018. Grade 1 anterolisthesis of L4 onL5, unchanged. VERTEBRAL BODIES: Vertebral body heights are maintained. Bone marrowsignal pattern is within normal limits. Degenerative endplate changes inthe anterior aspect at L2- L3 and over the superior endplate of L4. Smallfat-containing lipoma on the right side of S1 vertebral body.Fat-containing hemangioma on the right side of L2 vertebral body. INTERVERTEBRAL DISCS: Desiccation changes are more prominent from L2 to [id number]. Loss of disc height is more prominent at L3-L4.. SPINAL CORD/CONUS: Included spinal cord has normal caliber and signalcharacteristics. The conus terminates normally at L1-L2 level. Axial images were obtained from L1-L2 through L5-S1. Level by levelanalysis yields the following: L1-2: Minimal bulging disc. No significant canal or neuroforaminalstenosis. L2-3: Bulging disc, superimposed central disc extrusion with inferiormigration, hypertrophy of posterior elements and epidural lipomatosiscontributes to moderate canal stenosis and moderate left and mild rightneuroforaminal stenosis. L3-4: Combination of anterolisthesis of L3 on L4, denuded disc, bulgingdisc, central disc extrusion with superior migration and hypertrophy ofposterior elements contributes to moderate/severe canal stenosis andmoderate bilateral neuroforaminal stenosis. L4-5: Combination of bulging disc and hypertrophy of posterior elementsresults in moderate canal stenosis and moderate bilateral neuroforaminalstenosis, greater on the right side. L5-S1: Bulging disc and hypertrophy of posterior elements results inmoderate left and mild right neuroforaminal stenosis. No significant canalstenosis. Posterior annular fissure present. OTHERS:Visualized portions of the retroperitoneal structures are grosslyunremarkable. Posterior paraspinal soft tissues are unremarkable. IMPRESSION: 1. Anterolisthesis of L3 on L4, mildly progressed from March 2018. 2. Anterolisthesis of L4 on L5, grossly unchanged. 3. Multilevel degenerative changes as described, with disc extrusions atL2-L3 and L3-L4. 4. Moderate/severe canal stenosis at L3-L4. Moderate neuroforaminalstenosis on the left at L2-L3, bilateral at L3-L4, bilateral at L4-L5 andon the left at L5-S1. POS - [id number] Morales Ruiz DO IMG MR XSPECIALTY Final Resu lt documented in this encounter Visit Diagnoses Diagnosis Lumbar radiculopathy Thoracic or lumbosacral neuritis or radiculitis, unspecified Lumbar radiculopathy Thoracic or lumbosacral neuritis or radiculitis, unspecified documented in this encounter Care Teams Surgical Asst Relationship Specialty Start Date End Date Nahed Ramos MD [address] [place] [phone] [email or web address] PCP - General Family Medicine 04/21/18 Cha Álvarez MD [address] [place] [phone] Consulting Provider Geriatric Medicine 12/29/20 Cha Álvarez MD [address] [place] [phone] Geriatric Medicine 06/28/24 documented as of this encounter Additional Source Comments The information contained in this document represents components of the legal health record. It is not the complete legal health record.[facility]
--- OUTSIDE RECORDS SUMMARY | 2025-05-30 16:29 | XMS_ITS | Encounter Summary ---
Author Organization [facility] Address [address] [place] [address] Phone Care Team Providers Care Manager Studio Name Role Phone Nahed Ramos MD Primary Care Provider + Cha Álvarez MD Unavailable [phone] Cha Álvarez MD Unavailable [phone] Encounter Details Date Type Department Care Team (Late st Contact Info) Description 08/11/2018 Procedure Pass [facility], [address] [address] Social History Tobacco Use Types Packs/Day Years [...] Description 01/11/2026 1:30 PM EDT Office Visit [facility] Orthopedics & Sports Medicine [address] [place] [address] Dr Real KEENA [address] Mina Ceballos MD [address] [place] [address] Orthopedics & [facility] [address] [email or web address] documented as of this encounter Visit Diagnoses Not on filedocumented in this encounter Care Teams Manager Studio Relationship Specialty Start Date End Date Nahed Ramos MD [address] [place] [address] [place] [address] PCP - General Family Medicine 04/21/18 Cha Álvarez MD [address] [place] [phone] Consulting Provider Geriatric Medicine 12/29/20 Cha Álvarez MD [address] [place] [address] [email or web address] Geriatric Medicine 06/28/24 documented as of this encounter Additional Source Comments The information contained in this document represents components of the legal health record. It is not the complete legal health record.[facility]
--- OUTSIDE RECORDS SUMMARY | 2025-05-30 16:29 | XMS_ITS | Encounter Summary ---
Author Organization [facility] Address [address] [place] [address] Phone Care Team Providers Care Licensed Nurse Practitioner Name Role Phone Nahed Ramos MD Primary Care Provider + Cha Álvarez MD Unavailable [phone] Cha Álvarez MD Unavailable [phone] Encounter Details Date Type Department Care Team (Late st Contact Info) Description 06/25/2018 Ancillary Orders Virtual Department [address] [place] [address] Es Marr PA-C [address] [place] [address] [email or web address] Parkinsons disease; Neck pain; Gait abnormality; Pain of lower leg, unspecified laterality Social History Tobacco Use Types Packs/Day Years [...] Description 01/11/2026 1:30 PM EDT Office Visit [facility] Orthopedics & Sports Medicine [address] [place] [address] [place] [address] Mina Ceballos MD [address] [place] [address] Orthopedics & Sports Medicine, [facility] [place] [address] [email or web address] documented as of this encounter Results * XR CERVICAL SPINE 4-5 VIEWS (06/29/2018 2:37 PM EST) Anatomical Region Laterality Modality C-spine Radiographic Nusrat ging 06/29/2018 3:14 PM EST Impressions 06/29/2018 3:17 PM EST Cervical spondylosis with foraminal encroachment more prominent on the left than the right. Degenerative disc disease most prominent at C5-6. S/S: Cervical spondylosis, neck pain, foraminal encroachment POS - [id number] Narrative 06/29/2018 3:17 PM EST COMPARISON: None FINDINGS: AP, lateral, both oblique, and odontoid views of the cervical spine are obtained. The odontoid appears intact. There is bony spurring evident at C4-5, C5-6, and C6-7. Disc space narrowing is evident at C5-6. On oblique views there is mild neural foraminal encroachment evident on the right at C5-6 seen is spurring and more diffuse neural foraminal encroachment evident from C3 3-4 through C4-5, C5-6, and C6-7 on the left. No compression fracture or subluxation is seen. The lung apices are clear. Procedure Note Layton Blackwell MD - 06/29/2018 COMPARISON: None FINDINGS: AP, lateral, both oblique, and odontoid views of the cervical spine areobtained. The odontoid appears intact. There is bony spurring evident at C4-5, C5-6, and C6-7. Disc spacenarrowing is evident at C5-6. On oblique views there is mild neural foraminal encroachment evident onthe right at C5-6 seen is spurring and more diffuse neural foraminalencroachment evident from C3 3-4 through C4-5, C5-6, and C6-7 on theleft. No compression fracture or subluxation is seen. The lung apices are clear. IMPRESSION: Cervical spondylosis with foraminal encroachment more prominent on theleft than the right. Degenerative disc disease most prominent at C5-6. S/S: Cervical spondylosis, neck pain, foraminal encroachment POS - [id number] Es Marr PA-C IMG XR SPINE Final Result documented in this encounter Visit Diagnoses Diagnosis Parkinsons disease Paralysis agitans Neck pain Cervicalgia Gait abnormality Abnormality of gait Pain of lower leg, unspecified laterality Parkinsons disease Paralysis agitans Neck pain Cervicalgia Gait abnormality Abnormality of gait Pain of lower leg, unspecified laterality documented in this encounter Care Teams Licensed Nurse Practitioner Relationship Specialty Start Date End Date Nahed Ramos MD [address] [place] [phone] [email or web address] PCP - General Family Medicine 04/21/18 Cha Álvarez MD [address] [place] [phone] [email or web address] Consulting Provider Geriatric Medicine 12/29/20 Cha Álvarez MD [address] [place] [phone] [email or web address] Geriatric Medicine 06/28/24 documented as of this encounter Additional Source Comments The information contained in this document represents components of the legal health record. It is not the complete legal health record.[facility]
--- OUTSIDE RECORDS SUMMARY | 2025-05-30 16:29 | XMS_ITS | Encounter Summary ---
Author Organization [facility] Address [address] [place] [address] Phone Care Team Providers Care Ledger Poster Name Role Phone Nahed Ramos MD Primary Care Provider + Cha Álvarez MD Unavailable [phone] Cha Álvarez MD Unavailable [phone] Encounter Details Date Type Department Care Team (Late st Contact Info) Description 05/08/2018 Ancillary Orders Virtual Department [address] [place] [address] Es Marr PA-C [address] [place] [address] [email or web address] Pulsatile tinnitus, bilateral Social History Tobacco Use Types Packs/Day Years [...] Description 01/11/2026 1:30 PM EDT Office Visit [facility] Orthopedics & Sports Medicine [address] [place] [address] [place] [address] Mina Ceballos MD [address] [place] [address] Orthopedics & Sports Medicine, [facility] [place] [address] [email or web address] documented as of this encounter Results * US Carotid Duplex (Bilateral) (05/18/2018 2:48 PM EDT) Anatomical Region Laterality Modality Heart, Thoracic Vasculature, Neck Ultrasound 05/18/2018 3:17 PM EDT Impressions 05/18/2018 3:18 PM EDT Minimal bilateral carotid plaquing without hemodynamically significant ICA stenoses demonstrated. POS - [id number] Narrative 05/18/2018 3:18 PM EDT COMPARISON: None CAROTID ULTRASOUND FINDINGS: Color duplex Doppler evaluation of the carotid arteries was performed. On the right there is a small amount of intimal thickening present in the CCA with minimal mixed calcium/noncalcified plaque present in the bulb. Peak systolic velocity in the common carotid artery was measured 0.84 m/s and within the internal carotid artery at 0.64 m/s corresponding to ratio of 0.76. No elevated diastolic velocities or significant ICA spectral broadening were demonstrated. On the left there is intimal thickening in the CCA with a small amount of calcified plaque present in the bulb. Peak systolic velocity in the common carotid artery was measured at 0.82 m/s and within the internal carotid artery at 0.79 m/s corresponding to a ratio of 0.96. No elevated diastolic velocities or significant ICA spectral broadening were demonstrated. The above measurements are consistent with the presence of less than 50% ICA stenoses. Antegrade flow was demonstrated in both vertebral arteries. Any stenosis measurement is relative to the distal ICA diameters. Procedure Note Rifken, Salomon L, MD - 05/18/2018 COMPARISON: None CAROTID ULTRASOUND FINDINGS: Color duplex Doppler evaluation of the carotid arteries was performed. On the right there is a small amount of intimal thickening present in theCCA with minimal mixed calcium/noncalcified plaque present in the bulb.Peak systolic velocity in the common carotid artery was measured 0.84 m/sand within the internal carotid artery at 0.64 m/s corresponding to ratioof 0.76. No elevated diastolic velocities or significant ICA spectralbroadening were demonstrated. On the left there is intimal thickening in the CCA with a small amount ofcalcified plaque present in the bulb. Peak systolic velocity in thecommon carotid artery was measured at 0.82 m/s and within the internalcarotid artery at 0.79 m/s corresponding to a ratio of 0.96. No elevateddiastolic velocities or significant ICA spectral broadening weredemonstrated. The above measurements are consistent with the presence of less than 50%ICA stenoses. Antegrade flow was demonstrated in both vertebralarteries. Any stenosis measurement is relative to the distal ICA diameters. IMPRESSION: Minimal bilateral carotid plaquing without hemodynamically significant ICAstenoses demonstrated. POS - [id number] us Hope Justa GERMAN CV US NEUROVASCULAR Final Re sult documented in this encounter Visit Diagnoses Diagnosis Pulsatile tinnitus, bilateral Pulsatile tinnitus, bilateral documented in this encounter Care Teams Ledger Poster Relationship Specialty Start Date End Date Nahed Ramos MD [address] [place] [address] [email or web address] PCP - General Family Medicine 04/21/18 Cha Álvarez MD [address] [place] [address] [email or web address] Consulting Provider Geriatric Medicine 12/29/20 Cha Álvarez MD [address] [place] [address] [email or web address] Geriatric Medicine 06/28/24 documented as of this encounter Additional Source Comments The information contained in this document represents components of the legal health record. It is not the complete legal health record.[facility]
--- OUTSIDE RECORDS SUMMARY | 2025-05-30 16:29 | XMS_ITS | Encounter Summary ---
Author Organization [facility] Address [address] [place] [address] Phone Care Team Providers Care Streaming Media Specialist Name Role Phone Nahed Ramos MD Primary Care Provider + Cha Álvarez MD Unavailable [phone] Cha Álvarez MD Unavailable [phone] Encounter Details Date Type Department Care Team (Late st Contact Info) Description 11/17/2024 Procedure Pass [facility], Ct Scan - [address] [address] Social History Tobacco Use Types Packs/Day Years [...] 4:04 AM EDT Vale Guaman RN * [place] Suicide Severity Rating Scale (Screener/Recent Self-Report) Question [...] PM EDT Office Visit [facility] Orthopedics & Sports Medicine [address] [place] [address] [place] [address] Mina Ceballos MD [address] [place] [address] Orthopedics & Sports Medicine, [place] [address] [email or web address] documented as of this encounter Visit Diagnoses Not on filedocumented in this encounter Additional Health Concerns Assessment Noted Time PHQ-9 Depression Total Score: 24 024 2:46 PM EDT PHQ-2 Depression Total Score: 5 12/02/19 24 2:46 PM EDT documented as of this encounter Care Teams Streaming Media Specialist Relationship Specialty Start Date End Date Nahed Ramos MD [address] [place] [address] [place] [address] PCP - General Family Medicine 04/21/18 Cha Álvarez MD [address] [place] [address] [place] [address] [email or web address] [email or web address] Provider Geriatric Medicine 12/29/20 Cha Álvarez MD [address] [place], [place] [phone] [email or web address] Geriatric Medicine 06/28/24 documented as of this encounter Additional Source Comments The information contained in this document represents components of the legal health record. It is not the complete legal health record.[facility]
== END 2025-05-30 14:24 | disposition home or self-care (01) ==
LOC: HO.HSMS 13:58
PROVIDERS: PCP Family Medicine; Visit Provider Psychiatry & Neurology Neurology
DX: G20.B1 Parkinson's disease with dyskinesia, without mention of fluctuations (principal)
CPT/HCPCS: 99214; G2211

== ENCOUNTER → 2025-05-30 13:58 | Outpatient (BNVA) | payer MEDICARE, SELFPAY | PROVIDERS: PCP Family Medicine; Visit Provider Psychiatry & Neurology Neurology | DX: G20.B1 Parkinson's disease with dyskinesia, without mention of fluctuations (principal) | CPT/HCPCS: 99212 ==